=== PATIENT | female | born 1985 | race Caucasian/White ===

== ENCOUNTER 2016-12-08 13:28 | Emergency (ER) | payer OTHER ==
[~2016-12-08] VITALS: Ht 157.5 cm; Wt 58.0 kg
[~2016-12-08 13:28] MED LIST: CEPH500C2 PO; PRENTAB26 PO
[2016-12-08 13:36] VITALS: TEMP 36.9; Ht 157.5 cm; Wt 58.0 kg
--- NOTE | 2016-12-08 14:44 | EMERGENCY ROOM VISIT NOTE ---
History First contact with patient: 14:01 Chief Complaint: LEG PAIN,LEG INJURY Stated Complaint: POSSIBLE ABSESS ON L CALF History of Present Illness The patient is a 31 year old female who presents to the Emergency Room via private vehicle accompanied by male with complaints of "possible abscess left calf". The patient states that 2-3 days ago she noticed a swelling of the right posterior calf. She states that she does have a history of recent abscesses, of which the most recent is on the right antecubital region. She states the right AC region was drained on Thursday by Dr. Paris. She was placed on clindamycin and had the packing removed yesterday. It is currently covered but now she points to the right calf as a location of a new abscess. She states she's been taking the clindamycin, and has a days left. She denies any nausea, vomiting, fevers, chills. Review of Systems A complete 10-point Review of Systems was discussed with the patient, with pertinent positives and negatives listed in the History of Present Illness. All remaining Review of Systems questions can be considered negative unless otherwise specified. Past Medical/Surgical History Medical Problems: (1) ruptured membranes 31 weeks 1day Surgical Problems: (1) H/O hernia repair (2) H/O: section Family History No significant family history Social History Smoking Status: Current Every Day Smoker Alcohol Use: occasionally Drug Use: none Marital Status: single Housing Status: lives alone Occupation Status: employed Current/Historical Medications Scheduled Buprenorphine Hcl-Naloxone Hcl (Suboxone 8-2 Mg), 8 MG SL AMPM Clindamycin Hcl (Cleocin), 300 MG PO Q6H Allergies Coded Allergies: Morphine (Unverified Allergy, Severe, RASH, 05/14/16) Sulfamethoxazole w/Trimethoprim (Verified Allergy, Intermediate, HIVES, ) Codeine (Verified Allergy, Unknown, HIVES, 05/14/16) Levofloxacin (Verified Allergy, Unknown, HIVES, 05/30/16) Nitrofurantoin (Verified Allergy, Unknown, 05/14/16) Penicillins (Verified Allergy, Unknown, AMOXICILLIN, 05/14/16) Quinolones (Verified Adverse Reaction, Intermediate, NEURO SIDE EFFECTS, ) Physical Exam Vital Signs Date Time Temp Pulse Resp B/P Pulse Ox O2 Delivery O2 Flow Rate FiO2 12/08/16 19:30 82 18 116/80 96 Room Air 12/08/16 17:57 79 16 113/75 95 12/08/16 15:41 86 16 109/63 98 Room Air 12/08/16 13:36 36.9 95 18 117/72 98 Room Air Physical Exam VITAL SIGNS - Vital signs and nursing notes were reviewed. Patient is afebrile , normotensive, non-tachycardic and is saturating well on room air 98% GENERAL -31-year-old female appearing her stated age who is in no acute distress. Communicates well with provider and answers questions appropriately. SKIN - there is an erythematous 5 x 5.5 cm raised fluctuant region of the right posterior mid calf. There is also a 4 x 4 centimeter erythematous slightly raised and excised/open and draining wound on the AC. HEAD - NC/AT. EYES - PERRL with EOMI bilaterally. Sclera anicteric. Palpebral conjunctiva pink and moist with no injection noted. EARS - No deformities of external structures noted on gross examination bilaterally. No pain elicited with palpation of the tragus bilaterally. External auditory canals without discharge or otorrhea. Tympanic membranes pearly justice without retraction or bulging. No fluid or purulent material visualized behind the TM. Handle of malleus, umbo, cone of light, pars tensa/ flaccid all easily visualized. NOSE - Midline and without cyanosis. No epistaxis or purulent drainage noted. Septum midline without deviation or septal hematoma noted. MOUTH/OROPHARYNX - Without perioral cyanosis. Buccal mucosa pink and moist and without leukoplakia. Tongue midline with equal elevation of palate bilaterally. No tonsillar hypertrophy, erythema, or exudates noted. [] dentition noted. NECK - Neck with FROM. Supple to palpation. [] lymphadenopathy noted. No nuchal rigidity. LUNGS - Chest wall symmetric without accessory muscle use, intercostals retractions, or central cyanosis. Normal vesicular breath sounds CTA B/L. No wheezes, rales, or rhonchi appreciated. CARDIAC - RRR with S1/S2. No murmur, rubs, or gallops appreciated. ABDOMEN - Abdominal contour [] without pulsations or visible masses. BS normoactive all four quadrants. No tenderness, palpable masses, hepatosplenomegaly, or ascites noted. EXTREMITIES - No clubbing or peripheral cyanosis. No pretibial edema present. +3 /5 radial, posterior tibial, and dorsalis pedis pulses palpated throughout. +5/ 5 strength noted in UE/LE bilaterally. NEUROLOGIC - Cranial nerves II through XII grossly intact. Sensory intact to light touch throughout. Patellar reflexes +2/4. PSYCH - A&Ox3 and cooperates fully with examiner. Pt is very pleasant and interacts well with examiner. Medical Decision & Procedures ER Provider Diagnostic Interpretation: Venous Doppler right leg RIGHT VENOUS DOPP LOWER EXT UNILAT CLINICAL HISTORY: Abscess of RLE, rule out additional DVT Right pain. Edema. TECHNIQUE: Ultrasound COMPARISON STUDY: None FINDINGS: Normal venous Doppler right leg IMPRESSION: Normal venous Doppler right leg Electronically signed by: David Jacobs M.D. 12/08/2016 5:52 PM Dictated Date/Time: 12/08/2016 5:51 PM Medications Administered Medications (Trade) Dose Ordered Sig/Kleber Route Start Time Stop Time Status Last Admin Dose Admin Lorazepam (Ativan Tab) 0.5 mg NOW STAT SL 12/08/16 18:14 12/08/16 18:16 DC 12/08/16 18:28 0.5 MG Medical Decision Patient was seen and evaluated as above. She presents with a clear abscess on the right lower extremity. She also has evidence of a healing, incision and drainage of the right antecubital fossa. I did offer drainage of the right leg but the patient declined, stating that she had atraumatic experience on Thursday with the drainage of the right arm. She was placed upon clindamycin at that time and has been taking it as prescribed. She has many antibiotic allergies. Thorough discussion was had with the patient and she continued to decline drainage. I stated that this is concerning, and he can become septic. She did agree to have a Doppler of the right lower extremity but obtained to rule out DVT as an additional ailment. This was negative. I informed the patient upon these findings and explained to her how I would drain the wound and extend her the importance of drainage and then she agreed to have the procedure. Although the patient is on our no narcotic list for prior behavior, I do believe it is appropriate in this setting to provide her with 0.5 mg of sublingual Ativan to help relax her for this procedure. I feel that if she does not have this performed at this time she will likely return anymore infectious state with potential sepsis. Thorough benefit versus risk was discussed with the patient regarding the procedure. The region was cleansed with Betadine and anesthetized with 2 mL's of 1% buffered lidocaine. Patient started to swell. It was draped in sterile fashion. An 11 blade scalpel was utilized to create a subcentimeter incision into the wound pocket. This expressed a dark bloody purulent material. Culture was sent to lab. The region was then thoroughly expressed digitally, and then irrigated with normal saline under pressure followed by sterile packing. She is to return in 48 hours for recheck and removal of the packing. She is to return sooner for worsening of her symptoms. An ultrasound was performed bedside of the right arm to rule out localized collection. Cobblestoning was noted without evidence of drainable pocket this time. This was also cleansed and dressed. The leg was also dressed with an abdominal pad. Patient was educated upon today's findings as well as to follow- up here in 48 hours or with her family doctor. She is to continue clindamycin which she is indicated she has. She was educated upon worrisome symptoms in which to return. She had questions prior to discharge and was discharged home in good condition. In evaluation treatment this patient the following differential diagnoses were entertained: DVT, cellulitis, abscess, sepsis, sirs, among others. Impression Primary Impression: Abscess of right leg Additional Impression: Abscess of right arm Departure Information Dispostion Home / Self-Care Condition GOOD Referrals Mario Hercules III, M.D. (PCP) David Salinas M.D. Patient Instructions My [facility] Additional Instructions You were seen in the emergency Department for an abscess of the right lower extremity and right arm. Please continue the Clindamycin. You may try calling the surgeon, Dr. Salinas with number listed above to discuss potential excision. Please return with fevers, chills, worsening redness or swelling or any new/ concerning symptoms. Please return to the emergency department with any new/concerning symptoms. Problem Qualifiers
--- NOTE | 2016-12-08 17:53 | DIAGNOSTIC IMAGING REPORT ---
Venous Doppler right leg RIGHT VENOUS DOPP LOWER EXT UNILAT CLINICAL HISTORY: Abscess of RLE, rule out additional DVT Right pain. Edema. TECHNIQUE: Ultrasound COMPARISON STUDY: None FINDINGS: Normal venous Doppler right leg IMPRESSION: Normal venous Doppler right leg Electronically signed by: David Jacobs M.D. 12/08/2016 5:52 PM Dictated Date/Time: 12/08/2016 5:51 PM
[2016-12-08] MEDS ORDERED: LORAZEPAM 0.5 MG TAB SL STA (18:14)
[2016-12-08] MEDS ORDERED: XYLOCAINE 1%/SOD BICARB 20 ML VIAL INFIL STA (18:14)
--- NOTE | 2016-12-08 19:14 | EMERGENCY ROOM VISIT NOTE ---
ED Visit Note First contact with patient: 14:01 Staff note: I have reviewed the Patients chart and have discussed this case with my PA. I generally agree with the ED note and findings.
[2016-12-08 19:30] VITALS: BP 116/80; PULSE 82; O2SAT 96
[2016-12-10] MEDS ORDERED: CLIN300C2 PO (13:46)
--- NOTE | 2016-12-10 13:53 | Pharmacy Progress Note ---
ED Pharmacist Culture FollowUp Date of Service: Dec 10, 2016. Patient was receiving clindamycin prior to arrival, which should cover the Staph aureus (MSSA) growing from the patient's wound culture.
== END 2016-12-08 19:30 | disposition home or self-care (01) ==
LOC: C.EDB 13:29 → C.EDD 19:30
DX: L02.415 Cutaneous abscess of right lower limb (principal); L02.413 Cutaneous abscess of right upper limb; F17.210 Nicotine dependence, cigarettes, uncomplicated; Z79.2 Long term (current) use of antibiotics; Z79.899 Other long term (current) drug therapy

== ENCOUNTER 2016-12-10 14:59 | Emergency (ER) | payer OTHER ==
[~2016-12-10] VITALS: Ht 157.5 cm; Wt 56.5 kg
[~2016-12-10 14:59] MED LIST changes: -CEPH500C2 PO; +CLIN300C2 PO; -PRENTAB26 PO
[2016-12-10 15:03] VITALS: TEMP 36.5; Ht 157.5 cm; Wt 56.5 kg
[2016-12-10] MEDS ORDERED: SERT50TA PO (15:35)
[2016-12-10] MEDS ORDERED: ACET-1256 PO (15:35)
[2016-12-10] MEDS ORDERED: CLON1TAB3 PO (15:35)
[2016-12-10] MEDS ORDERED: IBUP-103 PO (15:35)
--- NOTE | 2016-12-10 15:59 | EMERGENCY ROOM VISIT NOTE ---
History First contact with patient: 15:17 Chief Complaint: OTHER COMPLAINT Stated Complaint: RETURN FOLLOW UP History of Present Illness The patient is a 31 year old female who presents to the Emergency Room via private vehicle with complaints of "return follow-up". She was seen here 2 days ago for I&D of her right leg and management of her right arm abscess. The patient states that she believes the wounds are healing well, and has been taking the clindamycin. She denies any fevers, chills, nausea, vomiting, chest pain or shortness of breath. She denies any red streaking. Review of Systems A complete 6-point Review of Systems was discussed with the patient, with pertinent positives and negatives listed in the History of Present Illness. All remaining Review of Systems questions can be considered negative unless otherwise specified. Past Medical/Surgical History Medical Problems: (1) ruptured membranes 31 weeks 1day Surgical Problems: (1) H/O hernia repair (2) H/O: section Family History No significant family history Social History Smoking Status: Current Every Day Smoker Alcohol Use: occasionally Drug Use: none Marital Status: single Housing Status: lives alone Occupation Status: employed Current/Historical Medications Scheduled Buprenorphine Hcl-Naloxone Hcl (Suboxone 8-2 Mg), 8 MG SL AMPM Clindamycin Hcl (Cleocin), 300 MG PO Q6H Sertraline (Zoloft), 50 MG PO DAILY Scheduled PRN Acetaminophen (Tylenol), 1,000 MG PO Q6H PRN for Pain Clonazepam (Klonopin), 1 MG PO DAILY PRN for Anxiety Ibuprofen Tab (Advil), 400 MG PO Q6H PRN for Pain Allergies Coded Allergies: Morphine (Unverified Allergy, Severe, RASH, 05/14/16) Sulfamethoxazole w/Trimethoprim (Verified Allergy, Intermediate, HIVES, ) Codeine (Verified Allergy, Unknown, HIVES, 05/14/16) Levofloxacin (Verified Allergy, Unknown, HIVES, 05/30/16) Nitrofurantoin (Verified Allergy, Unknown, 05/14/16) Penicillins (Verified Allergy, Unknown, AMOXICILLIN, 05/14/16) Quinolones (Verified Adverse Reaction, Intermediate, NEURO SIDE EFFECTS, ) Physical Exam Vital Signs Date Time Temp Pulse Resp B/P Pulse Ox O2 Delivery O2 Flow Rate FiO2 12/10/16 16:21 89 16 135/93 96 12/10/16 15:03 36.5 91 16 108/78 96 Room Air Physical Exam VITAL SIGNS - Vital signs and nursing notes were reviewed. Patient is afebrile , normotensive, non-tachycardic and saturating well on room air at 96%. GENERAL -31 -year-old female appearing her stated age who is in no acute distress. Communicates well with provider and answers questions appropriately. SKIN - Without rashes. There is slight erythema extending beyond the circumferential marie created by the marking pen. There is evidence of less edema, and overall the erythema is improving. No evidence of worsening. Minimal drainage. This is for both of the sites. Medical Decision & Procedures Medical Decision The patient was seen and evaluated as above. I was personally involved in her case on her previous visit. I recommended she return for 48 hour recheck, which she is here for today. The right antecubital area incision and drainage which was performed by family doctor showing signs of healing with minimal drainage. There is a thin layer of biofilm overlying beefy red granulation tissue on the right AC. This was cleansed with normal saline and dressed with bacitracin, Telfa and Coban. For the right calf, I did elect to remove the packing, thoroughly irrigated with saline and then dressed this with Telfa and paper tape. Patient tolerated this well. Overall improvement. She brought her clindamycin tablets with her and still has 30 tablets. She is to take this 1 tablet every 6 hours for the next 7 days. She seems to have good clinical improvement. She is to follow-up in 48 hours with her family doctor or return here for persistent or worsening symptoms. She was educated upon worrisome symptoms which returned, and was discharged home in good condition. In the evaluation treatment this patient the following differential diagnoses were entertained: Healing cellulitis, sepsis, SIRS, among others. Impression Primary Impression: Encounter for wound re-check Additional Impression: healing abscess and cellulitis Departure Information Dispostion Home / Self-Care Condition GOOD Referrals No Doctor, Assigned (PCP) Patient Instructions My [facility] Additional Instructions You were seen in the emergency Department for a wound recheck of your right arm and right leg. These appear to be improving. Please continue the dressings as we discussed. Please only use the bacitracin/antibiotic ointment for the next 2-3 days. Please and keep a dry dressing on the wound until healed. Please do not allow the area be too moist. It is recommended that you either return here or follow-up with her family doctor for an additional recheck in 48 hours. As we discussed if you has worsening or persistent symptoms please return. If you develop any increased redness, swelling, drainage, chills, fever, nausea, vomiting or any new/ concerning symptoms please return immediately. Please return to emergency department with any new/concerning symptoms. Problem Qualifiers
[2016-12-10 16:21] VITALS: BP 135/93; PULSE 89; O2SAT 96
[2016-12-10] MEDS ORDERED: BUPR8MIS SL (21:17)
== END 2016-12-10 16:21 | disposition home or self-care (01) ==
LOC: C.EDB 15:00 → C.EDD 16:21
DX: Z09 Encounter for follow-up examination after completed treatment for conditions other than malignant neoplasm (principal); L02.413 Cutaneous abscess of right upper limb; L02.415 Cutaneous abscess of right lower limb; F17.210 Nicotine dependence, cigarettes, uncomplicated; Z79.899 Other long term (current) drug therapy

== ENCOUNTER 2016-12-15 15:15 | Emergency (ER) | payer OTHER ==
[~2016-12-15] VITALS: Ht 157.5 cm; Wt 59.4 kg
[~2016-12-15 15:15] MED LIST changes: +ACET-1256 PO; +BUPR8MIS SL; +CLON1TAB3 PO; +IBUP-103 PO; +SERT50TA PO
[2016-12-15 15:31] VITALS: TEMP 36.7; Ht 157.5 cm; Wt 59.4 kg
--- NOTE | 2016-12-15 16:20 | DIAGNOSTIC IMAGING REPORT ---
LEFT SHOULDER MIN 2 VIEWS ROUTINE CLINICAL HISTORY: Left shoulder pain COMPARISON: None. DISCUSSION: No fractures or dislocations are visualized. There are no visible periarticular calcifications. IMPRESSION: No fractures dislocations or destructive lesions are visualized Electronically signed by: Manny Abbasi M.D. 12/15/2016 4:19 PM Dictated Date/Time: 12/15/2016 4:18 PM
[2016-12-15] MEDS ORDERED: SERT50TA PO (16:31)
[2016-12-15] MEDS ORDERED: CYCL10TA6 PO (17:01)
[2016-12-15 17:20] VITALS: BP 102/68; PULSE 98; O2SAT 98
--- NOTE | 2016-12-16 17:04 | EMERGENCY ROOM VISIT NOTE ---
ED Visit Note First contact with patient: 15:54 Chief Complaint: Left shoulder pain. History of Present Illness: Ms. Hammer is a 31-year-old female who ambulates into the ED accompanied by a male friend complaining of left shoulder pain. Historically patient denies any significant injuries or surgeries to the left shoulder. Patient reports yesterday morning she woke from sleep with left shoulder pain. She reports any pain before going to sleep and denies any significant direct or repetitive trauma over the last few days. Since waking yesterday she reports she's been having increasing pain. Currently she describes her pain as a sharp and throbbing sensation. She places the majority of her discomfort in the midportion of the trapezius between the shoulder blades but there is also pain located in the lateral portion of the trapezius. She rates her discomfort 6/10. Her pain is nonradiating. Her pain worsens with palpation throughout the trapezius muscle also movements of her shoulder above her head. She has not identified any alleviating factors related to the pain. She has not taken any medications for pain prior to arrival at the hospital. She denies any associated symptoms including fevers, chills, sweats, skin eruptions, skin color changes, headaches , neck pain/stiffness, upper respiratory tract symptoms, upper extremity weakness/numbness/tingling. Review of Systems: As noted above in history of present illness. 8 body systems were reviewed and found to be negative as noted above. Past Medical History: Bronchitis, pneumonia, unspecified urinary problems, status post section and unspecified hernia repair. Current Medications: Suboxone, Cleocin, Tylenol, ibuprofen, Klonopin, Zoloft. Allergies to Medications: Codeine, morphine, Bactrim, Levaquin, penicillin, quinolones, nitrofurantoin. Social History: Patient is currently employed; she feels safe in her home environment; she admits to tobacco and alcohol use. Physical Examination: Vital Signs: Date Time Temp Pulse Resp B/P Pulse Ox O2 Delivery O2 Flow Rate FiO2 12/15/16 17:20 98 16 102/68 98 Room Air 12/15/16 15:31 36.7 110 17 108/84 97 Room Air GENERAL: 31-year-old female in mild to moderate distress due to pain, nontoxic- appearing, afebrile and hemodynamically stable. NEUROLOGICAL: Awake, alert and oriented to person, place and time. Answering questions appropriately and following commands. Normal gait. Good hand eye coordination. No focal motor sensory deficits. SKIN: Warm, dry and pink. No soft tissue eruptions or trauma noted. HEENT: Atraumatic and normocephalic. BACK: No tenderness over the bony cervical and thoracic spine. Patient does have moderate tenderness through the left trapezius muscle between the scapula and over the midportion above the clavicle. There is spasm predominantly in the area between a scapula. There is no local step-offs, swelling, ecchymosis or erythema. No CVA tenderness. THORAX: Lungs sounds are clear to auscultation and equal bilaterally with symmetrical chest wall. No wheezing, rales or rhonchi. LEFT UPPER EXTREMITY: No bony tenderness over the clavicle, acromioclavicular joint, humeral head, scapula or proximal humerus. Full range of motion in all movements of the shoulder against resistance. 2+ tricipital, bicipital and brachial radialis deep tendon reflexes intact and equal bilaterally. 4/5 muscle strength in all movements of the shoulder. Distal pulses and sensations are intact. ED Course: Patient is assessed as noted above. Left Shoulder X-Rays: Were read by myself and the radiologist showing no acute fractures or dislocations. No signs of degenerative changes. Patient shoulder was placed in a sling. Patient was educated about tonight's findings and instructed on her treatment plan; she verbalizes understanding and agreement with this plan. Clinical Impression: Trapezius muscle spasm. Disposition: Patient discharged home in stable condition accompanied by male friend; prior to departure she was reassessed and subjectively reported she was feeling worse and rated her discomfort 6/10. Plan: Comfort measures including alternating ibuprofen and acetaminophen, ice and sling use were discussed with the patient. Patient was placed on a Flexeril 10 mg every 8 hours for muscle spasm. Patient was encouraged to exit the sling every couple hours while awake in the day and do simple range of motion exercises. Patient was encouraged to follow-up with her primary care physician for recheck in 3-4 days and possible referral to orthopedics. Patient was encouraged return the ED for worsening/uncontrolled pain, extremity weakness/numbness/tingling or any new/concerning symptoms.
== END 2016-12-15 17:20 | disposition home or self-care (01) ==
LOC: C.EDB 15:16 → C.EDD 17:20
DX: M62.838 Other muscle spasm (principal)

== ENCOUNTER 2017-03-11 16:18 | Emergency (ER) | payer OTHER ==
[~2017-03-11] VITALS: Ht 157.5 cm; Wt 54.9 kg
[2017-03-11 16:24] VITALS: TEMP 36.7; Ht 157.5 cm; Wt 54.9 kg
[2017-03-11] MEDS ORDERED: SERT-234 PO (17:30)
--- NOTE | 2017-03-11 17:59 | DIAGNOSTIC IMAGING REPORT ---
CERVICAL SPINE 5 VIEWS HISTORY: neck/upper back pain/spasms COMPARISON: None. FINDINGS: The cervical spine is visualized from C1 through the superior endplate of T1. There is no fracture. No subluxation. Mild reversal of the normal lordotic curvature. Mild anterior disc space narrowing at C5-C6. Remaining disc spaces are preserved. Bilateral neural foraminal pain. Prevertebral soft tissues and the atlantodens interval are intact. IMPRESSION: No fracture or subluxation within the cervical spine. Reversal of the normal curvature with mild anterior disc space narrowing at C5-C6. Electronically signed by: Sander Guerrero M.D. 03/11/2017 5:57 PM Dictated Date/Time: 03/11/2017 5:56 PM
--- NOTE | 2017-03-11 17:59 | DIAGNOSTIC IMAGING REPORT ---
THORACIC SPINE 3 VIEWS HISTORY: neck/upper back pain/spasms COMPARISON: None. FINDINGS: There is no fracture. No subluxation. Disc spaces are preserved. IMPRESSION: No fracture or subluxation within the thoracic spine. Electronically signed by: Sander Guerrero M.D. 03/11/2017 5:58 PM Dictated Date/Time: 03/11/2017 5:57 PM
[2017-03-11] MEDS ORDERED: KETOROLAC TROMETHAMINE 60 MG/2 ML VIAL IM STA (18:46)
[2017-03-11] MEDS ORDERED: NAPR-1169 PO (18:49)
--- NOTE | 2017-03-11 18:50 | EMERGENCY ROOM VISIT NOTE ---
History First contact with patient: 16:47 Chief Complaint: SHOULDER PAIN Stated Complaint: LEFT SHOULDER INJURY History of Present Illness The patient is a 31 year old female who presents to the Emergency Room with complaints of left shoulder pain. The patient states she has a history of chronic left shoulder pain. She has dislocated her shoulder in the past and states that she had a flareup of her pain several years ago. She reports that she perform physical therapy in the past which helped. She has had an MRI which showed an issue with the cartilage. She states that she woke up with pain a few days ago. The pain radiates from her left neck/upper back into the shoulder. It does not radiate down the arm. She denies any numbness or weakness. She rates the discomfort an 8/10. She takes muscle relaxers at home for the pain. Review of Systems A complete 10 point review of systems was reviewed with the patient with pertinent positives and negatives as per history of present illness. All else were negative. Past Medical/Surgical History Medical Problems: (1) ruptured membranes 31 weeks 1day Surgical Problems: (1) H/O hernia repair (2) H/O: section Family History No significant family history Social History Smoking Status: Current Every Day Smoker Alcohol Use: occasionally Drug Use: none Marital Status: single Housing Status: lives alone Occupation Status: employed Current/Historical Medications Scheduled Buprenorphine Hcl-Naloxone Hcl (Suboxone 8-2 Mg), 8 MG SL AMPM Naproxen (Naprosyn), 500 MG PO DAILY Sertraline (Zoloft), 100 MG PO QPM Tizanidine (Zanaflex), 4 MG PO BID Scheduled PRN Acetaminophen (Tylenol), 1,000 MG PO Q6H PRN for Pain Clonazepam (Klonopin), 1 MG PO DAILY PRN for Anxiety Ibuprofen Tab (Advil), 400 MG PO Q6H PRN for Pain Allergies Coded Allergies: Morphine (Unverified Allergy, Severe, RASH, 03/11/17) Sulfamethoxazole w/Trimethoprim (Verified Allergy, Intermediate, HIVES, ) Codeine (Verified Allergy, Unknown, HIVES, 03/11/17) Levofloxacin (Verified Allergy, Unknown, HIVES, 03/11/17) Nitrofurantoin (Verified Allergy, Unknown, 03/11/17) Penicillins (Verified Allergy, Unknown, AMOXICILLIN, 03/11/17) Quinolones (Verified Adverse Reaction, Intermediate, NEURO SIDE EFFECTS, ) Physical Exam Vital Signs Date Time Temp Pulse Resp B/P (MAP) Pulse Ox O2 Delivery O2 Flow Rate FiO2 03/11/17 19:28 93 18 99/65 97 Room Air 03/11/17 16:24 36.7 107 16 102/65 95 Room Air Physical Exam VITALS: Vitals are noted on the nurse's note and reviewed by myself. Vital signs stable. GENERAL: This is a 31-year-old female, in no acute distress, nondiaphoretic, well-developed well-nourished. HEART: Regular rate and rhythm without murmurs gallops or rubs. LUNGS: Clear to auscultation bilaterally without wheezes, rales or rhonchi. MUSCULOSKELETAL: There is diffuse tenderness over the left trapezius muscle and left cervical and upper thoracic paraspinous muscles. Full range of motion of the shoulder. Strength 5/5 in bilateral upper extremities. NEURO: Patient was alert and oriented to person place and time. Normal sensation to light and sharp touch. Medical Decision & Procedures ER Provider Diagnostic Interpretation: CERVICAL SPINE 5 VIEWS FINDINGS: The cervical spine is visualized from C1 through the superior endplate of T1. There is no fracture. No subluxation. Mild reversal of the normal lordotic curvature. Mild anterior disc space narrowing at C5-C6. Remaining disc spaces are preserved. Bilateral neural foraminal pain. Prevertebral soft tissues and the atlantodens interval are intact. IMPRESSION: No fracture or subluxation within the cervical spine. Reversal of the normal curvature with mild anterior disc space narrowing at C5-C6. THORACIC SPINE 3 VIEWS FINDINGS: There is no fracture. No subluxation. Disc spaces are preserved. IMPRESSION: No fracture or subluxation within the thoracic spine. Medications Administered Medications (Trade) Dose Ordered Sig/Kleber Route Start Time Stop Time Status Last Admin Dose Admin Ketorolac Tromethamine (Toradol Inj) 60 mg NOW STAT IM 03/11/17 18:46 03/11/17 18:48 DC 03/11/17 18:30 60 MG ED Course The patient was evaluated as above. X-rays of the cervical and thoracic spine were performed and read by radiology as above. Patient was reevaluated and findings were discussed. She will be given an injection of Toradol. Discharge instructions were reviewed with the patient. The patient verbalized understanding of my assessment and treatment plan and was discharged home in good condition. Medical Decision Differential diagnosis includes cervical radiculopathy, muscle spasm, rotator cuff injury, among others. The patient was evaluated as above. She has tenderness primarily in the left trapezius muscle. C-spine x-ray did show some reversal of the normal curvature. The patient likely has pain secondary to muscle spasm. She is already taking muscle relaxers at home. She was prescribed naproxen and conservative measures were discussed. The patient will follow-up with orthopedics. She verbalized understanding of my assessment and treatment plan and was discharged home in good condition. Medication reconciliation: I attest that I have personally reviewed the patient 's current medication list. Blood pressure screening: Patient was found to have normal blood pressure on screening and does not require follow-up. Impression Primary Impression: Cervical paraspinal muscle spasm Departure Information Dispostion Home / Self-Care Condition GOOD Prescriptions Naproxen (Naprosyn) 500 Mg Tab 500 MG PO DAILY for 7 Days, #7 TAB Prov: Sheila Reynoso ., VENKATA 03/11/17 Referrals Mario Hercules III, M.D. (PCP) Patient Instructions My [facility] Additional Instructions Naprosyn as prescribed. Continue the muscle relaxers at home. Rest the shoulder as much as possible. Some gentle stretching may help. Follow up with orthopedics as scheduled. Return to the emergency department with any new/concerning symptoms.
[2017-03-11] MEDS ORDERED: TIZA4CAP PO (19:04)
[2017-03-11 19:28] VITALS: BP 99/65; PULSE 93; O2SAT 97
== END 2017-03-11 19:30 | disposition home or self-care (01) ==
LOC: C.EDB 16:19 → C.EDD 19:30
DX: M62.838 Other muscle spasm (principal); F17.200 Nicotine dependence, unspecified, uncomplicated; Z79.899 Other long term (current) drug therapy; Z88.0 Allergy status to penicillin; Z88.2 Allergy status to sulfonamides; Z88.5 Allergy status to narcotic agent; Z88.8 Allergy status to other drugs, medicaments and biological substances

== ENCOUNTER 2017-04-04 13:42 | Emergency (ER) | payer OTHER ==
[~2017-04-04] VITALS: Ht 157.5 cm; Wt 58.3 kg
[~2017-04-04 13:42] MED LIST changes: -CLIN300C2 PO; +SERT-234 PO; -SERT50TA PO; +TIZA4CAP PO
[2017-04-04 13:48] VITALS: TEMP 37.2; Ht 157.5 cm; Wt 58.3 kg
[2017-04-04] MEDS ORDERED: XYLOCAINE 1%/SOD BICARB 20 ML VIAL INFIL ONE (14:15)
[2017-04-04] MEDS ORDERED: CLINDAMYCIN IV 900 MG in DEXTROSE 5% 100ML 100 ML IV ONE (15:00)
[2017-04-04 15:55] LABS: BASO % 0.2 %; BASO ABS # 0.02 K/uL (0-0.2); COMPLETE YES; EOS % 2.4 %; HEMATOCRIT 29.5 % (37-47); IG% 0.2 %; LYMPH % 28.5 %; LYMPH ABS # 2.34 K/uL (1.2-3.4); MEAN CORPUSCULAR HEMOGLOBIN 27.9 pg (25-34); MEAN CORPUSCULAR HGB CONC 33.2 g/dl (32-36); NEUT % 63.7 %; PLATELET COUNT 236 K/uL (130-400); RED BLOOD COUNT 3.51 M/uL (4.2-5.4); WHITE BLOOD COUNT 8.21 K/uL (4.8-10.8)
[2017-04-04 16:13] LABS: CALCIUM 8.4 mg/dl (8.5-10.1); CREATININE 0.54 mg/dl (0.60-1.20); POTASSIUM 3.7 mmol/L (3.5-5.1)
[2017-04-04 17:26] LABS: URINE APPEARANCE CLEAR (CLEAR); URINE BILIRUBIN NEG (NEG); URINE COLOR YELLOW; URINE EPITHELIAL CELL AUTO >30 /lpf (0-5); URINE NITRITE POS (NEG); URINE SPECIFIC GRAVITY 1.013 (1.000-1.030); UROBILINOGEN NEG (NEG)
[2017-04-04 17:28] LABS: MANUAL MICROSCOPIC REQUIRED? NO; REVIEW REQ? NO
[2017-04-04 17:32] VITALS: BP 111/77; PULSE 112; O2SAT 98
[2017-04-04] MEDS ORDERED: CLC/300 PO (17:42)
--- NOTE | 2017-04-04 22:49 | EMERGENCY ROOM VISIT NOTE ---
ED Visit Note First contact with patient: 13:53 CHIEF COMPLAINT: Painful mass on the right lateral lower leg and right bicep HISTORY OF PRESENT ILLNESS: This 32-year-old white female patient noticed a hard tender area on her right calf and her right bicep 2 days ago. They are slowly getting larger, more painful and tender. She states she had a fever last night of 103, but is currently afebrile. No nausea, vomiting, or loss of appetite. There has been no drainage from the areas. There was no injury to the areas preceding the infection. No treatment yet. Pain is 9/10. Positive prior history of similar episode. She is well-known to the ED. She previously had an abscess on this right leg in December. She underwent successful I&D here. She has a history of IV drug abuse but denies any recent use. She is also concerned about a possible UTI. She has had some urgency and dysuria. She has a history of UTIs. No hematuria. Her and child accompany her today. REVIEW OF SYSTEMS: REVIEW OF SYSTEM: HEENT: No dizziness, visual problems, hearing loss, or tinnitus. There is no difficulty swallowing and no oral lesions are present. LYMPH: No adenopathy. PULMONARY: No cough, shortness of breath, sputum production or hemoptysis. CARDIOVASCULAR: No chest pain, palpitations, shortness of breath or peripheral edema. GASTROINTESTINAL: No diarrhea, constipation, nausea, vomiting, or abdominal pain. GENITOURINARY: No dysuria, frequency, urgency or nocturia. NEUROLOGIC: No weakness, muscle tenderness, epilepsy or history of neurological problems. No history of chronic headaches. MUSCULOSKELETAL: No history of joint tenderness/swelling. No history of arthritis or arthralgias. SKIN: No rashes. PSYCHIATRIC: No history of depression or mental illness. ENDOCRINE: No history of diabetes, thyroid disorders, or abnormal hair growth. PMH: Supplemental sheet was reviewed and signed. Previous surgeries: Medical History: Significant for history of IV drug abuse. Current medications: Reviewed and filed in patient's chart Allergies: Codeine, Levaquin, morphine, Macrobid, penicillin, quinolones, Bactrim Family history: Noncontributory. Last tetanus: Unknown SOCIAL HISTORY: . Positive tobacco use. Unemployed. PHYSICAL EXAM: Vital Signs: Temperature 37.2. Normal BP. Reviewed and filed in patient's chart. General: Well-developed, well-nourished, young white female , who looks older than her stated age. Laying on a bed. Alert and oriented. She is anxious and tearful. Skin: There is an indurated area on the lateral right calf which measures about 6cm in diameter. It is firm. There is a red zone of inflammation around it that measures around 11 cm in diameter but no lymphangitis. It is warm to touch. There is a large pustule in the center. Active drainage. Area is very tender to touch. She has a second area of induration on her anterior right bicep. It is approximately 3 cm in diameter. There is also a zone of inflammation around it measuring around 5 cm in diameter. It is also warm to touch and very tender. No pustules present. Multiple other scars are present on her arms and legs from previous abscesses. She also has numerous scars on her arms that are consistent with previous IV drug use. MUSCULOSKELETAL: Patient has intact motor function to the ankle, knee, and elbow on the right side. Normal strength. Neurologic: Gross sensation is intact across the upper and lower extremities by soft touch. Data: UA obtained today is questionable for UTI. Cultures were sent. CBC and PRP were obtained. They are unremarkable. No elevation in white count. EMERGENCY DEPARTMENT COURSE: Informed oral consent was obtained for incision and drainage. Right calf and right bicep were prepped with Betadine and draped with a sterile towel. Wounds were anesthetized using 3ml 1% plain lidocaine in a direct infiltration for each. #11 blade was used to sharply incised the abscesses. Copious purulent material was expressed from the wounds. Both abscesses was probed using needle drivers to break up interior loculations. Wound was irrigated copiously using Betadine diluted with normal sterile saline under jet spray lavage. They were then packed using sterile ribbon gauze. Outer dressing was placed. IV was established with significant difficulty. Upper extremity veins were unsuccessful and access was obtained through her dorsal foot. Labs were obtained. She was given clindamycin 900 mg IV in the ED. DIAGNOSIS: Skin Abscess of the right lower leg and right bicep DISCHARGE INSTRUCTIONS & TREATMENT: Patient was educated regarding today's findings. Conservative care measures were discussed. Change the dressings if it becomes soiled or blood-stained and return to the ED in 48 hours to remove the noemi. Prescription was given for clindamycin 300 mg 3 times a day for 7 days. Return if any problems such as fever or increasing pain develop. See a general surgeon if an abscess re-occurs in the same area in the future for consideration of excision. Skin abscess handout was provided. Warm moist compresses to the area several times a day to promote drainage. Possibility of early UTI was discussed. This should be covered using her clindamycin 7 days. She may obtain final cultures when she returns for her packing removal. Possibility of MRSA colonization was discussed given her frequency of abscesses. She was tested in 2007 and was negative. Conservative she speak with her PCP about additional testing. Possibility of abscesses resulting from subcutaneous illegal drug injection was also discussed. She continues to deny IV drug use at this time. Problem List Surgical Problems: (1) H/O hernia repair Status: Resolved (2) H/O: section Status: Resolved Current/Historical Medications Scheduled Buprenorphine Hcl-Naloxone Hcl (Suboxone 8-2 Mg), 8 MG SL AMPM Clindamycin HCl (Clindamycin HCl), 1 CAP PO TID Sertraline (Zoloft), 100 MG PO QPM Tizanidine (Zanaflex), 4 MG PO BID Scheduled PRN Acetaminophen (Tylenol), 1,000 MG PO Q6H PRN for Pain Clonazepam (Klonopin), 1 MG PO DAILY PRN for Anxiety Ibuprofen Tab (Advil), 400 MG PO Q6H PRN for Pain Allergies Coded Allergies: Morphine (Unverified Allergy, Severe, RASH, 04/04/17) Sulfamethoxazole w/Trimethoprim (Verified Allergy, Intermediate, HIVES, ) Codeine (Verified Allergy, Unknown, HIVES, 04/04/17) Levofloxacin (Verified Allergy, Unknown, HIVES, 04/04/17) Nitrofurantoin (Verified Allergy, Unknown, 04/04/17) Penicillins (Verified Allergy, Unknown, AMOXICILLIN, 04/04/17) Quinolones (Verified Adverse Reaction, Intermediate, NEURO SIDE EFFECTS, ) Vital Signs Date Time Temp Pulse Resp B/P (MAP) Pulse Ox O2 Delivery O2 Flow Rate FiO2 04/04/17 17:32 112 18 111/77 98 Room Air 04/04/17 13:48 37.2 125 20 118/73 100 Room Air Laboratory Results 04/04/17 15:46 Red Blood Count 3.51, Mean Corpuscular Volume 84.0, Mean Corpuscular Hemoglobin 27.9, Mean Corpuscular Hemoglobin Concent 33.2, Mean Platelet Volume 10.0, Neutrophils (%) (Auto) 63.7, Lymphocytes (%) (Auto) 28.5, Monocytes (%) (Auto) 5.0, Eosinophils (%) (Auto) 2.4, Basophils (%) (Auto) 0.2, Neutrophils # (Auto) 5.22, Lymphocytes # (Auto) 2.34, Monocytes # (Auto) 0.41, Eosinophils # (Auto) 0.20, Basophils # (Auto) 0.02 04/04/17 15:46 Test 04/04/17 15:46 04/04/17 17:10 White Blood Count 8.21 K/uL (4.8-10.8) Red Blood Count 3.51 M/uL (4.2-5.4) Hemoglobin 9.8 g/dL (12.0-16.0) Hematocrit 29.5 % (37-47) Mean Corpuscular Volume 84.0 fL (80-100) Mean Corpuscular Hemoglobin 27.9 pg (25-34) Mean Corpuscular Hemoglobin Concent 33.2 g/dl (32-36) Platelet Count 236 K/uL (130-400) Mean Platelet Volume 10.0 fL (7.4-10.4) Neutrophils (%) (Auto) 63.7 % Lymphocytes (%) (Auto) 28.5 % Monocytes (%) (Auto) 5.0 % Eosinophils (%) (Auto) 2.4 % Basophils (%) (Auto) 0.2 % Neutrophils # (Auto) 5.22 K/uL (1.4-6.5) Lymphocytes # (Auto) 2.34 K/uL (1.2-3.4) Monocytes # (Auto) 0.41 K/uL (0.11-0.59) Eosinophils # (Auto) 0.20 K/uL (0-0.5) Basophils # (Auto) 0.02 K/uL (0-0.2) RDW Standard Deviation 44.9 fL (36.4-46.3) RDW Coefficient of Variation 14.4 % (11.5-14.5) Immature Granulocyte % (Auto) 0.2 % Immature Granulocyte # (Auto) 0.02 K/uL (0.00-0.02) Anion Gap 4.0 mmol/L (3-11) Est Creatinine Clear Calc Drug Dose 117.2 ml/min Estimated GFR () 143.7 Estimated GFR (Non- 124.0 BUN/Creatinine Ratio 10.0 (10-20) Calcium Level 8.4 mg/dl (8.5-10.1) Urine Color YELLOW Urine Appearance CLEAR (CLEAR) Urine pH 7.0 (4.5-7.5) Urine Specific [place] 1.013 (1.000-1.030) Urine Protein NEG (NEG) Urine Glucose (UA) NEG (NEG) Urine Ketones NEG (NEG) Urine Occult Blood NEG (NEG) Urine Nitrite POS (NEG) Urine Bilirubin NEG (NEG) Urine Urobilinogen NEG (NEG) Urine Leukocyte Esterase TRACE (NEG) Urine WBC (Auto) 5-10 /hpf (0-5) Urine RBC (Auto) 0-4 /hpf (0-4) Urine Hyaline Casts (Auto) 0 /lpf (0-5) Urine Epithelial Cells (Auto) >30 /lpf (0-5) Urine Bacteria (Auto) 2+ (NEG) Medications Administered Medications (Trade) Dose Ordered Sig/Kleber Route Start Time Stop Time Status Last Admin Dose Admin Clindamycin Phosphate 900 mg/ Dextrose 106 ml @ 100 mls/hr ONE ONCE IV 04/04/17 15:00 04/04/17 16:03 DC 04/04/17 16:41 100 MLS/HR Departure Information Prescriptions Clindamycin HCl (Clindamycin HCl) 300 Mg Cap 1 CAP PO TID for 7 Days, #21 CAP Prov: Alex Cottrell,P.A. 04/04/17 Referrals Mario Hercules III, M.D. (PCP) Patient Instructions My [facility]
== END 2017-04-04 17:59 | disposition home or self-care (01) ==
LOC: C.EDB 13:44
DX: L02.415 Cutaneous abscess of right lower limb (principal); L02.413 Cutaneous abscess of right upper limb

== ENCOUNTER 2017-04-06 18:14 | Emergency (ER) | payer OTHER ==
[~2017-04-06] VITALS: Ht 157.5 cm; Wt 58.3 kg
[~2017-04-06 18:14] MED LIST changes: +CLC/300 PO
[2017-04-06 18:35] VITALS: Ht 157.5 cm; Wt 58.3 kg
[2017-04-06 19:13] VITALS: BP 106/72; PULSE 58; TEMP 36.8; O2SAT 100
--- NOTE | 2017-04-07 15:06 | EMERGENCY ROOM VISIT NOTE ---
ED Visit Note First contact with patient: 18:57 CHIEF COMPLAINT: Abscess recheck and packing removal. HISTORY OF PRESENT ILLNESS: Ms. Hammer is a 32-year-old female who ambulates into the ED accompanied by male friend in a child requesting recheck of 2 abscess that she had an I&D performed on 2 days ago and packing removal. She reports she still has mild pain and swelling in the area of her abscesses. There is been some mild drainage but she has noted markedly decrease in redness and swelling. There has been no pain, swelling, redness, or drainage from the wound and he feels like the laceration is healing well. She denies fevers, chills, sweats, other skin eruptions, other skin color changes, chest pain, shortness of breath, abdominal pain, decreased appetite, nausea, vomiting, extremity weakness/numbness/tingling. PHYSICAL EXAM: Vital Signs: Date Time Temp Pulse Resp B/P (MAP) Pulse Ox O2 Delivery O2 Flow Rate FiO2 04/06/17 19:13 36.8 58 20 106/72 100 04/06/17 18:35 36.8 58 20 106/72 100 Room Air .Skin: Warm, dry and pink. Abscess on right upper arm appears to be healing well. There is minimal erythema around the incision site. After the packing was removed a small amount of purulent drainage was easily drained but no additional pus was expressed. This area continues to be mildly tender and slightly elevated off the skin. There is no lymphangitis. Abscess on her right lower leg appears to be well hearing. Once again there is minimal erythema around incision site. After the packing was removed a small amount of purulent drainage was easily drained but no additional pus was expressed. There is still mild elevation of the skin that is indurated but there is no fluctuance. No lymphangitis. ED COURSE: Patient is assessed as noted above. Packing was removed from both abscesses. Small bandage was placed over each wound to collect any additional drainage. Patient was educated about today's findings and instructed on her treatment plan ; she verbalizes understanding and agreement with this plan. DISPOSITION: Patient discharged home in stable condition accompanied by male friend; prior to departure she was reassessed and subjectively reported she was feeling better and was pain-free.. CLINICAL IMPRESSION: Abscess recheck. Packing removal. Well healing abscess. PLAN: Patient was encouraged to continue her clindamycin as prescribed until complete. Patient was encouraged to continue her other medications as prescribed. Patient was encouraged to continue to watch her areas for worsening infection. Patient is encouraged to follow-up with PCP at the end of the her antibiotics for recheck. Patient was encouraged return ED for worsening signs of infection, uncontrolled pain or any new/concerning symptoms.
== END 2017-04-06 19:15 | disposition home or self-care (01) ==
LOC: C.EDB 18:15 → C.EDD 19:15
DX: Z09 Encounter for follow-up examination after completed treatment for conditions other than malignant neoplasm (principal); L02.415 Cutaneous abscess of right lower limb; L02.413 Cutaneous abscess of right upper limb

== ENCOUNTER 2017-06-29 18:52 | Emergency (ER) | payer OTHER ==
[~2017-06-29] VITALS: Ht 157.5 cm; Wt 54.6 kg
[~2017-06-29 18:52] MED LIST changes: -CLC/300 PO
[2017-06-29 18:59] VITALS: TEMP 37.2; Ht 157.5 cm; Wt 54.6 kg
[2017-06-29] MEDS ORDERED: SERT50TA PO (20:08)
[2017-06-29] MEDS ORDERED: GABA-112 PO (20:09)
[2017-06-29] MEDS ORDERED: MULT-506 PO (20:10)
[2017-06-29] MEDS ORDERED: SODIUM CHLORIDE 0.9% 1000ML 1,000 ML IV STA (20:15)
[2017-06-29 21:04] LABS: URINE APPEARANCE TURBID (CLEAR); URINE BILIRUBIN NEG (NEG); URINE COLOR DK YELLOW; URINE EPITHELIAL CELL AUTO >30 /lpf (0-5); URINE NITRITE POS (NEG); URINE SPECIFIC GRAVITY 1.023 (1.000-1.030); UROBILINOGEN NEG (NEG); ZZUR CULT IF INDIC CLEAN CATCH YES
[2017-06-29 21:07] LABS: MANUAL MICROSCOPIC REQUIRED? NO; REVIEW REQ? YES
--- NOTE | 2017-06-29 21:44 | DIAGNOSTIC IMAGING REPORT ---
CHEST ONE VIEW PORTABLE HISTORY: 32 years-old Female fever acute fever with syncope COMPARISON: Chest radiograph 04/27/2015 TECHNIQUE: Portable upright AP view of the chest FINDINGS: Cardiomediastinal and hilar silhouettes are within normal limits. No pneumothorax, pleural effusion, focal airspace consolidation or overt pulmonary edema. Bones are grossly intact. Upper abdominal structures are unremarkable. IMPRESSION: No acute cardiopulmonary process. The above report was generated using voice recognition software. It may contain grammatical, syntax or spelling errors. Electronically signed by: Lux Carmona M.D. 06/29/2017 9:42 PM Dictated Date/Time: 06/29/2017 9:41 PM
[2017-06-29 21:49] LABS: PREG INTERNAL NEGATIVE QC NEG CLEAR BACKGROUND; PREG INTERNAL POSITIVE QC POS CONTROL LINE
[2017-06-29] MEDS ORDERED: CEPHALEXIN MONOHYDRATE 250 MG CAP PO ONE (22:00)
--- NOTE | 2017-06-29 22:09 | DIAGNOSTIC IMAGING REPORT ---
HEAD WITHOUT CONTRAST (CT) CLINICAL HISTORY: 32 years-old Female with head injury, headache. Acute headache. Initial exam. TECHNIQUE: Multiple axial CT images of the head were obtained without contrast. A dose lowering technique was utilized adhering to the principles of ALARA. CT DOSE: 537.48 mGy.cm COMPARISON: CT head 10/08/2008. FINDINGS: No acute intracranial hemorrhage, midline shift, mass, large territorial ischemia or abnormal extra-axial collection. The calvarium is intact. The paranasal sinuses, mastoid air cells, and middle ear cavities are clear. IMPRESSION: No acute intracranial abnormality. The above report was generated using voice recognition software. It may contain grammatical, syntax or spelling errors. Electronically signed by: Lux Carmona M.D. 06/29/2017 10:08 PM Dictated Date/Time: 06/29/2017 10:06 PM
[2017-06-29] MEDS ORDERED: IBUPROFEN 800 MG TAB PO STA (22:11)
[2017-06-29] MEDS ORDERED: ONDANSETRON 4MG OD TAB PO ONE (22:15)
--- NOTE | 2017-06-29 22:34 | EMERGENCY ROOM VISIT NOTE ---
History Report prepared by Tawanda: Niya Sanford Under the Supervision of: Dr. Marti Shoemaker D.O. First contact with patient: 19:34 Chief Complaint: FEVER Stated Complaint: FEVER, HEADACHES, PASSED OUT AND HIT HEAD History of Present Illness The patient is a 32 year old female who presents to the Emergency Room with complaints of a persistent fever that started 3 days ago. The patient rates her discomfort a 3/10 in severity. The patient notes that her fever has persistently been around 103. She states that she has been taking ibuprofen but that has only reduced her fever to 99. The patient states that she has also been experiencing severe headaches that came with her fever. She notes that she has a history of headaches but the symptoms she is experiencing now are worse than her previous headaches. The patient states that she has also been experiencing vertigo for the last couple of weeks. She describes the vertigo as "head spinning" but she denies having any vision changes. She has noticed that her balance has been off since the vertigo symptoms started. She notes that the vertigo started before the onset of her fever. The patient notes that she has also been experiencing a sore throat and body aches. The patient states that while eating dinner last night, she passed out, fell off her chair, and hit her head on the ground. She notes that everything went black prior to the episode and she does not recall the episode happening. The patient's father states that prior to the episode she looked "very tired and out of it". She also reports that she previously had a staph infection in her lungs. She notes that her primary doctor recently increased her Suboxone prescription dosage this morning. The patient states that while she was in care home, her hearing was "muffled". She contacted the medical unit there and they suspected she had an ear infection. She notes that she has been maintaining a healthy diet but she feels like she is always hungry and is unable to gain weight. The patient denies having any urine changes. The patient has a history of low blood pressure. Source of History: patient Onset: 3 days ago Position: other (global) Symptom Intensity: 11/21 Timing: other (persistent) Associated Symptoms: + LOC, + fevers, + headache, + sorethroat, No urinary symptoms Note: The patient is also experiencing body aches. Review of Systems See HPI for pertinent positives & negatives. A total of 10 systems reviewed and were otherwise negative. Past Medical & Surgical Medical Problems: (1) ruptured membranes 31 weeks 1day Surgical Problems: (1) H/O hernia repair (2) H/O: section Family History No significant family history Social History Smoking Status: Current Some Day Smoker Alcohol Use: occasionally Drug Use: none Marital Status: single Housing Status: lives alone Occupation Status: employed Current/Historical Medications Scheduled Buprenorphine Hcl-Naloxone Hcl (Suboxone 8-2 Mg), 8 MG SL TID Cephalexin (Keflex), 1 CAP PO BID Gabapentin (Neurontin), 100 MG PO TID Multivitamin (Multivitamin), 1 TAB PO DAILY Sertraline (Zoloft), 50 MG PO DAILY Scheduled PRN Acetaminophen (Tylenol), 1,000 MG PO Q6H PRN for Pain Clonazepam (Klonopin), 1 MG PO BID PRN for Anxiety Allergies Coded Allergies: Morphine (Unverified Allergy, Severe, RASH, 04/04/17) Sulfamethoxazole w/Trimethoprim (Verified Allergy, Intermediate, HIVES, ) Codeine (Verified Allergy, Unknown, HIVES, 04/04/17) Levofloxacin (Verified Allergy, Unknown, HIVES, 04/04/17) Nitrofurantoin (Verified Allergy, Unknown, 04/04/17) Penicillins (Verified Allergy, Unknown, AMOXICILLIN, 04/04/17) Quinolones (Verified Adverse Reaction, Intermediate, NEURO SIDE EFFECTS, ) Physical Exam Vital Signs Date Time Temp Pulse Resp B/P (MAP) Pulse Ox O2 Delivery O2 Flow Rate FiO2 06/29/17 23:26 100 20 102/58 97 06/29/17 22:01 91 20 100/63 96 Room Air 06/29/17 20:48 108 18 98/63 97 Room Air 06/29/17 18:59 37.2 128 20 108/72 95 Room Air Physical Exam GENERAL: alert, well appearing, well nourished, no distress, non-toxic EYE EXAM: normal conjunctiva, PERRL and EOM's grossly intact OROPHARYNX: no exudate, no erythema, lips, buccal mucosa, and tongue normal and mucous membranes are moist NECK: supple, no nuchal rigidity, no adenopathy, non-tender LUNGS: Clear to auscultation. Normal chest wall mechanics, no w/r/r HEART: no murmurs, S1 normal and S2 normal ABDOMEN: abdomen soft, non-tender, normo-active bowel sounds, no masses, no rebound or guarding. BACK: Back is symmetrical on inspection and there is no deformity, no midline tenderness, no CVA tenderness. SKIN: no rashes and no bruising UPPER EXTREMITIES: upper extremities are grossly normal, Nml ROM, nml pulses. LOWER EXTREMITIES: No pitting edema. Nml ROM, nml pulses. NEURO EXAM: Normal sensorium, cranial nerves II-XII [grossly] intact, normal speech, no [gross] weakness of arms, no [gross] weakness of legs. Gross sensation intact.] Medical Decision & Procedures ER Provider Diagnostic Interpretation: Radiology results have been interpreted by the radiologist and reviewed by me. HEAD WITHOUT CONTRAST (CT) CLINICAL HISTORY: 32 years-old Female with head injury, headache. Acute headache. Initial exam. TECHNIQUE: Multiple axial CT images of the head were obtained without contrast. A dose lowering technique was utilized adhering to the principles of ALARA. CT DOSE: 537.48 mGy.cm COMPARISON: CT head 10/08/2008. FINDINGS: No acute intracranial hemorrhage, midline shift, mass, large territorial ischemia or abnormal extra-axial collection. The calvarium is intact. The paranasal sinuses, mastoid air cells, and middle ear cavities are clear. IMPRESSION: No acute intracranial abnormality. The above report was generated using voice recognition software. It may contain grammatical, syntax or spelling errors. Electronically signed by: Lux Carmona M.D. 06/29/2017 10:08 PM Dictated Date/Time: 06/29/2017 10:06 PM CHEST ONE VIEW PORTABLE HISTORY: 32 years-old Female fever acute fever with syncope COMPARISON: Chest radiograph 04/27/2015 TECHNIQUE: Portable upright AP view of the chest FINDINGS: Cardiomediastinal and hilar silhouettes are within normal limits. No pneumothorax, pleural effusion, focal airspace consolidation or overt pulmonary edema. Bones are grossly intact. Upper abdominal structures are unremarkable. IMPRESSION: No acute cardiopulmonary process. The above report was generated using voice recognition software. It may contain grammatical, syntax or spelling errors. Electronically signed by: Lux Carmona M.D. 06/29/2017 9:42 PM Dictated Date/Time: 06/29/2017 9:41 PM Laboratory Results Test 06/29/17 20:29 06/29/17 20:40 Influenza Type A Antigen Neg for Influ A (NEG) Influenza Type B Antigen Neg for Influ B (NEG) Urine Color DK YELLOW Urine Appearance TURBID (CLEAR) Urine pH 5.0 (4.5-7.5) Urine Specific [place] 1.023 (1.000-1.030) Urine Protein 1+ (NEG) Urine Glucose (UA) NEG (NEG) Urine Ketones TRACE (NEG) Urine Occult Blood TRACE (NEG) Urine Nitrite POS (NEG) Urine Bilirubin NEG (NEG) Urine Urobilinogen NEG (NEG) Urine Leukocyte Esterase MODERATE (NEG) Urine WBC (Auto) >30 /hpf (0-5) Urine RBC (Auto) 0-4 /hpf (0-4) Urine Hyaline Casts (Auto) 0 /lpf (0-5) Urine Epithelial Cells (Auto) >30 /lpf (0-5) Urine Bacteria (Auto) 4+ (NEG) Urine Pathogenic Casts /lpf (0) Urine Yeast (Auto) (NONE PRSENT) Urine Test NEG (NEG) Medications Administered Medications (Trade) Dose Ordered Sig/Kleber Route Start Time Stop Time Status Last Admin Dose Admin Cephalexin Monohydrate (Keflex Cap) 500 mg NOW ONCE PO 06/29/17 22:00 06/29/17 22:01 DC 06/29/17 22:29 500 MG Ondansetron HCl (Zofran Odt) 4 mg ONE ONCE PO 06/29/17 22:15 06/29/17 22:16 DC 06/29/17 22:29 4 MG Ibuprofen (Motrin Tab) 800 mg NOW STAT PO 06/29/17 22:11 06/29/17 22:13 DC 06/29/17 22:29 800 MG ECG Indication: weakness Rate (beats per minute): 102 Rhythm: sinus tachycardia Findings: no acute ischemic change, other (normal axis, normal intervals, isolated inverted T wave in lead V3) ED Course 1933: The patient was evaluated in room C6. A complete history and physical exam was performed. 2015: Sodium Chloride 1000 ml @ 999 mls/hr IV. 0: Keflex Cap 500 mg PO. 2210: Motrin Tab 800 mg PO. 2214: Zofran Odt 4 mg PO. 2206: Upon reevaluation, the patient is feeling better. I discussed the findings and the treatment plan with the patient. She verbalizes agreement and understanding. She was discharged home. Medical Decision DDx: med reaction, med noncompliance, cva/ICH, infection, electrolyte abnormality, dysrhythmia, dehydration Due to patient's prior history of IV drug abuse, difficulty obtaining labs. Patient family refused any more attempts at blood draws. Discussed with patient her results from the additional testing. Patient started on antibiotics for likely urinary tract infection. Prior cultures reviewed and typically patient grows out Escherichia coli that is pansensitive with few exceptions. I do not suspect pyelonephritis clinically. Discussed with patient limitations given lack of additional lab values. Discussed need for close follow-up, discussed symptoms to watch and return for, she verbalized understanding was agreeable with plan. Patient's vital signs stable throughout , doubt bacteremia/sepsis. Patient states blood pressure typically runs low and several values reversing here are normal for her. Patient was tolerating by mouth at bedside, encouraged patient to maintain adequate hydration. Patient had no vomiting no other GI symptoms. Discussed with patient concern for increased fatigue and syncopal event versus falling asleep likely due to change in her medications. Advised discussion with her family doctor to potentially decrease the dose. I do not suspect ACS, dysrhythmia, PE, CVA, dissection, occult GI bleed, perforation as contributing events. I do not suspect any additional occult traumatic injury. Head Trauma GCS Score: 15 Medication Reconcilliation Current Medication List: was personally reviewed by me Blood Pressure Screening Patient's blood pressure: Normal blood pressure Impression Primary Impression: Fever Additional Impressions: UTI (urinary tract infection) Syncope Scribe Attestation The scribe's documentation has been prepared under my direction and personally reviewed by me in its entirety. I confirm that the note above accurately reflects all work, treatment, procedures, and medical decision making performed by me. Departure Information Dispostion Home / Self-Care Prescriptions Cephalexin (KEFLEX) 500 Mg Cap 1 CAP PO BID for 7 Days, #14 CAP Prov: Marti Shoemaker DO 06/29/17 Referrals Mario Hercules III, M.D. (PCP) Patient Instructions My [facility] Additional Instructions Please continue drinking plenty of fluids. Please take the antibiotic as prescribed. If you have any worsening symptoms or new concerns, please return the emergency room. Because we were unable to complete lab testing today, your evaluation is incomplete as we do not know other functions. Given your history of urinary tract infections and kidney infections, you're at higher risk. Please take your medications only as prescribed and discussed with your doctor your buprenorphine perhaps decreasing back to your prior dose. You are welcome to return to the ER at any time. Problem Qualifiers Primary Impression: Fever Fever type: unspecified Qualified Codes: R50.9 - Fever, unspecified Additional Impressions: UTI (urinary tract infection) Urinary tract infection type: acute cystitis Hematuria presence: with hematuria Qualified Codes: N30.01 - Acute cystitis with hematuria Syncope Syncope type: unspecified Qualified Codes: R55 - Syncope and collapse
[2017-06-29] MEDS ORDERED: CEPH-571 PO (22:55)
[2017-06-29 23:26] VITALS: BP 102/58; PULSE 100; O2SAT 97
--- NOTE | 2017-07-01 13:53 | Pharmacy Progress Note ---
ED Pharmacist Culture FollowUp Date of Service: Jul 01, 2017. Patient was sent home with a prescription for cephalexin, which should cover the E. coli growing from the patient's urine culture, based on reported sensitivity to cefazolin.
== END 2017-06-29 23:30 | disposition home or self-care (01) ==
LOC: C.EDB 18:53 → C.EDC 23:30
DX: R50.9 Fever, unspecified (principal); N30.01 Acute cystitis with hematuria; R55 Syncope and collapse; R51 Headache; J02.9 Acute pharyngitis, unspecified; F17.200 Nicotine dependence, unspecified, uncomplicated

== ENCOUNTER 2017-09-10 07:02 | Emergency (ER) | payer OTHER ==
[~2017-09-10] VITALS: Ht 157.5 cm; Wt 62.0 kg
[~2017-09-10 07:02] MED LIST changes: -CLON1TAB3 PO; +GABA-112 PO; -IBUP-103 PO; +MULT-506 PO; -SERT-234 PO; +SERT50TA PO; -TIZA4CAP PO
[2017-09-10 07:05] VITALS: TEMP 36.4; Ht 157.5 cm; Wt 62.0 kg
--- NOTE | 2017-09-10 07:40 | EMERGENCY ROOM VISIT NOTE ---
History First contact with patient: 07:07 Chief Complaint: OTHER COMPLAINT Stated Complaint: FACIAL INJURY History of Present Illness The patient is a 32 year old female who presents to the Emergency Room who presents to the emergency department via EMS. The patient was found walking around [employer] in the cold, knocking on doors. The patient had stated she was looking for her friend, who allegedly lives in [place]. The patient did have an abrasion on her chin. On initial evaluation, the patient was was responsive, however did have a significantly altered mental status. She was answering questions inappropriately, and denied any complaints. The patient initially states she was helping her boyfriend moved to a new apartment , then took a break, and a jairon asked if she wanted help. The patient states she then fell in the snow, and cutting her face. After awakening, the patient is less altered, and is making much more sense. She is more oriented, however states she does not recall the episode which brought her to the emergency department. She was unaware of how she got here. The patient denies any drug or alcohol use. She states she did have an appointment yesterday regarding her Suboxone. She states at that time, she asked her provider if she could continue taking Klonopin, and while he did not recommend it, he stated it would be acceptable to finish the prescription she has. She states that she did take a Klonopin last night, which was different than her normal medications. On initial assessment, the patient states it is possible she may be . She provided multiple different doses when asked about her last menstrual period. Throughout the patient's stay, I did speak with her father. The patient's father states that the patient told him someone gave her a Xanax which was not her prescription. He states that up until yesterday, the patient's behavior has been good, and only recently seem to change last evening. The patient denies any headache, dizziness, nausea, vomiting, abdominal pain, diarrhea, paresthesias, confusion, altered level of consciousness, or other associated symptoms. She states she does have a psychiatric history, and due to past traumatic events, often has difficulty processing events. She states it is normal for her to go somewhere and be unaware of it. She states it is normal for her to be unaware of her surroundings and things that happened to her. She states it takes a while for her body to process these events. Review of Systems A complete 10 point review of systems was reviewed with the patient with pertinent positives and negatives as per history of present illness. All else were negative. Past Medical/Surgical History Medical Problems: (1) ruptured membranes 31 weeks 1day Surgical Problems: (1) H/O hernia repair (2) H/O: section Family History No significant family history Social History Smoking Status: Current Every Day Smoker Alcohol Use: occasionally Drug Use: none Marital Status: single Housing Status: lives alone Occupation Status: employed Current/Historical Medications Scheduled Alprazolam (Xanax), Unknown Dose PO DAILY Buprenorphine Hcl-Naloxone Hcl (Suboxone 8-2 Mg), 8 MG SL TID Bupropion (Wellbutrin Sr), 150 MG PO QAM Haloperidol (Haldol), 5 MG PO QAM Haloperidol (Haldol), 10 MG PO HS Scheduled PRN Benztropine Mesylate (Cogentin), 1 MG PO BID PRN for UNDECIDED Clonazepam (Klonopin), 1 MG PO BID PRN for Anxiety Physical Exam Vital Signs Date Time Temp Pulse Resp B/P (MAP) Pulse Ox O2 Delivery O2 Flow Rate FiO2 09/10/17 14:55 125 20 104/71 98 Room Air 09/10/17 14:02 100 18 99/68 100 Room Air 09/10/17 12:08 98 18 95/73 100 Room Air 09/10/17 10:13 86 18 119/80 98 Room Air 09/10/17 08:47 90 16 129/91 98 Room Air 09/10/17 07:05 36.4 99 16 106/88 98 Room Air Physical Exam VITALS: Vitals are noted on the nurse's note and reviewed by myself. Vital signs stable. GENERAL: This is a 32-year-old white female, in no acute distress, nondiaphoretic, well-developed well-nourished. SKIN: There is a superficial abrasion on the chin. This is losing, however not bloody. The skin was without rashes, erythema, edema, or bruising. There is no tenting of the skin. Capillary reflex less than 2 seconds. HEAD: Normocephalic atraumatic. EARS: External auditory canals clear, tympanic membranes pearly justice without erythema or effusion bilaterally. EYES: Pupils equal round and reactive to light and accommodation. Conjunctivae without injection, sclerae without icterus. Extraocular movements intact. NOSE: Patent, turbinates without inflammation or discharge. No sinus tenderness. MOUTH: Mucous membranes moist. Tonsils are not enlarged. Pharynx without erythema or exudate. Uvula midline. Airway patent. Tongue does not deviate. NECK: Supple without nuchal rigidity. No lymphadenopathy. No thyromegaly. Cervical spine is nontender. No JVD. HEART: Regular rate and rhythm without murmurs gallops or rubs. LUNGS: Clear to auscultation bilaterally without wheezes, rales or rhonchi. No dullness to percussion. No retractions or accessory muscle use. ABDOMEN: Positive bowel sounds x 4. Normal tympanic percussion. Firm, nontender, without masses or organomegaly. Arriaga sign negative. No guarding or rebound tenderness. MUSCULOSKELETAL: No muscle atrophy, erythema, or edema noted. Full range of motion without joint tenderness in all extremities. No tenderness to palpation. Normal gait. Strength 5/5 throughout. NEURO: Patient was alert and oriented to person place and time. Normal sensation to light and sharp touch. Deep tendon reflexes 2+ throughout. No focal neurological deficits. Medical Decision & Procedures ER Provider Diagnostic Interpretation: CBC is without leukocytosis, thrombocytopenia. The patient was mildly anemic. CMP was without significant abnormalities. No significant electrolyte, renal, or hepatic abnormalities. LFTs normal. Lipase normal. Urinalysis did not reveal signs of infection. The patient's urine drug screen was positive for benzodiazepines and MDMA. The patient does admit to taking clonazepam last night. She states she did not use any illicit drugs. The library circulation clerk did report that it is possible for patient on Suboxone to test positive for MDMA. CHEST ONE VIEW PORTABLE CLINICAL HISTORY: Altered mental status. COMPARISON STUDY: Chest radiograph June 29, 2017. FINDINGS: Lung volumes are normal. No pneumothorax or pleural effusion is noted. There is no consolidation to suggest pneumonia. Pulmonary vascularity is normal. Cardiomediastinal silhouette is normal. The appearance of the chest is unchanged. IMPRESSION: No acute cardiopulmonary findings. Electronically signed by: Ronen Arias M.D. 09/10/2017 7:52 AM Dictated Date/Time: 09/10/2017 7:52 AM Laboratory Results 09/10/17 08:30 Red Blood Count 4.10, Mean Corpuscular Volume 80.7, Mean Corpuscular Hemoglobin 27.1, Mean Corpuscular Hemoglobin Concent 33.5, Mean Platelet Volume 10.6, Neutrophils (%) (Auto) 76.4, Lymphocytes (%) (Auto) 19.7, Monocytes (%) (Auto) 3.5, Eosinophils (%) (Auto) 0.2, Basophils (%) (Auto) 0.1, Neutrophils # (Auto) 6.19, Lymphocytes # (Auto) 1.60, Monocytes # (Auto) 0.28, Eosinophils # (Auto) 0.02, Basophils # (Auto) 0.01 09/10/17 08:30 Test 09/10/17 07:37 09/10/17 08:30 Urine Color YELLOW Urine Appearance CLEAR (CLEAR) Urine pH 6.0 (4.5-7.5) Urine Specific [place] 1.022 (1.000-1.030) Urine Protein NEG (NEG) Urine Glucose (UA) NEG (NEG) Urine Ketones NEG (NEG) Urine Occult Blood NEG (NEG) Urine Nitrite NEG (NEG) Urine Bilirubin NEG (NEG) Urine Urobilinogen NEG (NEG) Urine Leukocyte Esterase NEG (NEG) Urine WBC (Auto) 1-5 /hpf (0-5) Urine RBC (Auto) 0-4 /hpf (0-4) Urine Hyaline Casts (Auto) 0 /lpf (0-5) Urine Epithelial Cells (Auto) 5-10 /lpf (0-5) Urine Bacteria (Auto) NEG (NEG) Urine Opiates Screen NEG (NEG) Urine Methadone, Qualitative NEG (NEG) Urine Barbiturates NEG (NEG) Urine Phencyclidine (PCP) Level NEG (NEG) Ur Amphetamine/Methamphetamine NEG (NEG) MDMA (Ecstasy) Screen POS (NEG) Urine Benzodiazepines Screen POS (NEG) Urine Cocaine Metabolite NEG (NEG) Urine Marijuana (THC) NEG (NEG) White Blood Count 8.11 K/uL (4.8-10.8) Red Blood Count 4.10 M/uL (4.2-5.4) Hemoglobin 11.1 g/dL (12.0-16.0) Hematocrit 33.1 % (37-47) Mean Corpuscular Volume 80.7 fL (80-100) Mean Corpuscular Hemoglobin 27.1 pg (25-34) Mean Corpuscular Hemoglobin Concent 33.5 g/dl (32-36) Platelet Count 197 K/uL (130-400) Mean Platelet Volume 10.6 fL (7.4-10.4) Neutrophils (%) (Auto) 76.4 % Lymphocytes (%) (Auto) 19.7 % Monocytes (%) (Auto) 3.5 % Eosinophils (%) (Auto) 0.2 % Basophils (%) (Auto) 0.1 % Neutrophils # (Auto) 6.19 K/uL (1.4-6.5) Lymphocytes # (Auto) 1.60 K/uL (1.2-3.4) Monocytes # (Auto) 0.28 K/uL (0.11-0.59) Eosinophils # (Auto) 0.02 K/uL (0-0.5) Basophils # (Auto) 0.01 K/uL (0-0.2) RDW Standard Deviation 42.8 fL (36.4-46.3) RDW Coefficient of Variation 14.5 % (11.5-14.5) Immature Granulocyte % (Auto) 0.1 % Immature Granulocyte # (Auto) 0.01 K/uL (0.00-0.02) Anion Gap 8.0 mmol/L (3-11) Est Creatinine Clear Calc Drug Dose 110.0 ml/min Estimated GFR () 136.6 Estimated GFR (Non- 117.9 BUN/Creatinine Ratio 32.5 (10-20) Calcium Level 8.6 mg/dl (8.5-10.1) Total Bilirubin 0.2 mg/dl (0.2-1) Aspartate Amino Transf (AST/SGOT) 18 U/L (15-37) Alanine Aminotransferase (ALT/SGPT) 16 U/L (12-78) Alkaline Phosphatase 106 U/L (45-117) Troponin I < 0.015 ng/ml (0-0.045) Total Protein 8.1 gm/dl (6.4-8.2) Albumin 3.8 gm/dl (3.4-5.0) Globulin 4.3 gm/dl (2.5-4.0) Albumin/Globulin Ratio 0.9 (0.9-2) Lipase 87 U/L (73-393) Salicylates Level 2.6 mg/dl (2.8-20) Acetaminophen Level < 2 ug/ml (10-30) Ethyl Alcohol mg/dL < 3.0 mg/dl (0-3) ECG Indication: altered mental status Rate (beats per minute): 87 Rhythm: normal sinus Findings: no acute ischemic change, no ectopy Comparison ECG Date: 06/29/17 Change: no significant change ED Course The patient was seen and as above. Initial assessment performed. The patient was very uncooperative, and was not answering questions appropriately. She does not appear to have any tenderness or discomfort on examination. Nursing staff did have difficulty obtaining an IV. They were unsuccessful. They were able to draw labs. I did discuss the case with Dr. Saha. The patient was straight cathed to obtain a urine, as she was uncooperative and unwilling to provide a clean catch urine sample for us. At this time, the patient states she would like to leave and continues to walk into the hallway. Her father is here, and states that he is willing to take her home. The patient did fall asleep. I spoke with the patient's father, and he states that the patient has been fine up until last night. He is uncertain exactly what happened. He states he didn't know anything was going on until the police knocked on his store this morning. He denies to me that I expect to allow the patient to sleep until she awakens, and I can obtain a reliable history. The patient's father is in agreement. He did ask if he needed to stay. I advised him that he could leave and I would call him when the patient is awake. The patient did awaken. Her history was slightly improved, however she states she is uncertain what happened last night. She states she told her father she would be leaving for a little while to visit friends. She states she is uncertain how she obtained the abrasion on her face, but believes she fell in the snow. She denies any drug use. The patient is more oriented at this time, however is still slow to respond. I contacted the patient's father, eKith, by phone ([phone]). He states he was cleaning out the patient's bedroom, and noticed what appears to be a suicide note left on the desk. He states he has never seen it before. The patient's father is in route to the hospital with the note. He states he did not find any illicit drugs or other substances. At this point, I did discuss the case again with Dr. Saha. He recommended psychiatric case management involvement. I did discuss the case with the psychiatric registered nurse hh case manager. Keith arrived to the emergency department, and she was invited to speak with myself and the registered nurse hh case manager as well. The registered nurse hh case manager did assess the patient, and did not feel that the patient is suicidal or homicidal. The patient told her that the note was not hers, and that it was given to her by a friend at the [facility]. The patient does regularly see her psychiatrist, and attends group meetings. She did miss a meeting today because she was here in the emergency department. The patient's father plans on becoming more involved especially with the patient's prescriptions. He will attend the patient's Psychiatry meeting. I have reassessed the patient. She is upright, getting dressed, and states she is feeling better. She is answering questions more appropriately at this time. She does ask for her medications including Suboxone, and I advised her that we were working on discharging her and she could take her medications at home. I did advise against taking clonazepam, as I suspect could be contributing to her symptoms and erratic behavior earlier. The patient is in agreement. She will follow-up with her psychiatrist regarding ongoing medications. Discharge instructions were reviewed. The patient was discharged home in good condition. Medical Decision Etiologies such as mood disorder, toxicologic, infection, hypoglycemia, electrolyte abnormalities, cardiac sources, intracerebral event, neurologic, as well as others were entertained. The patient presented here today with very erratic behavior. Though she was outside in the 4 degree weather, she was not hypothermic. She was answering questions inappropriately on initial examination, advising me that it was the year 2016, Kendall Hsieh was president, it was 7:30 in the evening, and that we just celebrated . The patient was having difficulty focusing and was not answering most questions consistently or appropriately. I was concerned for drug overdose, due to the patient's symptoms and history. Her urine tox screen was positive for MDMA as well as Benzodiazepines. The patient does have a prescription for Clonazepam, however, she had not been taking it consistently. She spoke with her PCP, Dr. Anderson in [place] yesterday at her appointment regarding Suboxone, regarding anxiety medication, and he advised her that she could take her Clonazepam prescription until she is able to follow-up with her psychiatrist for a better prescription. She did take this medication last night. I suspect this could be contributing to her symptoms, as after she was able to sleep, her symptoms improved and she began acting appropriately. The patient was screened by psych due to the note which was found in her bedroom. This was not hers, but was from a friend. Psychiatric case management was not concerned for SI/HI. The patient's father feels comfortable observing the patient at home until she can see her psychiatrist. I do feel that this is reasonable, and they were encouraged to return to the ED for any concerning signs/symptoms. The patient was tachycardic prior to discharge, but had been stable throughout her stay. I suspect the tachycardia is related to some slight withdrawal from the patient's symptoms. Medication Reconcilliation Current Medication List: was personally reviewed by me Blood Pressure Screening Patient's blood pressure: Normal blood pressure Impression Primary Impression: Psychiatric problem Additional Impression: Altered mental status Departure Information Dispostion Home / Self-Care Condition GOOD Referrals Mario Hercules III, M.D. (PCP) NIA ANDERSON Michael M.D. Patient Instructions ED Psychosis, My [facility] Additional Instructions You were seen in the Emergency Department for an altered mental status with possible psychosis. Evaluation in the ED did not reveal any obvious findings or causes of your symptoms. I suspect your symptoms could be related to Clonazepam usage, as that has been the only real recent medication change. Please do not take this medication unless recommended by your psychiatrist. You are being discharged under the care of your father, Keith. Please follow his guidance regarding your medications and activity for safety. I do recommend that he accompanies you to your psychiatry appointments, as he is currently managing your medications. Do not take any medications which are not prescribed to you. You should not be using alcohol while on psychiatric medications. Please always keep all follow-ups regarding your psychiatric care. There is an open wound on your chin. Keep the wound clean with soap and water, but do not scrub over it. Follow-up with your PCP in 2-3 days for re-check, as you were outside in the cold for an extensive period of time. Work Instructions Return To Work: 1 day Problem Qualifiers Additional Impression: Altered mental status Altered mental status type: disorientation Qualified Codes: R41.0 - Disorientation, unspecified
--- NOTE | 2017-09-10 07:54 | DIAGNOSTIC IMAGING REPORT ---
CHEST ONE VIEW PORTABLE CLINICAL HISTORY: Altered mental status. COMPARISON STUDY: Chest radiograph June 29, 2017. FINDINGS: Lung volumes are normal. No pneumothorax or pleural effusion is noted. There is no consolidation to suggest pneumonia. Pulmonary vascularity is normal. Cardiomediastinal silhouette is normal. The appearance of the chest is unchanged. IMPRESSION: No acute cardiopulmonary findings. Electronically signed by: Ronen Arias M.D. 09/10/2017 7:52 AM Dictated Date/Time: 09/10/2017 7:52 AM
[2017-09-10] MEDS ORDERED: HALO10TA17 PO (08:35)
[2017-09-10] MEDS ORDERED: BUPR-79 PO (08:35)
[2017-09-10] MEDS ORDERED: BENZ-89 PO (08:35)
[2017-09-10] MEDS ORDERED: HALO5TAB PO (08:35)
[2017-09-10 08:49] LABS: BASO % 0.1 %; BASO ABS # 0.01 K/uL (0-0.2); EOS % 0.2 %; EOS ABS # 0.02 K/uL (0-0.5); HEMATOCRIT 33.1 % (37-47); HEMOGLOBIN 11.1 g/dL (12.0-16.0); IG# 0.01 K/uL (0.00-0.02); LYMPH % 19.7 %; MEAN CELL VOLUME 80.7 fL (80-100); MEAN CORPUSCULAR HEMOGLOBIN 27.1 pg (25-34); MEAN CORPUSCULAR HGB CONC 33.5 g/dl (32-36); MEAN PLATELET VOLUME 10.6 fL (7.4-10.4); MONO % 3.5 %; MONO ABS # 0.28 K/uL (0.11-0.59); NEUT % 76.4 %; NEUT ABS # 6.19 K/uL (1.4-6.5); PLATELET COUNT 197 K/uL (130-400); RED CELL DISTRIBUTION WIDTH CV 14.5 % (11.5-14.5); RED CELL DISTRIBUTION WIDTH SD 42.8 fL (36.4-46.3); WHITE BLOOD COUNT 8.11 K/uL (4.8-10.8)
[2017-09-10 09:08] LABS: ALBUMIN 3.8 gm/dl (3.4-5.0); ALT/SGPT 16 U/L (12-78); AST/SGOT 18 U/L (15-37); BLOOD UREA NITROGEN 21 mg/dl (7-18); CALCIUM 8.6 mg/dl (8.5-10.1); CARBON DIOXIDE 23 mmol/L (21-32); CREATININE 0.63 mg/dl (0.60-1.20); GLUCOSE 98 mg/dl (70-99); LIPASE 87 U/L (73-393); POTASSIUM 3.9 mmol/L (3.5-5.1); SODIUM 137 mmol/L (136-145)
[2017-09-10 09:13] LABS: ALKALINE PHOSPHATASE 106 U/L (45-117); TOTAL PROTEIN 8.1 gm/dl (6.4-8.2)
[2017-09-10] MEDS ORDERED: ALPR-411 PO (09:19)
[2017-09-10 14:55] VITALS: BP 104/71; PULSE 125; O2SAT 98
[2018-04-05] MEDS ORDERED: BUPR8SUB19 SL (15:07)
[2018-04-05] MEDS ORDERED: CLON1TAB10 PO (15:35)
[2018-04-05] MEDS ORDERED: METR-163 PO (22:12)
[2018-04-05] MEDS ORDERED: HYDR2.5C37 TOP (22:12)
[2018-04-05] MEDS ORDERED: ONDA4TAB10 SL (22:12)
[2018-04-05] MEDS ORDERED: DOXY100C PO (22:12)
== END 2017-09-10 14:57 | disposition home or self-care (01) ==
LOC: EDBD 07:02 → C.EDA 07:03
DX: R41.82 Altered mental status, unspecified (principal); F17.200 Nicotine dependence, unspecified, uncomplicated; Z79.899 Other long term (current) drug therapy

== ENCOUNTER 2018-01-24 22:42 | Emergency (ER) | payer OTHER ==
[~2018-01-24] VITALS: Ht 157.5 cm; Wt 71.0 kg
[~2018-01-24 22:42] MED LIST changes: -ACET-1256 PO; +ALPR-411 PO; +BENZ-89 PO; +BUPR-79 PO; +CLON1TAB3 PO; -GABA-112 PO; +HALO10TA17 PO; +HALO5TAB PO; -MULT-506 PO; -SERT50TA PO
[2018-01-24 22:56] VITALS: TEMP 36.7; Ht 157.5 cm; Wt 71.0 kg
--- NOTE | 2018-01-24 23:44 | EMERGENCY ROOM VISIT NOTE ---
History Report prepared by Tawanda: [place] Under the Supervision of: Dr. Mecca Finley D.O. First contact with patient: 22:59 Chief Complaint: FOOT PAIN Stated Complaint: ABSESS/BOIL ON LEFT SIDE OF FOOT History of Present Illness The patient is a 32 year old female who presents to the Emergency Room with complaints of worsening left foot pain beginning 4 days ago. She rates the pain at a 5/10. The patient reports that she has an abscess on the side of her left foot that she noticed 3-4 days ago. The patient reports having a fever for the last 3 days, but states that she did not have one today as she took Clindamycin. The patient states that she already had the Clindamycin and that she took one dosage yesterday. Per friend, the patient had been walking through the [place] barefoot within the last week. The patient states that she does not like to wear shoes. The patient also states that she picks her skin as a nervous habit, but that she has not been picking at her abscess. The patient denies having infections on the left foot before. She reports a history of schizophrenia, but denies a history of diabetes. The patient denies recent alcohol use. She states that her last menstrual cycle finished last week. Source of History: patient, friend Onset: 4 days ago Position: foot (left) Symptom Intensity: rated at a 5/10 Quality: other (pain) Timing: worsening Associated Symptoms: + fevers Review of Systems See HPI for pertinent positives & negatives. A total of 10 systems reviewed and were otherwise negative. Past Medical & Surgical Medical Problems: (1) ruptured membranes 31 weeks 1day (2) Schizophrenia Surgical Problems: (1) H/O hernia repair (2) H/O: section Family History No significant family history Social History Smoking Status: Never Smoker Alcohol Use: occasionally Drug Use: none Marital Status: single Housing Status: lives alone Occupation Status: employed Current/Historical Medications Scheduled Alprazolam (Xanax), Unknown Dose PO DAILY Buprenorphine Hcl-Naloxone Hcl (Suboxone 8-2 Mg), 8 MG SL TID Bupropion (Wellbutrin Sr), 150 MG PO QAM Clindamycin Hcl (Cleocin), 150 MG PO TID Clindamycin Hcl (Cleocin), 300 MG PO TID Haloperidol (Haldol), 5 MG PO QAM Haloperidol (Haldol), 10 MG PO HS Scheduled PRN Benztropine Mesylate (Cogentin), 1 MG PO BID PRN for UNDECIDED Clonazepam (Klonopin), 1 MG PO BID PRN for Anxiety Allergies Coded Allergies: Morphine (Unverified Allergy, Severe, RASH, 01/24/18) Sulfamethoxazole w/Trimethoprim (Verified Allergy, Intermediate, HIVES, ) Codeine (Verified Allergy, Unknown, HIVES, 01/24/18) Levofloxacin (Verified Allergy, Unknown, HIVES, 01/24/18) Nitrofurantoin (Verified Allergy, Unknown, 01/24/18) Penicillins (Verified Allergy, Unknown, AMOXICILLIN, 01/24/18) Quinolones (Verified Adverse Reaction, Intermediate, NEURO SIDE EFFECTS, ) Physical Exam Vital Signs Date Time Temp Pulse Resp B/P (MAP) Pulse Ox O2 Delivery O2 Flow Rate FiO2 01/25/18 02:57 84 21 123/90 100 01/25/18 01:43 81 19 96 01/25/18 01:38 112/80 01/25/18 01:17 90 96 01/25/18 00:47 82 18 95 01/25/18 00:42 78 18 95 Room Air 01/25/18 00:30 107/71 01/25/18 00:28 80 01/25/18 00:21 108/73 01/24/18 22:56 36.7 88 16 89/62 97 Room Air Physical Exam General: Lethargic HEENT: Head - normocephalic and atraumatic Pupils are equal , round, and reactive to light. Extraocular eye muscles are intact, and sclera are anicteric. Nose - moist nasal mucosa without discharge. Mouth - moist buccal mucosa. Oropharynx is nonerythematous and there is no tonsillar exudate or edema noted. Neck: Supple; no JVD, nuchal rigidity, cervical lymphadenopathy. Heart: Regular rate and rhythm. There is a normal S1 and S2 with no murmurs, clicks, or gallops appreciated. Lungs: Clear to auscultation bilaterally with no wheezes, rales, or rhonchi. Abdomen: Soft. Some diffuse right-sided abdominal pain to palpation. nondistended, with good bowel sounds. There are no palpable pulsatile masses or hepatosplenomegaly. There is no guarding, rigidity, or rebound noted. Extremities: No evidence of cyanosis, clubbing, or edema. There are easily palpable peripheral pulses. Area of abscess with fluctuance and surrounding erythema of the medial aspect of the left great toe. Skin: warm and dry with good turgor and no rashes. Medical Decision & Procedures ER Provider Diagnostic Interpretation: Radiology results as stated below per my review. Chest X-Ray: Unremarkable. No pulmonary infiltrates. No evidence of consolidation. Foot X-Ray: No obvious osteomyelitis. No foreign body identified. Laboratory Results 01/25/18 00:53 Red Blood Count 3.85, Mean Corpuscular Volume 84.2, Mean Corpuscular Hemoglobin 27.5, Mean Corpuscular Hemoglobin Concent 32.7, Mean Platelet Volume 9.3, Neutrophils (%) (Auto) 63.9, Lymphocytes (%) (Auto) 27.9, Monocytes (%) (Auto) 4.8, Eosinophils (%) (Auto) 3.1, Basophils (%) (Auto) 0.1, Neutrophils # (Auto) 5.86, Lymphocytes # (Auto) 2.56, Monocytes # (Auto) 0.44, Eosinophils # (Auto) 0.28, Basophils # (Auto) 0.01 01/25/18 00:53 Test 01/25/18 00:53 01/25/18 01:01 01/25/18 01:30 White Blood Count 9.17 K/uL (4.8-10.8) Red Blood Count 3.85 M/uL (4.2-5.4) Hemoglobin 10.6 g/dL (12.0-16.0) Hematocrit 32.4 % (37-47) Mean Corpuscular Volume 84.2 fL (80-100) Mean Corpuscular Hemoglobin 27.5 pg (25-34) Mean Corpuscular Hemoglobin Concent 32.7 g/dl (32-36) Platelet Count 245 K/uL (130-400) Mean Platelet Volume 9.3 fL (7.4-10.4) Neutrophils (%) (Auto) 63.9 % Lymphocytes (%) (Auto) 27.9 % Monocytes (%) (Auto) 4.8 % Eosinophils (%) (Auto) 3.1 % Basophils (%) (Auto) 0.1 % Neutrophils # (Auto) 5.86 K/uL (1.4-6.5) Lymphocytes # (Auto) 2.56 K/uL (1.2-3.4) Monocytes # (Auto) 0.44 K/uL (0.11-0.59) Eosinophils # (Auto) 0.28 K/uL (0-0.5) Basophils # (Auto) 0.01 K/uL (0-0.2) RDW Standard Deviation 44.3 fL (36.4-46.3) RDW Coefficient of Variation 14.4 % (11.5-14.5) Immature Granulocyte % (Auto) 0.2 % Immature Granulocyte # (Auto) 0.02 K/uL (0.00-0.02) Prothrombin Time 11.2 SECONDS (9.0-12.0) Prothromb Time International Ratio 1.1 (0.9-1.1) Activated Partial Thromboplast Time 28.3 SECONDS (21.0-31.0) Partial Thromboplastin Ratio 1.1 Anion Gap 10.0 mmol/L (3-11) Est Creatinine Clear Calc Drug Dose 98.5 ml/min Estimated GFR () 121.4 Estimated GFR (Non- 104.7 BUN/Creatinine Ratio 6.4 (10-20) Calcium Level 8.2 mg/dl (8.5-10.1) Total Bilirubin 0.3 mg/dl (0.2-1) Aspartate Amino Transf (AST/SGOT) 16 U/L (15-37) Alanine Aminotransferase (ALT/SGPT) 13 U/L (12-78) Alkaline Phosphatase 140 U/L (45-117) Total Protein 7.6 gm/dl (6.4-8.2) Albumin 3.1 gm/dl (3.4-5.0) Globulin 4.5 gm/dl (2.5-4.0) Albumin/Globulin Ratio 0.7 (0.9-2) Bedside Lactic Acid Venous 1.79 mmol/L (0.90-1.70) Urine Color DK YELLOW Urine Appearance ERROR (CLEAR) Urine pH 6.0 (4.5-7.5) Urine Specific [place] 1.017 (1.000-1.030) Urine Protein NEG (NEG) Urine Glucose (UA) NEG (NEG) Urine Ketones NEG (NEG) Urine Occult Blood NEG (NEG) Urine Nitrite NEG (NEG) Urine Bilirubin NEG (NEG) Urine Urobilinogen POS (NEG) Urine Leukocyte Esterase NEG (NEG) Urine WBC (Auto) 5-10 /hpf (0-5) Urine RBC (Auto) 5-10 /hpf (0-4) Urine Hyaline Casts (Auto) 5-10 /lpf (0-5) Urine Epithelial Cells (Auto) >30 /lpf (0-5) Urine Bacteria (Auto) 2+ (NEG) Urine Opiates Screen POS (NEG) Urine Methadone, Qualitative NEG (NEG) Urine Barbiturates NEG (NEG) Urine Phencyclidine (PCP) Level NEG (NEG) Ur Amphetamine/Methamphetamine POS (NEG) MDMA (Ecstasy) Screen POS (NEG) Urine Benzodiazepines Screen POS (NEG) Urine Cocaine Metabolite POS (NEG) Urine Marijuana (THC) POS (NEG) Laboratory results per my review. Medications Administered Medications (Trade) Dose Ordered Sig/Kleber Route Start Time Stop Time Status Last Admin Dose Admin Lorazepam (Ativan Inj) 0.25 mg NOW STAT IV 01/25/18 00:05 01/25/18 00:07 DC 01/25/18 01:32 0.25 MG Clindamycin Phosphate 900 mg/ Dextrose 106 ml @ 100 mls/hr ONE ONCE IV 01/25/18 01:45 01/25/18 02:48 DC 01/25/18 01:54 100 MLS/HR Ketorolac Tromethamine (Toradol Inj) 30 mg NOW STAT IV 01/25/18 02:16 01/25/18 02:17 DC 01/25/18 02:25 30 MG Procedure Medications Administered Ativan Inj IV Clindamycin Phosphate 900 mg/Dextrose IV Toradol Inj IV Incision & Drainage Indication: Abscess. Location: Left foot Verbal consent was obtained after the risks and benefits were explained. A time out was taken and the correct patient and site identified. The skin was prepped with betadine and a sterile field set. The wound was anesthetized with 4ml of 1% lidocaine without epinephrine. The abscess cavity was entered with a number 11 blade and pus was expressed. Copious irrigation was performed using sterile water. The wound was explored for foreign bodies and none found. Debridement was not performed. A culture was taken. Detailed wound care instructions and signs and symptoms of worsening infection reviewed with the patient. No complications and the patient tolerated the procedure well. ED Course 2326: Past medical records reviewed. The patient was evaluated in room C7. A complete history and physical exam was performed. They had significant difficulty obtaining IV access or laboratory studies 0005: Ordered Ativan Inj 0.25 mg IV was ordered 0050: I checked on the patient. They are still unable to get blood work or an IV in. 0137: I checked on the patient. She is willing to go through with the incision and drainage and IV antibiotics. 0145: Ordered Clindamycin Phosphate 900 mg/Dextrose 106 ml @ 100 mls/hr IV. 0216: Ordered Toradol Inj 30 mg IV. 0230: Upon reevaluation, the patient is doing well. I discussed findings and results with her. She verbalized agreement of the treatment plan. She was discharged home. Medical Decision The patient is a 32 year old female who presents to the ED with left foot pain. Differential diagnosis includes foreign body of foot, skin abscess, cellulitis, osteomyelitis, sepsis, and UTI. Lab Results Show: No leukocytosis Hemoglobin 10.6 Lactic acid 1.7 Glucose 146 Normal renal function Urine tox: positive for cocaine, marijuana, opiates, benzos, amphetamine, and MDMA Urine: 2+ bacteria, 5-10 red blood cells and 5-10 white blood cells This is a 32-year-old female patient presents to the emergency department with an obvious abscess over the medial aspect of the left foot. X-ray revealed no evidence of acute osteomyelitis. The patient was afebrile and had no significant leukocytosis and blood work. The patient was leery of having the abscess drained and/or receiving IV antibiotics are being admitted into the hospital. She was finally willing to have me anesthetize and drain this abscess. This was performed and a culture was taken. Patient did receive a small dose of Ativan to help her relax and she was given Toradol for her pain. I have encouraged the patient to keep the foot elevated and to watch the wound and surrounding erythema. If symptoms are worsening, she is directed to return here to the emergency department immediately. She will take clindamycin 3 times a day over the next 10 days. I have asked her to follow-up with her PCP tomorrow for recheck and referral to orthopedics. Medication Reconcilliation Current Medication List: was personally reviewed by me Blood Pressure Screening Patient's blood pressure: Normal blood pressure Impression Primary Impression: Abscess of left foot Scribe Attestation The scribe's documentation has been prepared under my direction and personally reviewed by me in its entirety. I confirm that the note above accurately reflects all work, treatment, procedures, and medical decision making performed by me. Departure Information Dispostion Home / Self-Care Prescriptions Clindamycin Hcl (CLEOCIN) 300 Mg Cap 300 MG PO TID for 10 Days, #30 CAP Prov: Mecca Finley D.O. 01/25/18 Clindamycin Hcl (CLEOCIN) 150 Mg Cap 150 MG PO TID, #30 CAP Prov: Mecca Finley D.O. 01/25/18 Referrals Mario Hercules III, M.D. (PCP) Forms HOME CARE DOCUMENTATION FORM, IMPORTANT VISIT INFORMATION Patient Instructions My [facility], Wound Care Additional Instructions Rest with your left foot elevated. Remove dressing once a day and wash with soap and water. Redress with antibiotic ointment and a sterile dressing Have the abscess rechecked in 2 days and then referred to ortho Return to the ER immediaely if the redness spreads up your leg or you devlop a fever, vomiting , or increased pain clindamycin at home as directed. 450mg every 8 hours for 10 days
[2018-01-25] MEDS ORDERED: LORAZEPAM 2 MG/ML 1 ML VIAL IV STA (00:05)
[2018-01-25 01:07] LABS: BASO % 0.1 %; BASO ABS # 0.01 K/uL (0-0.2); EOS % 3.1 %; EOS ABS # 0.28 K/uL (0-0.5); HEMATOCRIT 32.4 % (37-47); HEMOGLOBIN 10.6 g/dL (12.0-16.0); IG# 0.02 K/uL (0.00-0.02); LYMPH % 27.9 %; LYMPH ABS # 2.56 K/uL (1.2-3.4); MEAN CELL VOLUME 84.2 fL (80-100); MEAN CORPUSCULAR HEMOGLOBIN 27.5 pg (25-34); MEAN CORPUSCULAR HGB CONC 32.7 g/dl (32-36); MEAN PLATELET VOLUME 9.3 fL (7.4-10.4); MONO % 4.8 %; MONO ABS # 0.44 K/uL (0.11-0.59); NEUT % 63.9 %; NEUT ABS # 5.86 K/uL (1.4-6.5); PLATELET COUNT 245 K/uL (130-400); RED CELL DISTRIBUTION WIDTH CV 14.4 % (11.5-14.5); RED CELL DISTRIBUTION WIDTH SD 44.3 fL (36.4-46.3); WHITE BLOOD COUNT 9.17 K/uL (4.8-10.8)
[2018-01-25 01:18] LABS: INR 1.1 (0.9-1.1); PTT PATIENT 28.3 SECONDS (21.0-31.0)
[2018-01-25 01:28] LABS: ALBUMIN 3.1 gm/dl (3.4-5.0); CALCIUM 8.2 mg/dl (8.5-10.1); CREATININE 0.75 mg/dl (0.60-1.20); POTASSIUM 3.3 mmol/L (3.5-5.1)
[2018-01-25 01:30] LABS: TOTAL PROTEIN 7.6 gm/dl (6.4-8.2)
[2018-01-25] MEDS ORDERED: LIDOCAINE 1% BUFFERED INJ 5 ML VIAL INFIL ONE (01:45)
[2018-01-25] MEDS ORDERED: CLINDAMYCIN IV 900 MG in DEXTROSE 5% 100ML 100 ML IV ONE (01:45)
[2018-01-25] MEDS ORDERED: KETOROLAC TROMETHAMINE 30 MG/ML VIAL IV STA (02:16)
[2018-01-25] MEDS ORDERED: CLIN150C PO (02:33)
[2018-01-25] MEDS ORDERED: CLIN300C2 PO (02:33)
[2018-01-25 02:57] VITALS: BP 123/90; PULSE 84; O2SAT 100
--- NOTE | 2018-01-25 06:41 | DIAGNOSTIC IMAGING REPORT ---
CHEST ONE VIEW PORTABLE CLINICAL HISTORY: Sepsis COMPARISON STUDY: 09/10/2017 FINDINGS: The cardiac and mediastinal contours are normal. There is no evidence of focal pulmonary consolidation. There is no evidence of failure. No pleural effusions are visualized.[ IMPRESSION: No active disease in the chest. Electronically signed by: Manny Abbasi M.D. 01/25/2018 6:39 AM Dictated Date/Time: 01/25/2018 6:39 AM
--- NOTE | 2018-01-25 06:43 | DIAGNOSTIC IMAGING REPORT ---
L FOOT MIN 3 VIEWS ROUTINE CLINICAL HISTORY: Left foot pain. Sepsis. Evaluate for osteomyelitis or foreign body. COMPARISON: None. DISCUSSION: No fractures or dislocations are visualized. There are no erosive or destructive changes. There is mild dorsal soft tissue swelling. No radiopaque foreign bodies are visualized. There is a corticated ossicle adjacent the ulnar styloid. This is felt to be old. IMPRESSION: Mild soft tissue swelling. No evidence of fracture. No radiopaque foreign bodies are visualized. No conventional radiographic evidence of osteomyelitis Electronically signed by: Manny Abbasi M.D. 01/25/2018 6:42 AM Dictated Date/Time: 01/25/2018 6:41 AM
== END 2018-01-25 02:59 | disposition home or self-care (01) ==
LOC: C.EDB 22:42 → C.EDC 01-25 02:59
DX: L02.612 Cutaneous abscess of left foot (principal); F20.9 Schizophrenia, unspecified; F14.90 Cocaine use, unspecified, uncomplicated; F12.90 Cannabis use, unspecified, uncomplicated; F11.90 Opioid use, unspecified, uncomplicated; F13.20 Sedative, hypnotic or anxiolytic dependence, uncomplicated; F16.10 Hallucinogen abuse, uncomplicated; Z79.899 Other long term (current) drug therapy; Z88.5 Allergy status to narcotic agent; Z88.2 Allergy status to sulfonamides; Z88.0 Allergy status to penicillin; Z88.1 Allergy status to other antibiotic agents; Z88.8 Allergy status to other drugs, medicaments and biological substances

== ENCOUNTER 2018-03-06 14:44 | Emergency (ER) | payer OTHER ==
[~2018-03-06] VITALS: Ht 157.5 cm; Wt 64.0 kg
[~2018-03-06 14:44] MED LIST changes: -CLON1TAB3 PO
[2018-03-06 14:48] VITALS: TEMP 36.7; Ht 157.5 cm; Wt 64.0 kg
[2018-03-06] MEDS ORDERED: ALPR-385 PO (15:07)
[2018-03-06] MEDS ORDERED: SERT-234 PO (15:07)
[2018-03-06] MEDS ORDERED: CHLO100T8 PO ×2 (15:07)
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
[2018-03-06] MEDS ORDERED: OPTIRAY 320 IV PRN (15:30)
[2018-03-06] MEDS ORDERED: SODIUM CHLORIDE 0.9% 1000ML 1,000 ML IV STA (16:42)
[2018-03-06 17:02] LABS: BASO % 0.2 %; BASO ABS # 0.01 K/uL (0-0.2); EOS % 5.1 %; EOS ABS # 0.33 K/uL (0-0.5); HEMATOCRIT 32.5 % (37-47); HEMOGLOBIN 10.6 g/dL (12.0-16.0); IG# 0.02 K/uL (0.00-0.02); LYMPH % 46.4 %; LYMPH ABS # 2.99 K/uL (1.2-3.4); MEAN CORPUSCULAR HEMOGLOBIN 27.4 pg (25-34); MEAN CORPUSCULAR HGB CONC 32.6 g/dl (32-36); MEAN PLATELET VOLUME 10.4 fL (7.4-10.4); MONO % 5.3 %; MONO ABS # 0.34 K/uL (0.11-0.59); NEUT % 42.7 %; NEUT ABS # 2.76 K/uL (1.4-6.5); PLATELET COUNT 248 K/uL (130-400); RED CELL DISTRIBUTION WIDTH CV 14.3 % (11.5-14.5); RED CELL DISTRIBUTION WIDTH SD 43.7 fL (36.4-46.3); WHITE BLOOD COUNT 6.45 K/uL (4.8-10.8)
[2018-03-06 17:34] LABS: ALKALINE PHOSPHATASE 118 U/L (45-117); ALT/SGPT 15 U/L (12-78); BLOOD UREA NITROGEN 9 mg/dl (7-18); CALCIUM 8.1 mg/dl (8.5-10.1); CARBON DIOXIDE 21 mmol/L (21-32); CREATININE 0.63 mg/dl (0.60-1.20); GLUCOSE 104 mg/dl (70-99); SODIUM 140 mmol/L (136-145); TOTAL PROTEIN 6.7 gm/dl (6.4-8.2)
[2018-03-06] MEDS ORDERED: DOXYCYCLINE HYCLATE 100 MG CAP PO ONE (18:15)
--- NOTE | 2018-03-06 18:30 | DIAGNOSTIC IMAGING REPORT ---
R UPPER EXTREMITY WITH, L UPPER EXTREMITY WITH HISTORY: 32 years-old Female abscess acute swelling of the bilateral upper extremities with concern for abscess. COMPARISON: None available TECHNIQUE: Multiple axial CT images of the bilateral upper extremities were obtained following the intravenous administration of 114 mL Optiray 320 IV contrast. Coronal and sagittal reformatted images were obtained from the axial data set and were submitted for review. A dose lowering technique was used consistent with the principals of ALARA. FINDINGS: Study is limited secondary to positioning of the bilateral upper extremities with the forearms folded across the patient's chest. Mild residual thymic tissue of the anterior mediastinum. Heart is normal in size without pericardial effusion. Thoracic aorta is normal in both course and caliber without aneurysm or dissection. The opacified pulmonary arterial tree appears unremarkable. No pathologic adenopathy of the chest. Spleen is mildly enlarged. 4 mm solid nodule of the right upper lobe, image 22 series 2. No pneumothorax, pleural effusion or focal airspace consolidation. Minimal dependent subsegmental bibasilar atelectasis. Imaged upper abdominal structures demonstrate no acute abnormality. Bilateral breast parenchyma appears unremarkable. Bones of the chest appear intact. RIGHT UPPER EXTREMITY: There is mild skin thickening with subcutaneous edema about the upper arm, notably along the medial margin deep to the skin marker. No foreign body or drainable fluid collection. The bones of the right upper extremity appear intact without fracture, dislocation or erosive changes. LEFT UPPER EXTREMITY: There is mild to moderate subcutaneous edema and skin thickening about the lateral aspect of the proximal forearm with a few foci of subcutaneous emphysema noted, image 115 series 10 for example. No drainable fluid collections or opaque foreign body identified. Mild subcutaneous edema and skin thickening is also noted about the dorsal aspect of the proximal and mid forearm. The upper arm appears unremarkable. The bones of the left upper extremity appear intact without acute fracture, dislocation or erosive changes. Bone island of the distal humerus noted. IMPRESSION: 1. No abscess or drainable fluid collection identified within the left or right upper extremity. 2. Mild subcutaneous edema and skin thickening about the medial right upper arm suggests cellulitis. 3. Mild to moderate subcutaneous edema and skin thickening about the proximal and mid left forearm with scattered foci of subcutaneous edema about the lateral proximal forearm suggests cellulitis with possible intervention/penetrating trauma or gas forming organism. No drainable fluid collection or radiopaque foreign body. 4. No acute fracture or bony erosive changes. The above report was generated using voice recognition software. It may contain grammatical, syntax or spelling errors. Electronically signed by: Lux Carmona M.D. 03/06/2018 6:29 PM Dictated Date/Time: 03/06/2018 6:18 PM
[2018-03-06 18:40] VITALS: BP 135/86; PULSE 70; O2SAT 100
[2018-03-06] MEDS ORDERED: DOXY-369 PO (18:53)
--- NOTE | 2018-03-12 08:11 | EDITING REQUIRED CODING QUERY ---
CODING QUERY To promote full compliance with coding requirements relating to patient care, provider participation is requested in all cases of central station operator uncertainty. Please assist us with the question(s) below: Coding Question(s): IV drug abuse is documented in the Medical Decision and Impression section but under Social History, drug use is documented as none. Please clarify documentation. Physician's Response(s): Meaning patient initially denied at bedside, then later admitted and review or the EMR showed hx of IVDA. Thank you Josie Arriaga Principal Diagnosis: "_that condition established after study, to be chiefly responsible for occasioning the admission of the patient to the hospital for care." Co-Existing Principal Diagnosis: "_when two or more diagnoses equally meet the criteria for principal diagnosis as determined by the circumstances of admission, diagnostic work up, and/or therapy provided, and the Alphabetic Index, Tabular List, or another coding guideline does not provide sequencing direction, any one of the diagnoses may be sequenced first." "When the physician has documented what appears to be a current diagnosis in the body of the record, but has not included the diagnosis in the final diagnostic statement, the physician should be asked whether the diagnosis should be added." (Source Coding [facility] 2 QTR90. p3-4)
[2018-04-05] MEDS ORDERED: BUPR8SUB19 SL (15:07)
[2018-04-05] MEDS ORDERED: CLON1TAB5 PO (15:35)
[2018-04-05] MEDS ORDERED: HYDR2.5C37 TOP (22:12)
[2018-04-05] MEDS ORDERED: METR-163 PO (22:12)
[2018-04-05] MEDS ORDERED: DOXY100C PO (22:12)
[2018-04-05] MEDS ORDERED: ONDA4TAB10 SL (22:12)
== END 2018-03-06 19:09 | disposition home or self-care (01) ==
LOC: C.EDB 14:46 → C.EDC 19:09
DX: L03.114 Cellulitis of left upper limb (principal); W50.4XXA Accidental scratch by another person, initial encounter; F20.0 Paranoid schizophrenia; F19.10 Other psychoactive substance abuse, uncomplicated; F17.200 Nicotine dependence, unspecified, uncomplicated; Z79.899 Other long term (current) drug therapy; Z88.6 Allergy status to analgesic agent; Z88.2 Allergy status to sulfonamides; Z88.1 Allergy status to other antibiotic agents; Z88.0 Allergy status to penicillin; Z88.8 Allergy status to other drugs, medicaments and biological substances

== ENCOUNTER 2018-04-14 18:43 | Emergency (ER) | payer OTHER ==
[~2018-04-14 18:43] MED LIST changes: -ALPR-411 PO; -BENZ-89 PO; -BUPR-79 PO; -BUPR8MIS SL; +BUPR8SUB19 SL; +CLON1TAB5 PO; +DOXY100C PO; -HALO10TA17 PO; -HALO5TAB PO; +METR-163 PO; +ONDA4TAB10 SL
[2018-04-14 18:45] VITALS: TEMP 36.7; Ht 157.5 cm
[2018-04-14] MEDS ORDERED: CLONAZEPAM 0.5 MG TAB PO STA (19:03)
--- NOTE | 2018-04-14 19:05 | EMERGENCY ROOM VISIT NOTE ---
History Report prepared by Tawanda: Jen Jackman Under the Supervision of: Dr. Lauro Joseph M.D. First contact with patient: 18:53 Chief Complaint: ANXIETY Stated Complaint: PANIC ATTACK History of Present Illness The patient is a 33 year old female who presents to the Emergency Room with complaints of multiple episodes of panic attacks beginning today. She notes she had 4 or 5 severe panic attacks today. The patient reports a history of panic attacks, but notes they are usually less intense than the ones she experienced today. She notes she is experiencing a headache and chest pain, which she attributes to hyperventilating. The patient states she is having a hard time keeping her balance and felt as though she was tripping while walking earlier. She notes a recent diagnosis of paranoid schizophrenia. The patient reports her psychiatrist recently increased her Zoloft dose from 150 mg to 200 mg and her Klonopin dose from 2 mg to 3 mg. She reports she also takes Subutex daily. Source of History: patient Onset: today Position: head Symptom Intensity: severe Quality: other (panic attacks) Timing: other (multiple episodes) Associated Symptoms: + headache, + chest pain Note: Associated symptom: difficulty keeping balance. Review of Systems See HPI for pertinent positives and negatives. A total of ten systems were reviewed and were otherwise negative. Past Medical & Surgical Medical Problems: (1) ruptured membranes 31 weeks 1day (2) Schizophrenia Surgical Problems: (1) H/O hernia repair (2) H/O: section Family History No significant family history Social History Smoking Status: Current Every Day Smoker Alcohol Use: occasionally Drug Use: none Marital Status: single Housing Status: lives alone Occupation Status: employed Current/Historical Medications Scheduled Buprenorphine Hcl (Subutex), 8 MG SL TID Sertraline (Zoloft), 200 MG PO DAILY Scheduled PRN Clonazepam (Klonopin), 1 MG PO TID PRN for Anxiety Allergies Coded Allergies: Morphine (Verified Allergy, Severe, RASH, 04/14/18) Sulfamethoxazole w/Trimethoprim (Verified Allergy, Intermediate, HIVES, 04/14/18) Codeine (Verified Allergy, Unknown, HIVES, 04/14/18) Levofloxacin (Verified Allergy, Unknown, HIVES, 04/14/18) Nitrofurantoin (Verified Allergy, Unknown, 04/14/18) Penicillins (Verified Allergy, Unknown, AMOXICILLIN, 04/14/18) Quinolones (Verified Adverse Reaction, Intermediate, NEURO SIDE EFFECTS, ) Physical Exam Vital Signs Date Time Temp Pulse Resp B/P (MAP) Pulse Ox O2 Delivery O2 Flow Rate FiO2 04/14/18 20:16 89 20 100/60 100 04/14/18 18:45 36.7 109 22 139/92 98 Room Air Physical Exam GENERAL: Awake, alert, anxious-appearing HENT: Normocephalic, atraumatic. Oropharynx unremarkable. EYES: Normal conjunctiva. Sclera non-icteric. NECK: Supple. No nuchal rigidity. RESPIRATORY: Clear to auscultation. No wheezes. Normal respiratory effort but slight tachypnea. CARDIAC: Normal rate. Normal rhythm. Extremities warm and well perfused. GI: Soft, non-distended. No tenderness to palpation. No rebound or guarding RECTAL: Deferred. MUSCULOSKELETAL: Atraumatic. Chest examination reveals no tenderness. LOWER EXTREMITIES: Calves are equal size bilaterally and non-tender. No edema NEURO: Normal sensorium. No sensory or motor deficits noted. No facial droop. SKIN: Warm and dry. No rash or jaundice noted. Psych: NO SI or HI. No response to external stimuli. Patient moderately anxious. Intact fund of knowledge. Medical Decision & Procedures Laboratory Results Test 04/14/18 19:15 Bedside Glucose 107 mg/dl (70-90) Laboratory results reviewed by me Medications Administered Medications (Trade) Dose Ordered Sig/Kleber Route Start Time Stop Time Status Last Admin Dose Admin Clonazepam (Klonopin Tab) 2 mg NOW STAT PO 04/14/18 19:03 04/14/18 19:04 DC 04/14/18 19:13 2 MG ECG Per My Interpretation Indication: tachycardia Rate (beats per minute): 96 Rhythm: normal sinus Findings: other (normal intervals. normal axis. nonspecific V3 T-wave change) Comparison ECG Date: 08/21/17 Change: no significant change ED Course 1852: The patient was evaluated in room A6. A complete history and physical exam was performed. 1902: Ordered Clonazepam 2 mg PO. 1999: I reevaluated the patient. Discussed results and discharge instructions: she verbalized understanding and agreement. The patient is ready for discharge. Medical Decision Etiologies such as mood disorder, infection, hypoglycemia, electrolyte abnormalities, cardiac sources, intracerebral event, toxicologic, neurologic, as well as others were entertained. Patient is complaining of acute anxiety. States history of anxiety and schizophrenia. States that she ran out of her Klonopin today. Her doctor's office referred her here tonight. Has a prescription for Klonopin tomorrow. Endorses some numbness of the head and pain in the denies significant trauma. Otherwise well-appearing but anxious. Some Benadryl helped minimally earlier. Given a dose of Klonopin. EKG and glucose obtained. Unremarkable. No SI or HI. Under prior evaluation and will defer additional blood work at this time. She does not want inpatient psychiatric help. Psychiatric patient case manager discussed with her as well. Chest tightness resolved and headache is minimal after receiving medication. Do not believe is intracranial hemorrhage or mass; defer CT. This is likely result of her anxiety state all day. Feel the patient is stable for discharge she is in agreement with this plan. No additional prescribe medication. Recommend close follow-up with primary care provider tomorrow. Medication Reconcilliation Current Medication List: was personally reviewed by me Blood Pressure Screening Patient's blood pressure: Elevated blood pressure Blood pressure disposition: Elevated BP felt to be situational Impression Primary Impression: Acute anxiety Scribe Attestation The scribe's documentation has been prepared under my direction and personally reviewed by me in its entirety. I confirm that the note above accurately reflects all work, treatment, procedures, and medical decision making performed by me. Departure Information Dispostion Home / Self-Care Referrals Mario Hercules III, M.D. (PCP) Forms HOME CARE DOCUMENTATION FORM, IMPORTANT VISIT INFORMATION Patient Instructions My [facility] Additional Instructions Continue to follow-up with your regular doctor and discuss your long-term anxiety medication regimen. If at any point you feel unsafe, capacitated by her anxiety, with thoughts of hurting herself or anybody else please return here for reevaluation. Please do not operate heavy machinery or utilize drugs or alcohol tonkarina given you received the Klonopin here.
[2018-04-14] MEDS ORDERED: SERT-234 PO (20:14)
[2018-04-14 20:16] VITALS: BP 100/60; PULSE 89; O2SAT 100
== END 2018-04-14 20:18 | disposition home or self-care (01) ==
LOC: EDBD 18:43 → C.EDA 18:44
DX: F41.0 Panic disorder [episodic paroxysmal anxiety] (principal); F20.0 Paranoid schizophrenia; Z79.899 Other long term (current) drug therapy; F17.200 Nicotine dependence, unspecified, uncomplicated; Z88.6 Allergy status to analgesic agent; Z88.2 Allergy status to sulfonamides; Z88.1 Allergy status to other antibiotic agents; Z88.0 Allergy status to penicillin

== ENCOUNTER 2018-04-18 17:16 | Emergency (ER) | payer OTHER ==
[~2018-04-18] VITALS: Ht 152.4 cm; Wt 70.6 kg
[~2018-04-18 17:16] MED LIST changes: -DOXY100C PO; -METR-163 PO; -ONDA4TAB10 SL; +SERT-234 PO
[2018-04-18 17:23] VITALS: TEMP 36.6; Ht 152.4 cm; Wt 70.6 kg
[2018-04-18] MEDS ORDERED: SODIUM CHLORIDE 0.9% 1000ML 1,000 ML IV STA ×2 (17:47)
[2018-04-18] MEDS ORDERED: KETOROLAC TROMETHAMINE 30 MG/ML VIAL IV STA (17:47)
--- NOTE | 2018-04-18 18:08 | DIAGNOSTIC IMAGING REPORT ---
CHEST ONE VIEW PORTABLE CLINICAL HISTORY: fever cough COMPARISON STUDY: 01/24/2018 FINDINGS: The bones soft tissues and hemidiaphragms are normal. The cardiomediastinal silhouette is normal. The lungs are clear. The pulmonary vasculature is normal. IMPRESSION: Negative chest. The above report was generated using voice recognition software. It may contain grammatical, syntax or spelling errors. Electronically signed by: David Jacobs M.D. 04/18/2018 6:07 PM Dictated Date/Time: 04/18/2018 6:07 PM
[2018-04-18 18:50] LABS: BASO % 0.2 %; BASO ABS # 0.01 K/uL (0-0.2); EOS % 3.1 %; EOS ABS # 0.13 K/uL (0-0.5); HEMATOCRIT 32.8 % (37-47); HEMOGLOBIN 10.8 g/dL (12.0-16.0); IG# 0.01 K/uL (0.00-0.02); LYMPH % 38.5 %; LYMPH ABS # 1.64 K/uL (1.2-3.4); MEAN CELL VOLUME 84.3 fL (80-100); MEAN CORPUSCULAR HEMOGLOBIN 27.8 pg (25-34); MEAN CORPUSCULAR HGB CONC 32.9 g/dl (32-36); MEAN PLATELET VOLUME 10.2 fL (7.4-10.4); MONO % 7.7 %; MONO ABS # 0.33 K/uL (0.11-0.59); NEUT % 50.3 %; NEUT ABS # 2.14 K/uL (1.4-6.5); PLATELET COUNT 164 K/uL (130-400); RED CELL DISTRIBUTION WIDTH SD 49.2 fL (36.4-46.3); WHITE BLOOD COUNT 4.26 K/uL (4.8-10.8)
[2018-04-18 19:10] LABS: ALKALINE PHOSPHATASE 193 U/L (45-117); ALT/SGPT 38 U/L (12-78); AST/SGOT 110 U/L (15-37); BLOOD UREA NITROGEN 10 mg/dl (7-18); CALCIUM 7.6 mg/dl (8.5-10.1); CARBON DIOXIDE 21 mmol/L (21-32); CREATININE 0.76 mg/dl (0.60-1.20); GLUCOSE 118 mg/dl (70-99); POTASSIUM 3.2 mmol/L (3.5-5.1); SODIUM 137 mmol/L (136-145); TOTAL PROTEIN 7.1 gm/dl (6.4-8.2)
[2018-04-18 20:20] VITALS: BP 112/70; PULSE 113; O2SAT 96
--- NOTE | 2018-04-18 23:33 | EMERGENCY ROOM VISIT NOTE ---
History First contact with patient: 17:37 Chief Complaint: FEVER Stated Complaint: FEVER, HEADACHE History of Present Illness The patient is a 33 year old female who presents to the Emergency Room with complaints of headache, neck pain. Patient states she had a fever the other night that was assessed by her friend at a constitution party. Patient stated she was feeling warm and the friend put his hand on her forehead and "estimated 104." Patient states she has been fatigued and sleeping nonstop for the last several days. Patient has a history of substance abuse, but states she has "been clean " with the exception of her Suboxone and Klonopin as prescribed. Patient states she is nauseated but has had no vomiting. She has had some diarrhea. Review of Systems See HPI for pertinent positives & negatives. A total of 10 systems reviewed and were otherwise negative. Past Medical/Surgical History Medical Problems: (1) ruptured membranes 31 weeks 1day (2) Schizophrenia Surgical Problems: (1) H/O hernia repair (2) H/O: section Family History No significant family history Social History Smoking Status: Former Smoker Alcohol Use: occasionally Drug Use: none Marital Status: single Housing Status: lives alone Occupation Status: employed Current/Historical Medications Scheduled Buprenorphine Hcl (Subutex), 8 MG SL TID Sertraline (Zoloft), 200 MG PO DAILY Scheduled PRN Clonazepam (Klonopin), 1 MG PO TID PRN for Anxiety Physical Exam Vital Signs Date Time Temp Pulse Resp B/P (MAP) Pulse Ox O2 Delivery O2 Flow Rate FiO2 04/18/18 20:20 113 20 112/70 96 Room Air 04/18/18 18:25 115 20 105/68 97 Room Air 04/18/18 18:10 104 04/18/18 17:23 36.6 112 20 101/61 97 Room Air 3.0 Physical Exam Vital signs reviewed. General: Disheveled, smells of alcohol 33-year-old female, in no significant distress. HEENT: No scleral icterus, PERRLA, neck supple. Atraumatic. No meningeal signs. Cardiovascular: Regular rate and rhythm, no extra sounds. Pulmonary: Clear to auscultation bilaterally, normal work of breathing. Abdomen: Soft, nontender, nondistended, positive bowel sounds. Musculoskeletal: Atraumatic, no peripheral edema. Neurologic: Patient awake alert and oriented x 3, speech is slurred, full strength in all 4 extremities. Cranial nerves 2 through 12 grossly intact. Skin: Warm, dry, no rash Medical Decision & Procedures Laboratory Results 04/18/18 18:28 Red Blood Count 3.89, Mean Corpuscular Volume 84.3, Mean Corpuscular Hemoglobin 27.8, Mean Corpuscular Hemoglobin Concent 32.9, Mean Platelet Volume 10.2, Neutrophils (%) (Auto) 50.3, Lymphocytes (%) (Auto) 38.5, Monocytes (%) (Auto) 7.7, Eosinophils (%) (Auto) 3.1, Basophils (%) (Auto) 0.2, Neutrophils # (Auto) 2.14, Lymphocytes # (Auto) 1.64, Monocytes # (Auto) 0.33, Eosinophils # (Auto) 0.13, Basophils # (Auto) 0.01 04/18/18 18:28 Test 04/18/18 18:28 04/18/18 18:41 04/18/18 18:52 White Blood Count 4.26 K/uL (4.8-10.8) Red Blood Count 3.89 M/uL (4.2-5.4) Hemoglobin 10.8 g/dL (12.0-16.0) Hematocrit 32.8 % (37-47) Mean Corpuscular Volume 84.3 fL (80-100) Mean Corpuscular Hemoglobin 27.8 pg (25-34) Mean Corpuscular Hemoglobin Concent 32.9 g/dl (32-36) Platelet Count 164 K/uL (130-400) Mean Platelet Volume 10.2 fL (7.4-10.4) Neutrophils (%) (Auto) 50.3 % Lymphocytes (%) (Auto) 38.5 % Monocytes (%) (Auto) 7.7 % Eosinophils (%) (Auto) 3.1 % Basophils (%) (Auto) 0.2 % Neutrophils # (Auto) 2.14 K/uL (1.4-6.5) Lymphocytes # (Auto) 1.64 K/uL (1.2-3.4) Monocytes # (Auto) 0.33 K/uL (0.11-0.59) Eosinophils # (Auto) 0.13 K/uL (0-0.5) Basophils # (Auto) 0.01 K/uL (0-0.2) RDW Standard Deviation 49.2 fL (36.4-46.3) RDW Coefficient of Variation 16.0 % (11.5-14.5) Immature Granulocyte % (Auto) 0.2 % Immature Granulocyte # (Auto) 0.01 K/uL (0.00-0.02) Anion Gap 10.0 mmol/L (3-11) Estimated GFR () 118.6 Estimated GFR (Non- 102.3 BUN/Creatinine Ratio 13.6 (10-20) Calcium Level 7.6 mg/dl (8.5-10.1) Total Bilirubin 0.4 mg/dl (0.2-1) Direct Bilirubin 0.2 mg/dl (0-0.2) Aspartate Amino Transf (AST/SGOT) 110 U/L (15-37) Alanine Aminotransferase (ALT/SGPT) 38 U/L (12-78) Alkaline Phosphatase 193 U/L (45-117) Total Protein 7.1 gm/dl (6.4-8.2) Albumin 3.0 gm/dl (3.4-5.0) Human Chorionic Gonadotropin, Qual NEG (NEG) Ethyl Alcohol mg/dL 146.0 mg/dl (0-3) Bedside Lactic Acid Venous 3.35 mmol/L (0.90-1.70) Urine Color YELLOW Urine Appearance CLEAR (CLEAR) Urine pH 6.0 (4.5-7.5) Urine Specific [place] 1.011 (1.000-1.030) Urine Protein TRACE (NEG) Urine Glucose (UA) NEG (NEG) Urine Ketones NEG (NEG) Urine Occult Blood NEG (NEG) Urine Nitrite NEG (NEG) Urine Bilirubin NEG (NEG) Urine Urobilinogen POS (NEG) Urine Leukocyte Esterase NEG (NEG) Urine WBC (Auto) 1-5 /hpf (0-5) Urine RBC (Auto) 0-4 /hpf (0-4) Urine Hyaline Casts (Auto) 0 /lpf (0-5) Urine Epithelial Cells (Auto) >30 /lpf (0-5) Urine Bacteria (Auto) NEG (NEG) Urine Opiates Screen NEG (NEG) Urine Methadone, Qualitative NEG (NEG) Urine Barbiturates NEG (NEG) Urine Phencyclidine (PCP) Level NEG (NEG) Ur Amphetamine/Methamphetamine POS (NEG) MDMA (Ecstasy) Screen NEG (NEG) Urine Benzodiazepines Screen POS (NEG) Urine Cocaine Metabolite NEG (NEG) Urine Marijuana (THC) NEG (NEG) Medications Administered Medications (Trade) Dose Ordered Sig/Kleber Route Start Time Stop Time Status Last Admin Dose Admin Sodium Chloride 1,000 ml @ 999 mls/hr Q1H1M STAT IV 04/18/18 17:47 04/18/18 18:47 DC 04/18/18 17:47 999 MLS/HR Ketorolac Tromethamine (Toradol Inj) 30 mg NOW STAT IV 04/18/18 17:47 04/18/18 17:50 DC 04/18/18 19:09 30 MG Medical Decision Differential diagnosis of this patient's presentation includes viral illness, meningitis, pneumonia, substance abuse, withdrawal, dehydration, electrolyte abnormality, closed head injury. Patient was evaluated and appeared to be in no significant distress. IV access was obtained and laboratory work was drawn. Patient is noted to be tachycardic. She does smell of alcohol. Patient was hydrated with normal saline solution. She was given 30 mg of Toradol IV. Patient was able to urinate and is found to be positive for benzodiazepines, amphetamines, and has an alcohol level of 148. Patient is opiate negative. She is on Suboxone which likely would not be detected on the drug screen. The patient's lactic acid is elevated, I suspect this is secondary to the alcohol in her system. I had a long conversation with the patient that she is intoxicated. She seems to be more clinically intoxicated than her alcohol level would support. I suspect this is related to polysubstance situation. The patient requested to sign out AMA however I did not feel that she is stable to make this decision. We have discussed repeat lactic acid and the possibility of lumbar puncture. The patient was found down the jeff by the nursing station, pulled out her own saline lock and was bleeding on the floor. She was agitated and confronting the nursing staff. Patient was talked down, she requested to sign out AGAINST MEDICAL ADVICE again. She asked if her father arrived in the ER if she could leave. Approximately 30 minutes later, her father did arrive. I had a conversation with him and he stated she has been "gone for 4 days." He did not know where she was or what she was doing. I suspect the patient was on a binge of substance use. I did explain that it is impossible to determine whether or not the patient has an infectious etiology without repeat laboratory work. There is no way to determine for sure if she has meningitis without a lumbar puncture. The patient is ambulatory, ate a hamburger in the room and is afebrile in the department. He did express an understanding of the risks including deterioration, increased pain and . He signed the patient out AGAINST MEDICAL ADVICE and took her home to his house. Patient was advised to return to the emergency department at anytime for further care. Impression Primary Impression: Left against medical advice Additional Impressions: Alcohol intoxication Polysubstance dependence Headache Neck pain Departure Information Dispostion Against Medical Advice Condition GOOD Forms HOME CARE DOCUMENTATION FORM, IMPORTANT VISIT INFORMATION Patient Instructions My [facility] Additional Instructions Diagnosis: Polysubstance dependency, alcohol intoxication, headache, neck pain You have declined any further laboratory evaluation, including lumbar puncture, to rule out meningitis. Please drink plenty of clear fluids. Avoid alcohol, energy drinks, illicit substances. Tylenol 650 mg every 6 hours as needed for pain. Follow-up with your primary care physician within the next several days for reevaluation. Return to the emergency department for worsening of symptoms or any medical concerns. Problem Qualifiers
== END 2018-04-18 21:20 | disposition left against medical advice (07) ==
LOC: C.EDB 17:18
DX: F10.129 Alcohol abuse with intoxication, unspecified (principal); R51 Headache; M54.2 Cervicalgia; F20.9 Schizophrenia, unspecified; Z87.891 Personal history of nicotine dependence

== ENCOUNTER 2022-05-18 17:57 | Inpatient (IN) ==
[2022-05-18] MEDS ORDERED: SODIUM CHLORIDE 0.9% 1000ML 1,000 ML IV ONE (19:55)
--- NOTE | 2022-05-18 19:57 | Emergency Department Note ---
History of Present Illness General Chief complaint: Alcohol Withdrawal Stated complaint: ALCOHOL WITHDRAWAL, SHAKES, VOMITING, DIZZY Time Seen by Provider: 05/18/22 19:41 Source: patient History of Present Illness Provider complaint: Alcohol withdrawal Onset (ago): day(s) Location: head Pain Consistency: + constant Maximum Pain Intensity: 0 Quality: + other (Shakes) Relieved By: + other (Drinking alcohol) Associated symptoms: + nausea/vomiting; no chest pain, no cough, no fever/chills, no headaches, no seizure or no shortness of breath This is a 37-year-old female with a longstanding history of alcohol abuse since age 11 presenting with concern for alcohol withdrawal. She states that in the past she was able to drink large amounts of alcohol and quit without any significant effects. She has been drinking quite heavily over the past year and states that recently she tried to stop drinking about a week ago and she developed severe shakes, some tightness in her chest some shortness of breath, vomiting, stomach pain and anxiety. She was able to drink again and has been drinking every day for the past week. She has at least 8 tall boys of beer a day. She was concerned that if she tried to stop drinking again she would get very sick as she did about a week ago. She did not have any seizures. She did not hit her head. She states that she does not have any chest pain or shortness of breath anymore. She is just very anxious about trying to stop alcohol use. She states that she felt very warm and had chills when she was withdrawing but does not anymore. She denies any cough and states that she had COVID about 2 years ago. She is not currently having any abdominal pain or vomiting or diarrhea. She has no urinary symptoms. She states that she drank a large amount of beer just prior to coming here. Home Medications Medication Instructions Recorded Confirmed Type norethindrone acetate 1.5 See Rx Instructions .Route .COMPLEX 02/03/21 05/18/22 History mg-ethinyl estradiol 30 mcg tablet (Claudette) buprenorphine 8 mg-naloxone 2 mg 2 tab sublingual DAILY 05/18/22 05/18/22 History sublingual tablet Allergies Allergy/AdvReac Type Severity Reaction Status Date / Time morphine Allergy Severe RASH Verified 05/18/22 21:13 codeine Allergy Intermediate HIVES Verified 05/18/22 21:13 levofloxacin Allergy Intermediate HIVES Verified 05/18/22 21:13 sulfamethoxazole Allergy Intermediate HIVES Verified 05/18/22 21:13 trimethoprim Allergy Intermediate HIVES Verified 05/18/22 21:13 nitrofurantoin Allergy Unknown Unknown Verified 05/18/22 21:13 Penicillins Allergy Unknown AMOXICILLIN Verified 05/18/22 21:13 Quinolones AdvReac Intermediate NEURO SIDE Verified 05/18/22 21:13 EFFECTS Past Med/Surg History Medical History (Updated 05/19/22 @ 02:51 by Kash Ackerman MD) Anemia Anxiety Cellulitis Cervical paraspinal muscle spasm History of hepatitis C MDD (major depressive disorder) Panic attack Polysubstance abuse Polysubstance dependence Surgical History H/O hernia repair H/O: section History of section Family History Other Adopted No pertinent family history Social History Smoking Status: Current every day smoker Tobacco Type: E-cigarettes / Vaping Years Smoked: 22; Cigarettes Per Day: 1/2 ppd; Second Hand Exposure: No; Hx Alcohol Use: Yes Alcohol type: beer Hx Substance Use: Yes Prescribed Medications: Opiates and Sedatives Non- Prescribed Medications Comment: Fentanyl and Xanax abuse Last Used Substance: Unknown Substance Use Type Other:: Pt refuses to answer. 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 and A total of 10 systems reviewed and were otherwise negative Physical Exam Vital Signs Vital Signs - 24 hr 05/18/22 18:24 05/18/22 19:34 05/18/22 20:30 Temperature 36.8 C Temperature Source Temporal Artery Scan Pulse Rate 110 H 109 H 107 H Pulse Rate from SpO2 Sensor 107 H Respiratory Rate 18 22 20 Blood Pressure 155/83 H 117/89 Blood Pressure Mean 107 98 Pulse Oximetry 98 97 95 Oxygen Delivery Method Room Air Room Air Room Air Sepsis Recent Fever Within 48 Hours No Sepsis New/Unexplained Change in Mental Status No Sepsis Action Taken by Nursing No Action Required 05/18/22 21:30 05/18/22 21:48 05/18/22 22:30 Temperature Temperature Source Pulse Rate 118 H 101 H 105 H Pulse Rate from SpO2 Sensor Respiratory Rate 16 22 18 Blood Pressure 119/99 Blood Pressure Mean 105 Pulse Oximetry 95 95 96 Oxygen Delivery Method Room Air Room Air Room Air Sepsis Recent Fever Within 48 Hours Sepsis New/Unexplained Change in Mental Status Sepsis Action Taken by Nursing Constitutional: Vital signs reviewed. Eyes: Pupils are equal round reactive to light. Conjunctiva are noninjected. ENT: Pharynx is clear without erythema or exudate. Mucous membranes are dry. Neck supple without meningeal signs. Respiratory: Clear to auscultation bilaterally. Breath sounds are equal bilaterally. Cardiovascular: Tachycardic. Regular rhythm. Heart rate 111. GI: Soft, nondistended and nontender. Bowel sounds are present. Musculoskeletal: No peripheral edema. No lower extremity tenderness. Integumentary: No cyanosis. or jaundice. Neurological: The patient is awake and alert. No focal deficits. Psychiatric: Very anxious. Course Administered Medications Lactated Ringer's (Lr) 1,000 mls @ 80 mls/hr IV .[id number] HANNAH Stop: 05/19/22 11:29 Last Admin: 05/19/22 01:05 Dose: 80 mls/hr Documented By: Zolpidem Tartrate (Zolpidem Tartrate 5 Mg Tab) 5 mg PO HS PRN PRN Reason: Sleep Stop: 06/17/22 23:52 Last Admin: 05/19/22 01:27 Dose: 5 mg Documented By: Discontinued Medications Gabapentin (Gabapentin 600 Mg Tab) 1,200 mg PO NOW ONE Stop: 05/18/22 22:48 Last Admin: 05/18/22 23:58 Dose: 1,200 mg Documented By: LITA Sodium Chloride (Nss 1000ml) 1,000 mls @ 999 mls/hr IV .Q1H1M ONE Stop: 05/18/22 20:55 Last Infusion: 05/18/22 22:04 Dose: 0 mls/hr Documented By: Admin: 05/18/22 20:49 Dose: 999 mls/hr Documented By: LITA Multivitamins 10 ml/ Thiamine HCl 100 mg/ Folic Acid 1 mg/Sodium Chloride 1,011.2 mls @ 1,011.2 mls/hr IV .Q1H ONE Stop: 05/18/22 20:57 Last Infusion: 05/18/22 23:59 Dose: 0 mls/hr Documented By: Admin: 05/18/22 22:23 Dose: 1,011.2 mls/hr Documented By: LITA Lorazepam (Lorazepam 2 Mg/1 Ml Vial) 1 mg IV NOW STA; Protocol Stop: 05/18/22 21:55 Last Admin: 05/18/22 22:04 Dose: 1 mg Documented By: LITA Lorazepam (Lorazepam 1 Mg Tab) 1 mg PO ONE PRN; Protocol PRN Reason: EtoH Withdrawal AWSS 6,7,8,9,10 Last Admin: 05/19/22 01:05 Dose: 1 mg Documented By: Medical Decision Making Differential Diagnosis Alcohol dependence, alcohol intoxication, alcohol withdrawal, anxiety, metabolic derangement Medical Records Attestation: I reviewed the patient's medical records. I did perform a limited focused review of portions of the patient's old chart on the electronic medical record. The patient has had no recent pertinent visits to this hospital. Home Medications Current Medication List: was personally reviewed by me Laboratory Data Attestation: I reviewed the patient's lab results. Result diagrams: 05/18/22 20:33 05/18/22 20:33 Lab Results 05/18/22 05/18/22 05/18/22 Range/Units 19:40 19:40 20:33 WBC 4.83 (4.8-10.8) K/ul RBC 4.17 (3.93-5.22) M/uL Hgb 11.9 L (12.0-16.0) g/dl Hct 36.8 (34.1-44.9) % MCV 88.2 (80.0-100.0) fL MCH 28.5 (25.0-34.0) pg MCHC 32.3 (32.0-36.0) g/dL RDW Std Deviation 47.0 H (36.4-46.3) fL RDW Coeff of Mateo 14.5 (11.5-14.5) % Plt Count 262 (130-400) K/uL MPV 10.2 (9.4-12.3) fL Immature Gran % (Auto) 0.2 % Neut % (Auto) 33.5 % Lymph % (Auto) 52.2 % [place] % (Auto) 5.0 % Eos % (Auto) 8.5 % Baso % (Auto) 0.6 % Neut # (Auto) 1.62 (1.4-6.5) K/uL Lymph # (Auto) 2.52 (1.2-3.4) K/uL [place] # (Auto) 0.24 (0.24-0.82) K/uL Eos # (Auto) 0.41 (0-0.50) K/uL Baso # (Auto) 0.03 (0-0.2) K/uL Immature Gran # (Auto) 0.01 (0.00-0.02) K/uL RBC Morphology Unremarkable PT (9.0-12.0) Seconds INR (0.9-1.1) APTT (21.0-31.0) Seconds PTT Ratio Sodium (136-145) mmol/L Potassium (3.5-5.1) mmol/L Chloride (98-107) mmol/L Carbon Dioxide (21-32) mmol/L Anion Gap (3-11) BUN (6-23) mg/dl Creatinine (0.6-1.2) mg/dl Est Cr Clr Drug Dosing ml/min Est GFR ( Amer) ml/min Est GFR (Non-Af Amer) ml/min BUN/Creatinine Ratio (10-20) Glucose (70-99(Fasting)) mg/dl Calcium (8.5-10.1) mg/dl Magnesium (1.7-2.4) mg/dl Total Bilirubin (0.2-1.0) mg/dl AST (13-39) U/L ALT (7-52) U/L Alkaline Phosphatase (34-104) U/L Troponin I High Sens (0-14) pg/ml Total Protein (6.0-8.3) gm/dl Albumin (3.4-5.0) gm/dl Globulin (2.5-4.0) gm/dl Albumin/Globulin Ratio (0.9-2) Urine Test Negative (Negative) Urine Opiates Screen Neg (Neg) Ur Methadone, Qual Neg (Neg) Urine Barbiturates Neg (Neg) Ur Phencyclidine (PCP) Neg (Neg) U Amphetamin/Meth Scrn Neg (Neg) MDMA (Ecstasy) Screen Neg (Neg) U Benzodiazepines Scrn Neg (Neg) Ur Cocaine Metabolite Neg (Neg) U Marijuana (THC) Screen Neg (Neg) Ethyl Alcohol mg/dL (<10.0) mg/dl SARS-CoV-2, RNA, NAAT (NEGATIVE) 05/18/22 05/18/22 05/18/22 Range/Units 20:33 20:33 20:33 WBC (4.8-10.8) K/ul RBC (3.93-5.22) M/uL Hgb (12.0-16.0) g/dl Hct (34.1-44.9) % MCV (80.0-100.0) fL MCH (25.0-34.0) pg MCHC (32.0-36.0) g/dL RDW Std Deviation (36.4-46.3) fL RDW Coeff of Mateo (11.5-14.5) % Plt Count (130-400) K/uL MPV (9.4-12.3) fL Immature Gran % (Auto) % Neut % (Auto) % Lymph % (Auto) % [place] % (Auto) % Eos % (Auto) % Baso % (Auto) % Neut # (Auto) (1.4-6.5) K/uL Lymph # (Auto) (1.2-3.4) K/uL [place] # (Auto) (0.24-0.82) K/uL Eos # (Auto) (0-0.50) K/uL Baso # (Auto) (0-0.2) K/uL Immature Gran # (Auto) (0.00-0.02) K/uL RBC Morphology PT 10.9 (9.0-12.0) Seconds INR 1.0 (0.9-1.1) APTT 28.5 (21.0-31.0) Seconds PTT Ratio 1.0 Sodium 140 (136-145) mmol/L Potassium 4.0 (3.5-5.1) mmol/L Chloride 106 (98-107) mmol/L Carbon Dioxide 25 (21-32) mmol/L Anion Gap 9 (3-11) BUN 13 (6-23) mg/dl Creatinine 0.86 (0.6-1.2) mg/dl Est Cr Clr Drug Dosing 83.7 ml/min Est GFR ( Amer) 99.3 ml/min Est GFR (Non-Af Amer) 85.7 ml/min BUN/Creatinine Ratio 15.1 (10-20) Glucose 119 H (70-99(Fasting)) mg/dl Calcium 8.3 L (8.5-10.1) mg/dl Magnesium 1.8 (1.7-2.4) mg/dl Total Bilirubin 0.3 (0.2-1.0) mg/dl AST 25 (13-39) U/L ALT 14 (7-52) U/L Alkaline Phosphatase 86 (34-104) U/L Troponin I High Sens 5.5 (0-14) pg/ml Total Protein 7.0 (6.0-8.3) gm/dl Albumin 3.8 (3.4-5.0) gm/dl Globulin 3.2 (2.5-4.0) gm/dl Albumin/Globulin Ratio 1.2 (0.9-2) Urine Test (Negative) Urine Opiates Screen (Neg) Ur Methadone, Qual (Neg) Urine Barbiturates (Neg) Ur Phencyclidine (PCP) (Neg) U Amphetamin/Meth Scrn (Neg) MDMA (Ecstasy) Screen (Neg) U Benzodiazepines Scrn (Neg) Ur Cocaine Metabolite (Neg) U Marijuana (THC) Screen (Neg) Ethyl Alcohol mg/dL 302.8 H (<10.0) mg/dl SARS-CoV-2, RNA, NAAT (NEGATIVE) 05/18/22 Range/Units 22:08 WBC (4.8-10.8) K/ul RBC (3.93-5.22) M/uL Hgb (12.0-16.0) g/dl Hct (34.1-44.9) % MCV (80.0-100.0) fL MCH (25.0-34.0) pg MCHC (32.0-36.0) g/dL RDW Std Deviation (36.4-46.3) fL RDW Coeff of Mateo (11.5-14.5) % Plt Count (130-400) K/uL MPV (9.4-12.3) fL Immature Gran % (Auto) % Neut % (Auto) % Lymph % (Auto) % [place] % (Auto) % Eos % (Auto) % Baso % (Auto) % Neut # (Auto) (1.4-6.5) K/uL Lymph # (Auto) (1.2-3.4) K/uL [place] # (Auto) (0.24-0.82) K/uL Eos # (Auto) (0-0.50) K/uL Baso # (Auto) (0-0.2) K/uL Immature Gran # (Auto) (0.00-0.02) K/uL RBC Morphology PT (9.0-12.0) Seconds INR (0.9-1.1) APTT (21.0-31.0) Seconds PTT Ratio Sodium (136-145) mmol/L Potassium (3.5-5.1) mmol/L Chloride (98-107) mmol/L Carbon Dioxide (21-32) mmol/L Anion Gap (3-11) BUN (6-23) mg/dl Creatinine (0.6-1.2) mg/dl Est Cr Clr Drug Dosing ml/min Est GFR ( Amer) ml/min Est GFR (Non-Af Amer) ml/min BUN/Creatinine Ratio (10-20) Glucose (70-99(Fasting)) mg/dl Calcium (8.5-10.1) mg/dl Magnesium (1.7-2.4) mg/dl Total Bilirubin (0.2-1.0) mg/dl AST (13-39) U/L ALT (7-52) U/L Alkaline Phosphatase (34-104) U/L Troponin I High Sens (0-14) pg/ml Total Protein (6.0-8.3) gm/dl Albumin (3.4-5.0) gm/dl Globulin (2.5-4.0) gm/dl Albumin/Globulin Ratio (0.9-2) Urine Test (Negative) Urine Opiates Screen (Neg) Ur Methadone, Qual (Neg) Urine Barbiturates (Neg) Ur Phencyclidine (PCP) (Neg) U Amphetamin/Meth Scrn (Neg) MDMA (Ecstasy) Screen (Neg) U Benzodiazepines Scrn (Neg) Ur Cocaine Metabolite (Neg) U Marijuana (THC) Screen (Neg) Ethyl Alcohol mg/dL (<10.0) mg/dl SARS-CoV-2, RNA, NAAT NEGATIVE (NEGATIVE) ECG Data Attestation: I personally reviewed and interpreted this ECG as follows: Indication: + tachycardia Rate (beats per minute): 109 Rhythm: + sinus tachycardia ECG [place]: + Normal ECG ST segments: no ST elevation ECG Findings: no PVCs Comparison ECG Date: from (April 04, 2021) Change: no significant change MDM Narrative I did evaluate the patient as noted above. The patient is presenting for alcohol dependence as well as withdrawal symptoms. IV access was established. I did place an order for continuous cardiac monitoring. The monitor showed sinus tachycardia rate of 107 bpm I did order and personally review the patient's 12-lead EKG as described above. she is tachycardic without acute ischemia. I did order and personally reviewed the images of the patient's ches t x-ray as described above. I did order a urine analysis. I did review the patient's blood work as noted in the electronic medical record. CBC demonstrates a hemoglobin 11.9. White count is 4.8 and platelet count is 262. PT and PTT are within normal limits. INR is 1. CMP is unremarkable other than a calcium of 8.3. Troponin is negative. Ethyl alcohol level is 303. COVID testing is negative. Urine tox screen is negative. I did treat her with normal saline IV as well as a banana bag IV. She remained hypertensive and tachycardic here and showed signs of withdrawal and so was given Ativan 1 mg IV. She will be hospitalized for further care and evaluation. I did discuss case with the hospitalist and corrections caseworker. Impression & Plan Alcohol withdrawal syndrome, Alcohol dependence Discharge Plan Visit Data Chief Complaint: Alcohol Withdrawal Stated Complaint: ALCOHOL WITHDRAWAL, SHAKES, VOMITING, DIZZY ED Provider: Kash Ackerman Discharge Problem: Alcohol withdrawal syndrome, Alcohol dependence Patient Disposition: Admitted As Inpatient Discharge Instructions Interventions: ED Discharge Assessment Last Done: 05/19/22 00:23
[2022-05-18] MEDS ORDERED: MULTI-VITAMIN INFUSION 10 ML, THIAMINE HCL 100 MG, FOLIC ACID 1 MG in SODIUM CHLORIDE 0... IV ONE (19:58)
[2022-05-18 20:09] LABS: Pregnancy Test, Urine Negative (Negative)
[2022-05-18 20:49] LABS: Amphetamines+Metham, Urine Neg (Neg); Barbiturates, Urine Neg (Neg); Benzodiazepine, Urine Neg (Neg); Cocaine, Urine Neg (Neg); MDMA (Ecstacy), Urine Neg (Neg); Methadone, Urine Neg (Neg); Opiate, Urine Neg (Neg); Phencyclidine, Urine Neg (Neg)
[2022-05-18 21:06] LABS: Hematocrit (blood only) 36.8 % (34.1-44.9); Hemoglobin 11.9 g/dl (12.0-16.0); Mean Corpuscular Hemoglobin 28.5 pg (25.0-34.0); Mean Corpuscular Hgb Conc 32.3 g/dL (32.0-36.0); Mean Corpuscular Volume 88.2 fL (80.0-100.0); Mean Platelet Volume 10.2 fL (9.4-12.3); Partial Thromboplastin Time 28.5 Seconds (21.0-31.0); Platelet Count 262 K/uL (130-400); Prothrombin Time 10.9 Seconds (9.0-12.0); RDW Coefficient of Variation 14.5 % (11.5-14.5); Red Blood Count 4.17 M/uL (3.93-5.22); White Blood Count 4.83 K/ul (4.8-10.8)
[2022-05-18 21:18] LABS: Troponin I High Sensitivity 5.5 pg/ml (0-14)
[2022-05-18 21:21] LABS: Albumin Globulin Ratio 1.2 (0.9-2); Albumin Level 3.8 gm/dl (3.4-5.0); BUN Creatinine Ratio 15.1 (10-20); Bilirubin,Total 0.3 mg/dl (0.2-1.0); Calcium 8.3 mg/dl (8.5-10.1); Creatinine Clr Calc Pharmacy 83.7 ml/min; Est GFR (African American) 99.3 ml/min; Est GFR (Non-African American) 85.7 ml/min; Globulin 3.2 gm/dl (2.5-4.0); Magnesium 1.8 mg/dl (1.7-2.4)
[2022-05-18] MEDS ORDERED: LORazepam 2 MG/1 ML VIAL IV STA (21:54)
[2022-05-18] MEDS ORDERED: POLYETHYLENE (MIRALAX) 17 GM PACK PO PRN (22:44)
[2022-05-18] MEDS ORDERED: ACETAMINOPHEN 325 MG TAB PO PRN (22:44)
[2022-05-18] MEDS ORDERED: LORazepam 1 MG TAB PO PRN (22:47)
[2022-05-18] MEDS ORDERED: GABAPENTIN 1200MG ALCOHOL WITHDRAWAL LOAD PO STA (22:47)
[2022-05-18] MEDS ORDERED: GABAPENTIN 600 MG TAB PO ONE (22:47)
[2022-05-18] MEDS ORDERED: LACTATED RINGER'S 1,000 ML IV SCH (23:00)
[2022-05-18 23:08] LABS: Basophils # (auto) 0.03 K/uL (0-0.2); Basophils % (auto) 0.6 %; Eosinophils # (auto) 0.41 K/uL (0-0.50); Eosinophils % (auto) 8.5 %; Immature Granulocytes # (auto) 0.01 K/uL (0.00-0.02); Immature Granulocytes % (auto) 0.2 %; Lymphocytes # (auto) 2.52 K/uL (1.2-3.4); Lymphocytes % (auto) 52.2 %; Monocytes # (auto) 0.24 K/uL (0.24-0.82); Neutrophils # (auto) 1.62 K/uL (1.4-6.5); Neutrophils % (auto) 33.5 %; RBC Morphology Unremarkable
[2022-05-18] MEDS ORDERED: ZOLPIDEM TARTRATE 5 MG TAB PO PRN (23:53)
--- NOTE | 2022-05-19 00:14 | History & Physical Report ---
Date of Service May 19, 2022 Assessment & Plan (1) Alcohol use disorder: Plan: - drinks up to 8 tall beers daily for at least the past year - apparently is in outpatient rehab with [facility] - interested in further discussions about options for quilting - monitor for withdrawal - Gabapentin taper - ativan prn for persistent withdrawal symptoms - last drink day of presentation - folic acid and thiamine daily - telemetry monitoring (2) Alcohol intoxication: Plan: - currently intoxicated but improving - BAL on admission was 302 - IVF and banana bag (3) Anemia: Plan: - no signs of bleeding - stable - will monitor for now (4) Anxiety: Plan: - has history of such and depression - not on medication at this time - psych consulted for above and mood disorder Plan DVT ppx: lovenox Code Status: Full Code Dispo: telemetry Ariel Bear MD [facility] Medicine Admission and Anticipated Discharge Date Admission Date: 05/18/2022 History of Present Illness Chief Complaint: alcohol cessation Primary Care Provider: Mario Hercules MD The patient is a 37 year old woman with pmh alcohol use disorder, polysubstance use disorder, depression/anxiety, h/o hep C who presented with alcohol intoxication and would like help detoxing. She reports drinking heavily, up to 6-8 large beers per day for the past year at least. She says she last drank about 6 beers today prior to admission and maybe a liquor drink, last drink was a couple hours before presentation. She reports trying to stop drinking on her own but says that she gets shakes, nausea and vomiting and just feels generally terrible, so she starts drinking again. She says she does not think she has ever had a seizure from withdrawals before. She reports being in outpatient rehab at [facility] already and is interested in talking with someone about other options but is not sure about inpatient rehab because of work. She denies any other symptoms of fever or chills, chest pain, shortness of breath, diarrhea, dysuria. She reports some mild diffuse abdominal pain and nausea but no vomiting. In the ED, vitals were significant for HR 100-110s. Labs were significant for hgb 11.9 (was 11 01/2022), BAL 302. She was given a banana bag and Ativan and admitted to medicine. Allergies Allergy/AdvReac Type Severity Reaction Status Date / Time morphine Allergy Severe RASH Verified 05/18/22 21:13 codeine Allergy Intermediate HIVES Verified 05/18/22 21:13 levofloxacin Allergy Intermediate HIVES Verified 05/18/22 21:13 sulfamethoxazole Allergy Intermediate HIVES Verified 05/18/22 21:13 trimethoprim Allergy Intermediate HIVES Verified 05/18/22 21:13 nitrofurantoin Allergy Unknown Unknown Verified 05/18/22 21:13 Penicillins Allergy Unknown AMOXICILLIN Verified 05/18/22 21:13 Quinolones AdvReac Intermediate NEURO SIDE Verified 05/18/22 21:13 EFFECTS Home Medications Medication Instructions Recorded Confirmed Type norethindrone acetate 1.5 See Rx Instructions .Route .COMPLEX 02/03/21 05/18/22 History mg-ethinyl estradiol 30 mcg tablet (Claudette) buprenorphine 8 mg-naloxone 2 mg 2 tab sublingual DAILY 05/18/22 05/18/22 History sublingual tablet Past Med/Surg History Medical History (Updated 05/19/22 @ 00:24 by Ariel Bear MD) Anemia Anxiety Cellulitis Cervical paraspinal muscle spasm History of hepatitis C MDD (major depressive disorder) Panic attack Polysubstance abuse Polysubstance dependence Surgical History H/O hernia repair H/O: section History of section Family History Other Adopted No pertinent family history Social History Smoking Status: Current some day smoker Tobacco Type: E-cigarettes / Vaping Years Smoked: 22; Cigarettes Per Day: 1/2 ppd; Second Hand Exposure: No; Hx Alcohol Use: No Hx Substance Use: Yes Prescribed Medications: Opiates and Sedatives Non- Prescribed Medications Comment: Fentanyl and Xanax abuse Last Used Substance: Unknown Substance Use Type Other:: Pt refuses to answer. Preferred Language: Slovenian Communication Ability: Effective Visual Impairment: No Limitations Enrober Required: No Beliefs That Will Affect Care: None marital status: Single Current Living Situation: Family How many Children do You have: 1 Feels Safe at Home: Yes Assistive Devices: None Review of Systems Review of Systems: All systems reviewed & are unremarkable except as noted in Subjective Physical Exam Constitutional: WD/WN, vitals as above + intoxicated appearing, + obese and + disheveled Eyes: PERRL, conjunctivae normal, anicteric sclerae ENMT: Ears: no hearing impairment and no external ear abnormality Nose: no external nose abnormality Mouth: + dry oral mucous membranes Neck: trachea midline, no thyromegaly Respiratory: normal respiratory effort, lungs clear to auscultation Cardiovascular: Rate/Rhythm: regular rhythm and + tachycardic Heart Sounds: normal S1 and normal S2; no gallop, no murmur and no cardiac rub Gastrointestinal (Abdomen): normal bowel sounds, soft, nontender, no hepatosplenomegaly Musculoskeletal: no cyanosis or clubbing, extremities motor strength 5/5 Skin: no rashes, warm and dry Neurologic: patellar DTR's 2+ bilat, sensation intact and PERRL, EOMI, accommodation nl, no face palsy, no dysarthria Psychiatric: Orientation: alert and oriented x 3 Apperance: + disheveled Eye Contact: + fair eye contact Affect: + anxious affect Mood: + anxious mood Results & Data Results & Data ([facility]) Vital Signs (Past 12 Hours) Vital Signs Temp Pulse Pulse Resp BP BP Pulse Ox 05/19/22 00:04 36.8 C 102 H 19 130/102 H 97 05/18/22 22:30 105 H 18 96 05/18/22 21:48 101 H 22 119/99 95 05/18/22 21:30 118 H 16 95 05/18/22 20:30 107 H 20 95 05/18/22 19:34 109 H 22 117/89 97 05/18/22 18:24 36.8 C 110 H 18 155/83 H 98 O2 Del Method 05/19/22 00:04 Room Air 05/18/22 22:30 Room Air 05/18/22 21:48 Room Air 05/18/22 21:30 Room Air 05/18/22 20:30 Room Air 05/18/22 19:34 Room Air 05/18/22 18:24 Room Air Code Status & VTE Plan Code Status Full Code VTE Prophylaxis Plan VTE Prophylaxis will be ordered: Yes (1) Anemia Anemia type: unspecified type Qualified Code(s): D64.9 - Anemia, unspecified
[2022-05-19] MEDS: GABAPENTIN 600 MG TAB PO SCH ×3 (05:41→21:16)
[2022-05-19 06:56] LABS: Hematocrit (blood only) 34.7 % (34.1-44.9); Hemoglobin 11.7 g/dl (12.0-16.0); Mean Corpuscular Hgb Conc 33.7 g/dL (32.0-36.0); Mean Corpuscular Volume 86.1 fL (80.0-100.0); Mean Platelet Volume 10.1 fL (9.4-12.3); Platelet Count 205 K/uL (130-400); RDW Coefficient of Variation 14.5 % (11.5-14.5); RDW Standard Deviation 45.7 fL (36.4-46.3); Red Blood Count 4.03 M/uL (3.93-5.22)
[2022-05-19 07:14] LABS: Albumin Globulin Ratio 1.2 (0.9-2); Albumin Level 3.5 gm/dl (3.4-5.0); BUN Creatinine Ratio 14.1 (10-20); Bilirubin,Total 0.3 mg/dl (0.2-1.0); Calcium 7.7 mg/dl (8.5-10.1); Creatinine Clr Calc Pharmacy 93.1 ml/min; Est GFR (African American) 111.8 ml/min; Est GFR (Non-African American) 96.4 ml/min; Magnesium 1.8 mg/dl (1.7-2.4); Phosphorus 2.9 mg/dl (2.5-4.9); Potassium 4.3 mmol/L (3.5-5.1); Total Protein 6.5 gm/dl (6.0-8.3)
[2022-05-19 07:25] LABS: Basophils # (auto) 0.02 K/uL (0-0.2); Basophils % (auto) 0.4 %; Eosinophils # (auto) 0.33 K/uL (0-0.50); Eosinophils % (auto) 6.7 %; Immature Granulocytes # (auto) 0.02 K/uL (0.00-0.02); Immature Granulocytes % (auto) 0.4 %; Lymphocytes # (auto) 2.64 K/uL (1.2-3.4); Lymphocytes % (auto) 53.9 %; Monocytes # (auto) 0.29 K/uL (0.24-0.82); Monocytes % (auto) 5.9 %; Neutrophils % (auto) 32.7 %
--- NOTE | 2022-05-19 07:31 | Electrocardiogram Report ---
Test Reason : Blood Pressure : / mmHG Vent. Rate : 109 BPM Atrial Rate : 109 BPM P-R Int : 154 ms QRS Dur : 088 ms QT Int : 316 ms P-R-T Axes : 041 -08 033 degrees QTc Int : 425 ms Sinus tachycardia Poor R wave progression, consider anterior PR vs. lead placement vs. LVH Abnormal ECG Confirmed by Jan Pool ([id number]) on 05/19/2022 7:31:18 AM Referred By: REFERRED SELF Confirmed By:Bryan Pool
[2022-05-19] MEDS ORDERED: LORazepam 1 MG TAB PO PRN ×2 (07:37)
[2022-05-19] MEDS ORDERED: Ativan PO Alcohol Withdrawal--Active Protocol PO PRN (07:37)
[2022-05-19] MEDS: FOLIC ACID 1 MG TAB PO SCH (08:05)
[2022-05-19] MEDS: THIAMINE HCL 100 MG TAB PO SCH (08:05)
[2022-05-19] MEDS: ENOXAPARIN INJ 40 MG/0.4 ML SYR SQ SCH (08:06)
[2022-05-19] MEDS: ONDANSETRON INJ 2 MG/ML 2 ML VIAL IV PRN ×2 (08:09→21:16)
[2022-05-19] MEDS ORDERED: LORazepam 1 MG TAB PO STA (09:08)
[2022-05-19] MEDS: LORazepam 1 MG TAB PO PRN ×3 (09:40→22:25)
--- NOTE | 2022-05-19 11:46 | Hospitalist Progress Note ---
Date of Service May 19, 2022 Assessment & Plan (1) Alcohol use disorder: (2) Alcohol intoxication: Plan: Was intoxicated on presentation BAL on admission was 302 Drinks up to 8 tall beers daily for at least the past year Apparently is in outpatient rehab with [facility] Last drink was on 05/18/22 per patient Continue to monitor and manage withdrawal per protocol AWSS Gabapentin taper Ativan prn Folic acid and thiamine daily (3) Anemia: Plan: No signs of bleeding Stable (4) Anxiety: Plan: Has history of such and depression Not on medication at this time Follow up psych c/s Plan DVT ppx: lovenox Code Status: Full Code Dispo: telemetry Admission and Anticipated Discharge Date Admission Date: May 18, 2022 Subjective Patient seen and examined Reports anxiety, tremors, diaphoresis and nausea earlier which improved with ativan and zofran Reports headache Denies dizziness Denies cough, chest pain, SOB Denies abd pain, diarrhea or constipation. Denies dysuria, freq, urgency, hematuria Review of Systems Review of Systems: All systems reviewed & are unremarkable except as noted in Subjective Physical Exam Constitutional: + well hydrated; no acute distress Eyes: PERRL, conjunctivae normal, anicteric sclerae ENMT: external ear and nose normal, oropharynx normal Respiratory: normal respiratory effort, lungs clear to auscultation Cardiovascular: Rate/Rhythm: regular rhythm and + tachycardic S1 S2 Gastrointestinal (Abdomen): normal bowel sounds, soft, nontender, no hepatosplenomegaly Musculoskeletal: no cyanosis or clubbing, extremities motor strength 5/5 Neurologic: PERRL, EOMI, accommodation nl, no face palsy, no dysarthria +tremors on outstretched palms Psychiatric: A+Ox3, euthymic affect Results & Data Results & Data ([facility]) Vital Signs (Past 12 Hours) Vital Signs Temp Pulse Pulse Pulse Resp BP Pulse Ox 05/19/22 11:16 36.9 C 99 H 19 143/87 H 95 05/19/22 07:37 05/19/22 09:03 36.6 C 111 H 16 137/81 94 05/19/22 07:56 103 H 05/19/22 07:36 36.9 C 95 H 19 127/87 95 05/19/22 02:58 36.5 C 110 H 20 116/65 95 05/19/22 01:34 102 H 05/19/22 01:08 05/19/22 00:55 37.2 C 102 H 22 135/86 96 05/19/22 00:04 36.8 C 102 H 19 130/102 H 97 O2 Del Method 05/19/22 11:16 Room Air 05/19/22 07:37 Room Air 05/19/22 09:03 Room Air 05/19/22 07:56 05/19/22 07:36 Room Air 05/19/22 02:58 Room Air 05/19/22 01:34 05/19/22 01:08 Room Air 05/19/22 00:55 Room Air 05/19/22 00:04 Room Air Laboratory Results Abnormal lab results 05/18/22 05/18/22 05/18/22 Range/Units 20:33 20:33 20:33 Hgb 11.9 L (12.0-16.0) g/dl RDW Std Deviation 47.0 H (36.4-46.3) fL Chloride (98-107) mmol/L Glucose 119 H (70-99(Fasting)) mg/dl Calcium 8.3 L (8.5-10.1) mg/dl Ethyl Alcohol mg/dL 302.8 H (<10.0) mg/dl 05/19/22 05/19/22 Range/Units 06:22 06:22 Hgb 11.7 L (12.0-16.0) g/dl RDW Std Deviation (36.4-46.3) fL Chloride 109 H (98-107) mmol/L Glucose (70-99(Fasting)) mg/dl Calcium 7.7 L (8.5-10.1) mg/dl Ethyl Alcohol mg/dL (<10.0) mg/dl (1) Anemia Anemia type: unspecified type Qualified Code(s): D64.9 - Anemia, unspecified
--- NOTE | 2022-05-19 14:39 | Psychiatric Consultation ---
Date of Consultation May 19, 2022 Impression / Recommendations Impression This is a 37 yo with a history of alcohol use admitted medically. Diagnostically consistent with alcohol use disorder as well as unspecified depression likely a combination of substance-induced as well as MDD, moderate. At this point risk of harm to self and others are low given denial of SI and HI, no access to lethal means, future-oriented with good supports but slightly increased due to substance use with substance use treatment being the most significant modifiable risk factor to reduce acute and chronic risk. They are not interested in residential treatment at this time but are agreeable to continuing with current outpatient services to help with substance use and willing to consider medication assisted treatment. On suboxone currently so cannot take naltrexone. (1) Alcohol use disorder: (2) Depression, unspecified: (3) Insomnia: Plan -Psychiatric liason provided resources substance use services and she plans to continue with [facility] and understands option to discuss increased services with them, will consider AA -Patient is not an imminent danger to self or others and does not meet criteria for involuntary psychiatric commitment -Continue AWSS as well as thiamine and folic acid -Consider starting acamprosate 333mg TID if Cr/renal ok in outpatient setting, not available on hospital formulary -Would reduce trazodone to 300mg qhs given nightmares and goal of increasing sedation (more sedated at lower doses) -Option to try gabapentin 300mg qhs prn after discharge to help with insomnia which she feels is primary driving factor for alcohol use, reviewed risks of respiratory depression in combination with alcohol/suboxone -She has outpt psychiatric follow-up Risk Factors Assessment Male: No : No Do You Have Access To A Gun?: No Mental Health Diagnoses: Yes Substance Use Disorders: Yes Previous Attempt: Yes Hopelessness: No Protective Factors Assessment Employed: Yes Stable Relationships: Yes Good Rapport with Provider: Yes Psych History Identifying Data 37 yo woman with history of alcohol use disorder, opioid use disorder on maintenance suboxone, depression and anxiety admitted medically for supervised alcohol withdrawal. Psychiatry consulted for recommendations for alcohol use disorder. Chief Complaint "Do you think I'll be able to leave tomorrow?". History of Present Illness Ana was admitted for help with alcohol withdrawal given challenges managing the symptoms at home with efforts to cut back. She endorses recently drinking "8 tall boys per day" which she tends to drink for a week and then will pause for a few days then resumed drinking. She reports a history of multiple previous residential substance use admissions and currently engages with weekly outpatient therapy through [facility] and sees a psychiatric nurse practitioner through [facility]. She denies any significant depressive symptoms though on PHQ-9 and scored 10 most prominent symptoms of difficulty with sleep, low energy and feeling like she lets others down with a 0 for question 9. She adamantly denies suicidal ideation. She had 1 prior suicide attempt in her early 20s and was hospitalized at that time. She reports a history of 2 prior inpatient psychiatric admissions last 4 years ago at the [facility]. She is currently on Zoloft 150 mg/day was just started on Geodon 40 mg/day and her trazodone has been increased over time currently at 450 mg/day for insomnia. She cites her major issue as insomnia and feels that she drinks alcohol to cope with difficulty sleeping. He is not interested in residential treatment at this time given that she has tried it many times before and that she does not want to lose her job and this is coming up on her busiest season. She is willing to continue with [facility] and we discussed that they also have groups and more intensive outpatient programming that she could participate in if interested as well as options for AA. She is interested in potentially trying acamprosate as she has never been on this before, reviewed that this is not available on formulary in the hospital but so mething that she could discuss with her psychiatric nurse practitioner or with her primary care doctor. Reviewed that trazodone tends to become less sedating at higher doses and work more on the serotonergic system versus lower doses that tend to be more histaminergic in action and she agrees to decreasing trazodone dose. Discussed that gabapentin can also work well for sleep and she is getting that in the hospital currently and discussed option to receive this on discharge if she found it helpful. She does not want to switch her antipsychotic medication as she does not want to be on something like Seroquel or olanzapine which is more sedating as she knows that then there is a risk of weight gain and she is not interested in this. She has previously tried Abilify and risperidone and gained weight on both of these. She is joined bedside by her boyfriend who also participated in the discussion. Past Psychiatric History Previous Psych History: see HPI Do You Have Access To A Gun?: No Allergies Allergy/AdvReac Type Severity Reaction Status Date / Time morphine Allergy Severe RASH Verified 05/18/22 21:13 codeine Allergy Intermediate HIVES Verified 05/18/22 21:13 levofloxacin Allergy Intermediate HIVES Verified 05/18/22 21:13 sulfamethoxazole Allergy Intermediate HIVES Verified 05/18/22 21:13 trimethoprim Allergy Intermediate HIVES Verified 05/18/22 21:13 nitrofurantoin Allergy Unknown Unknown Verified 05/18/22 21:13 Penicillins Allergy Unknown AMOXICILLIN Verified 05/18/22 21:13 Quinolones AdvReac Intermediate NEURO SIDE Verified 05/18/22 21:13 EFFECTS Home Medications Medication Instructions Recorded Confirmed Type norethindrone acetate 1.5 See Rx Instructions .Route .COMPLEX 02/03/21 05/18/22 History mg-ethinyl estradiol 30 mcg tablet (Claudette) buprenorphine 8 mg-naloxone 2 mg 2 tab sublingual DAILY 05/18/22 05/18/22 History sublingual tablet sertraline 100 mg tablet 100 mg PO DAILY 05/19/22 05/19/22 History sertraline 50 mg tablet 50 mg PO DAILY 05/19/22 05/19/22 History trazodone 150 mg tablet 450 mg PO HS 05/19/22 05/19/22 History Family History adopted, unknown Substance Abuse History h/o IV drug use. see HPI. Currently on suboxone Personal History Born In: [place]. Adopted as an infant. Marital Status: Living w/ Signif. Other Beliefs That Will Affect Care: None History of Legal Problems: denies Psychological Trauma History Comment: hx abuse Patient History Medical History (Updated 05/19/22 @ 16:40 by Eloisa Pratt MD) Anemia Anxiety Cellulitis Cervical paraspinal muscle spasm History of hepatitis C MDD (major depressive disorder) Panic attack Polysubstance abuse Polysubstance dependence Surgical History H/O hernia repair H/O: section History of section Family History Other Adopted No pertinent family history Social History Smoking Status: Current every day smoker Tobacco Type: E-cigarettes / Vaping Years Smoked: 22; Cigarettes Per Day: 1/2 ppd; Second Hand Exposure: No; Hx Alcohol Use: Yes Alcohol type: beer Hx Substance Use: Yes Prescribed Medications: Opiates and Sedatives Non- Prescribed Medications Comment: Fentanyl and Xanax abuse Last Used Substance: Unknown Substance Use Type Other:: Pt refuses to answer. Preferred Language: Polish Communication Ability: Effective Visual Impairment: No Limitations Delivery Department Supervisor Required: No Beliefs That Will Affect Care: None marital status: Single Current Living Situation: Family How many Children do You have: 1 Feels Safe at Home: Yes Safety Concerns: Feels Safe At This Time Assistive Devices: None Physical Exam Psychiatric: Orientation: alert and oriented x 3 Apperance: appropriately dressed and appropriately groomed Eye Contact: good eye contact Motor Behavior: no abnormal motor movements Speech: normal rate/rhythm/volume of speech Affect: + constricted affect Mood: + depressed mood; no anxious mood Thought Process: linear/logical thought process Thought Content: reality based without delusions Suicidal Thoughts: denies suicidal thoughts Homicidal Thoughts: denies homicidal thoughts Hallucinations: no auditory hallucinations and no visual hallucinations Cognition: recent memory grossly intact, remote memory grossly intact, attention grossly intact and language grossly intact Estimated Intelligence: consistent with education level Insight: + fair insight Judgement: + fair judgement Vital Signs (Past 24 Hours): Last Vital Signs Temp 36.9 C 05/19/22 11:16 Pulse 99 H 05/19/22 11:16 Resp 19 05/19/22 11:16 BP 143/87 H 05/19/22 11:16 Pulse Ox 95 05/19/22 11:16 O2 Del Method 05/19/22 11:16 Review of Systems All systems reviewed & are unremarkable except as noted in HPI & below Results & Data ([facility]) Medications Administered Enoxaparin Sodium (Enoxaparin Inj 40 Mg/0.4 Ml Syr) 40 mg SQ Q24H HANNAH Stop: 06/18/22 08:59 Last Admin: 05/19/22 08:06 Dose: 40 mg Documented By: CROW Folic Acid (Folic Acid 1 Mg Tab) 1 mg PO QAM HANNAH Stop: 06/18/22 08:59 Last Admin: 05/19/22 08:05 Dose: 1 mg Documented By: CROW Lorazepam (Lorazepam 1 Mg Tab) 1 mg PO UD PRN; Protocol PRN Reason: EtOH Withdrawal AWSS Score 6,7 Stop: 06/18/22 07:36 Last Admin: 05/19/22 09:40 Dose: 1 mg Documented By: CROW Ondansetron HCl (Ondansetron Inj 2 Mg/Ml 2 Ml Vial) 4 mg IV Q6H PRN PRN Reason: Nausea And Vomiting Stop: 06/18/22 00:15 Last Admin: 05/19/22 08:09 Dose: 4 mg Documented By: CROW Thiamine HCl (Thiamine Hcl 100 Mg Tab) 100 mg PO QAM HANNAH Stop: 06/18/22 08:59 Last Admin: 05/19/22 08:05 Dose: 100 mg Documented By: CROW Zolpidem Tartrate (Zolpidem Tartrate 5 Mg Tab) 5 mg PO HS PRN PRN Reason: Sleep Stop: 06/17/22 23:52 Last Admin: 05/19/22 01:27 Dose: 5 mg Documented By: Coding Level of Care Code 99966 Inpt Consult Level 3 Diagnoses Alcohol use disorder Depression, unspecified F32.A Insomnia G47.00
[2022-05-19] MEDS: SERTRALINE HCL 50 MG TABLET PO SCH (15:46)
[2022-05-19] MEDS ORDERED: traZODone HCL 100 MG TAB PO SCH (21:00)
[2022-05-20] MEDS: GABAPENTIN 600 MG TAB PO SCH ×2 (05:44→14:19)
[2022-05-20 06:40] LABS: Hematocrit (blood only) 34.4 % (34.1-44.9); Hemoglobin 10.9 g/dl (12.0-16.0); Mean Corpuscular Hemoglobin 28.5 pg (25.0-34.0); Mean Corpuscular Hgb Conc 31.7 g/dL (32.0-36.0); Mean Corpuscular Volume 90.1 fL (80.0-100.0); Mean Platelet Volume 10.7 fL (9.4-12.3); Platelet Count 183 K/uL (130-400); RDW Coefficient of Variation 14.1 % (11.5-14.5); RDW Standard Deviation 46.1 fL (36.4-46.3); Red Blood Count 3.82 M/uL (3.93-5.22); White Blood Count 6.56 K/ul (4.8-10.8)
[2022-05-20 07:15] LABS: Calcium 8.2 mg/dl (8.5-10.1); Creatinine Clr Calc Pharmacy 90.3 ml/min; Est GFR (African American) 106.8 ml/min; Est GFR (Non-African American) 92.1 ml/min; Magnesium 1.5 mg/dl (1.7-2.4); Phosphorus 3.2 mg/dl (2.5-4.9); Potassium 3.5 mmol/L (3.5-5.1)
[2022-05-20] MEDS: FOLIC ACID 1 MG TAB PO SCH (10:01)
[2022-05-20] MEDS: ENOXAPARIN INJ 40 MG/0.4 ML SYR SQ SCH (10:01)
[2022-05-20] MEDS: THIAMINE HCL 100 MG TAB PO SCH (10:02)
[2022-05-20] MEDS: SERTRALINE HCL 50 MG TABLET PO SCH (11:00)
--- NOTE | 2022-05-20 11:09 | Hospitalist Progress Note ---
Date of Service May 20, 2022 Assessment & Plan (1) Alcohol use disorder: (2) Alcohol intoxication: Plan: Was intoxicated on presentation BAL on admission was 302 Drinks up to 8 tall beers daily for at least the past year Apparently is in outpatient rehab with [place] Last drink was on 05/18/22 per patient Continue to monitor and manage withdrawal per protocol AWSS Gabapentin taper Ativan prn Folic acid and thiamine daily Hypomagnesemia today. Replete and monitor (3) Anemia: Plan: No signs of bleeding Stable (4) Anxiety: Plan: Has history of such and depression Psych eval and recommendations noted Continue home sertraline 150mg per psych Reduce trazodone to 300mg HS Plan DVT ppx: lovenox Code Status: Full Code Possible dc in 1-2 days depending on clinical improvement Admission and Anticipated Discharge Date Admission Date: May 18, 2022 Subjective Patient seen and examined Reports tremors is significantly improved Reports headache is resolved Denies dizziness Denies cough, chest pain, SOB Denies nausea, abd pain, diarrhea or constipation. Denies dysuria, freq, urgency, hematuria Physical Exam Constitutional: + well hydrated; no acute distress Eyes: PERRL, conjunctivae normal, anicteric sclerae ENMT: external ear and nose normal, oropharynx normal Respiratory: normal respiratory effort, lungs clear to auscultation Cardiovascular: Rate/Rhythm: regular rate and regular rhythm S1 S2 Gastrointestinal (Abdomen): normal bowel sounds, soft, nontender, no hepatosplenomegaly Musculoskeletal: no cyanosis or clubbing, extremities motor strength 5/5 Neurologic: PERRL, EOMI, accommodation nl, no face palsy, no dysarthria No tremors Psychiatric: A+Ox3, euthymic affect Results & Data Results & Data ([facility]) Vital Signs (Past 12 Hours) Vital Signs Temp Pulse Pulse Resp BP Pulse Ox O2 Del Method 05/20/22 07:27 78 05/20/22 06:40 36.9 C 73 18 113/74 95 Room Air 05/20/22 04:18 36.7 C 77 18 126/81 94 Room Air 05/20/22 02:59 37.0 C 104 H 22 133/85 93 Room Air 05/20/22 01:55 36.3 C L 80 18 130/83 94 Room Air 05/20/22 00:08 37.0 C 102 H 20 134/91 96 Room Air 05/20/22 00:07 78 Laboratory Results Abnormal lab results 05/20/22 05/20/22 Range/Units 05:35 05:35 RBC 3.82 L (3.93-5.22) M/uL Hgb 10.9 L (12.0-16.0) g/dl MCHC 31.7 L (32.0-36.0) g/dL Glucose 122 H (70-99(Fasting)) mg/dl Calcium 8.2 L (8.5-10.1) mg/dl Magnesium 1.5 L (1.7-2.4) mg/dl (1) Anemia Anemia type: unspecified type Qualified Code(s): D64.9 - Anemia, unspecified
[2022-05-20] MEDS ORDERED: MAGNESIUM SULFATE / D5W 1 GM/100 ML BAG IV ONE (13:04)
--- NOTE | 2022-05-20 15:54 | Discharge Summary ---
Date of Service May 20, 2022 Admission HPI Per Admitting Provider The patient is a 37 year old woman with pmh alcohol use disorder, polysubstance use disorder, depression/anxiety, h/o hep C who presented with alcohol intoxication and would like help detoxing. She reports drinking heavily, up to 6-8 large beers per day for the past year at least. She says she last drank about 6 beers today prior to admission and maybe a liquor drink, last drink was a couple hours before presentation. She reports trying to stop drinking on her own but says that she gets shakes, nausea and vomiting and just feels generally terrible, so she starts drinking again. She says she does not think she has ever had a seizure from withdrawals before. She reports being in outpatient rehab at [facility] already and is interested in talking with someone about other options but is not sure about inpatient rehab because of work. She denies any other symptoms of fever or chills, chest pain, shortness of breath, diarrhea, dysuria. She reports some mild diffuse abdominal pain and nausea but no vomiting. In the ED, vitals were significant for HR 100-110s. Labs were significant for hgb 11.9 (was 11 01/2022), BAL 302. She was given a banana bag and Ativan and admitted to medicine. Admission Exam Per Admitting Provider Constitutional: WD/WN, vitals as above + intoxicated appearing, + obese and + disheveled Eyes: PERRL, conjunctivae normal, anicteric sclerae ENMT: Ears: no hearing impairment and no external ear abnormality Nose: no external nose abnormality Mouth: + dry oral mucous membranes Neck: trachea midline, no thyromegaly Respiratory: normal respiratory effort, lungs clear to auscultation Cardiovascular: Rate/Rhythm: regular rhythm and + tachycardic Heart Sounds: normal S1 and normal S2; no gallop, no murmur and no cardiac rub Gastrointestinal (Abdomen): normal bowel sounds, soft, nontender, no hepatosplenomegaly Musculoskeletal: no cyanosis or clubbing, extremities motor strength 5/5 Skin: no rashes, warm and dry Neurologic: patellar DTR's 2+ bilat, sensation intact and PERRL, EOMI, accommodation nl, no face palsy, no dysarthria Psychiatric: Orientation: alert and oriented x 3 Apperance: + disheveled Eye Contact: + fair eye c Principal Diagnosis Alcohol intoxication Alcohol withdrawal Discharge Exam Constitutional + well hydrated; no acute distress Eyes PERRL, conjunctivae normal, anicteric sclerae ENMT external ear and nose normal, oropharynx normal Respiratory normal respiratory effort, lungs clear to auscultation Cardiovascular Rate/Rhythm: regular rate and regular rhythm S1 S2 Gastrointestinal (Abdomen) normal bowel sounds, soft, nontender, no hepatosplenomegaly Musculoskeletal no cyanosis or clubbing, extremities motor strength 5/5 Neurologic PERRL, EOMI, accommodation nl, no face palsy, no dysarthria Psychiatric A+Ox3, euthymic affect Discharge Data Allergies Allergy/AdvReac Type Severity Reaction Status Date / Time morphine Allergy Severe RASH Verified 05/18/22 21:13 codeine Allergy Intermediate HIVES Verified 05/18/22 21:13 levofloxacin Allergy Intermediate HIVES Verified 05/18/22 21:13 sulfamethoxazole Allergy Intermediate HIVES Verified 05/18/22 21:13 trimethoprim Allergy Intermediate HIVES Verified 05/18/22 21:13 nitrofurantoin Allergy Unknown Unknown Verified 05/18/22 21:13 Penicillins Allergy Unknown AMOXICILLIN Verified 05/18/22 21:13 Quinolones AdvReac Intermediate NEURO SIDE Verified 05/18/22 21:13 EFFECTS Consultations 05/18/22 22:02 ED Decision to Admit Stat 05/18/22 22:47 Consult Psychiatry Routine Hospital Course (1) Alcohol use disorder: (2) Alcohol intoxication: Was intoxicated on presentation BAL on admission was 302 Drinks up to 8 tall beers daily for at least the past year Apparently is in outpatient rehab with [place] Last drink was on 05/18/22 per patient Treatment was started for alcohol withdrawal. However, today patient decided to leave AMA despite multiple conversations about need for proper medical management of her withdrawal (3) Anemia: No signs of bleeding Stable (4) Anxiety: Has history of such and depression Continue home medication Follow up psych outpatient Total Time Total Time Spent Total Time Spent (In Minutes): 35 Total Time Includes: Examination of the Patient, Discharge Planning, Medication Reconciliation and Other Discharge Plan Discharge Items Patient Disposition: Against Medical Advice Reason For Visit: ALCOHOL WITHDRAWAL Activity: Resume your previous activity Non-emergency contact: Primary Care Provider Follow-up/Referrals: Mario Hercules MD [Primary Care Provider] - Pending Studies at Discharge: No Stand-Alone Forms: My [facility], Smoking Cessation Medications and DC Order Prescriptions: Continued norethindrone ac-eth estradiol [Claudette] 1.5-30 mg-mcg tablet See Rx Instructions .ROUTE .COMPLEX Rx Instructions: 1 tab DAILY FOR 3 WEEKS, THEN OFF FOR 7 DAYS, THEN START A NEW PACK. buprenorphine-naloxone 8-2 mg tablet, sublingual 2 tab SUBLINGUAL DAILY sertraline 100 mg tablet 100 mg PO DAILY sertraline 50 mg tablet 50 mg PO DAILY Changed trazodone 150 mg tablet 300 mg PO HS Qty: 30 0RF Discharge Orders: Left Against Medical Advice (Routine); Ordered 05/20/22 Ordered By: Junie Hagen Admission Data Admit Date/Time: 05/18/22 22:44 Attending Provider: Junie Hagen I. Admit Provider: Ariel Bear Primary Care Provider: Mario Hercules Other Providers: Ariel Bear ; Eloisa Pratt ; Natalia Mancilla ; Ana Franz
[2022-05-21] MEDS ORDERED: GABAPENTIN 600 MG TAB PO SCH
[2022-05-22] MEDS ORDERED: GABAPENTIN 600 MG TAB PO SCH (12:00)
== END 2022-05-20 16:17 | disposition left against medical advice (07) | DRG 894 ==
LOC: ED 17:57 → 2W 22:44

== ENCOUNTER 2024-07-25 03:57 | Inpatient (IN) ==
--- OUTSIDE RECORDS SUMMARY | 2024-07-25 04:02 | External Medical Summary | Continuity of Care Document ---
Author Name Unknown Organization [facility] [address] [facility] [address] [id number] Encounter PSYCHIATRIC FINNBR [id number] Date(s): 07/19/24 - 07/19/24 [facility] [address] [facility] [address] [facility] [address] [facility], [facility] [address] [place] [address] [phone] Encounter Diagnosis Body mass index [BMI] 26.0-26.9, adult(Discharge Diagnosis) - 07/19/24 Anxiety(Discharge Diagnosis) - 07/19/24 Depression(Discharge Diagnosis) - 07/19/24 Bipolar disorder(Discharge Diagnosis) - 07/19/24 Discharge Disposition: Home or Self Care Attending Physician: MD Damian Christopher Allergies, Adverse Reactions, Alerts Substance Criticality Severity Reaction Reaction Severity Status amoxicillin unknown- as infant Active penicillins unknown Active Macrodantin unknown Active Medications No Known Medications Mental Status 07/19/24 Barriers to Learning one year None evide nt Mandatory Health Literacy Documentation Yes Health Literacy Communication Barriers N ever Primary Language Angolan Problem List Condition Confirmation Course Effective Dates Status Health St atus Informant Tobacco user Confirmed Active Diagnosis Diagnosis Type Effective Dates Health Status Clinical Service Informant Depression Discharge Diagnosis 07/19/24 Non-Specified Bipolar disorder Discharge Diagnosis 07/19/24 Non-Specified Anxiety Discharge Diagnosis 07/19/24 Non-Specified Body mass index [BMI] 26.0-26.9, adult Discharge Diagnosis 07/19/24 Non-Specified Vital Signs Most recent to oldest [Reference Range]: 1 Height 158.2 cm (07/19/24 1:13 PM) Patient Weight 66.8 kg (07/19/24 1:13 PM) Body Mass Index 26.69 kg/m2 (07/19/24 1:13 PM) Heart Rate 90 bpm (07/19/24 1:13 PM) Respiratory Rate 18 br/min (07/19/24 1:13 PM) Blood Pressure 110/78mmHg (07/19/24 1:13 PM) Cuff Pulse Pressure 32 mmHg (07/19/24 1:13 PM) Social History Social History Type Response Smoking Status Current every day he tessa smoker Sex Sex Representation Female (finding)
--- NOTE | 2024-07-25 04:13 | Emergency Department Note ---
History of Present Illness General Chief complaint: Detox Request Stated complaint: ALCOHOL DETOX Time Seen by Provider: 07/25/24 03:59 History of Present Illness This 39-year-old female with history of polysubstance abuse presents here requesting detox from alcohol. She states she drinks daily. She has a history of polysubstance abuse also. She denies any recent drug use though. Patient denies chest pain, dyspnea, abdominal pain or any other medical complaints. She is requesting admission for detox. Home Medications Medication Instructions Recorded Confirmed Type norethindrone acetate 1.5 See Rx Instructions .Route .COMPLEX 02/03/21 05/18/22 History mg-ethinyl estradiol 30 mcg tablet (Claudette) buprenorphine 8 mg-naloxone 2 mg 2 tab sublingual DAILY 05/18/22 05/18/22 History sublingual tablet sertraline 100 mg tablet 100 mg PO DAILY 05/19/22 05/19/22 History sertraline 50 mg tablet 50 mg PO DAILY 05/19/22 05/19/22 History trazodone 150 mg tablet 300 mg (2 x 150 mg) PO HS #30 tabs 05/20/22 05/19/22 Rx naproxen 500 mg tablet 500 mg PO TID PRN pain #14 tabs 03/21/24 Rx lidocaine 5 % topical patch 1 patch topical DAILY #15 ea 04/23/24 Rx (Lidoderm) prednisone 20 mg tablet 20 mg PO DAILY #23 tabs 04/23/24 Rx Allergies Allergy/AdvReac Type Severity Reaction Status Date / Time morphine Allergy Severe RASH Verified 05/18/22 21:13 codeine Allergy Intermediate HIVES Verified 05/18/22 21:13 levofloxacin Allergy Intermediate HIVES Verified 05/18/22 21:13 sulfamethoxazole Allergy Intermediate HIVES Verified 05/18/22 21:13 trimethoprim Allergy Intermediate HIVES Verified 05/18/22 21:13 nitrofurantoin Allergy Unknown Unknown Verified 05/18/22 21:13 Penicillins Allergy Unknown AMOXICILLIN Verified 05/18/22 21:13 Quinolones AdvReac Intermediate NEURO SIDE Verified 05/18/22 21:13 EFFECTS Past Med/Surg History Problem List (Updated 07/25/24 @ 04:13 by Zoey Babin PA-C) Alcohol intoxication (Acute) Insomnia Depression, unspecified Alcohol withdrawal syndrome (Acute) Alcohol dependence (Acute) Alcohol use disorder (Acute) DVT prophylaxis Discharge planning issues Wound of right lower extremity Traumatic open wound of right lower leg with infection Fever (Acute) Anemia (Acute) Tobacco abuse disorder (Chronic) Cellulitis of hand (Acute) MDD (major depressive disorder) (Chronic) Polysubstance abuse (Chronic) Cellulitis (Acute) History of hepatitis C (Chronic) Anemia (Chronic) Anxiety (Chronic) Panic attack (Chronic) Cervical paraspinal muscle spasm (Acute) Headache (Acute) Neck pain (Acute) Polysubstance dependence (Chronic) Surgical History History of section H/O hernia repair H/O: section Family History Other Adopted No pertinent family history Social History Smoking Status: Current every day smoker Tobacco Type: Cigarettes and E-cigarettes / Vaping Cigarettes Per Day: 1/2 ppd; Second Hand Exposure: No; Do You Dip or Chew Tobacco: No; Hx Alcohol Use: Yes Alcohol type: beer Hx Substance Use: Yes Prescribed Medications: Opiates and Sedatives Non- Prescribed Medications Comment: Fentanyl and Xanax abuse Last Used Substance: Unknown Substance Use Type Other:: Pt refuses to answer. Preferred Language: Iranian Communication Ability: Effective Visual Impairment: No Limitations Ciaio Counter Molder Required: No Beliefs That Will Affect Care: None marital status: Single Current Living Situation: Family How many Children do You have: 1 Feels Safe at Home: Yes Assistive Devices: None Review of Systems A total of 10 systems reviewed and were otherwise negative Physical Exam Vital Signs Vital Signs - 24 hr 07/25/24 04:00 07/25/24 04:00 07/25/24 04:00 Temperature 36.8 C 36.8 C Temperature Source Oral Oral Pulse Rate 106 H Pulse Rate [Apical] 107 H Pulse Rhythm Regular Pulse Rhythm [Apical] Regular Pulse Strength Normal Pulse Strength [Apical] Normal Respiratory Rate 18 18 Respiratory Effort / Characteristics Non-Labored Spontaneous Non-Labored Spontaneous Respiratory Depth Normal Normal Respiratory Pattern Regular Regular Blood Pressure 131/95 Blood Pressure [Right Arm] 131/95 Blood Pressure Mean 107 Blood Pressure Mean [Right Arm] 107 Blood Pressure Position Sitting Blood Pressure Position [Right Arm] Sitting Pulse Oximetry 98 98 98 Oxygen Delivery Method Room Air Room Air Room Air Sepsis Recent Fever Within 48 Hours No Sepsis New/Unexplained Change in Mental Status N/A Sepsis Action Taken by Nursing No Action Required 07/25/24 04:04 07/25/24 04:14 Temperature Temperature Source Pulse Rate 114 H 106 H Pulse Rate [Apical] Pulse Rhythm Regular Pulse Rhythm [Apical] Pulse Strength Pulse Strength [Apical] Respiratory Rate 18 Respiratory Effort / Characteristics Respiratory Depth Respiratory Pattern Blood Pressure Blood Pressure [Right Arm] Blood Pressure Mean Blood Pressure Mean [Right Arm] Blood Pressure Position Blood Pressure Position [Right Arm] Pulse Oximetry 98 Oxygen Delivery Method Room Air Sepsis Recent Fever Within 48 Hours Sepsis New/Unexplained Change in Mental Status Sepsis Action Taken by Nursing VITALS: Vitals are noted on the nurse's note and reviewed by myself. Vital signs stable. GENERAL: White female with EtOH odor, in no acute distress, nondiaphoretic, well-developed well-nourished. SKIN: Capillary reflex less than 2 seconds. HEENT: Normocephalic. PERRLA. EOMI. Nares patent. Mucous membranes moist. Neck is supple without nuchal rigidity. HEART: Regular rate and rhythm LUNGS: Clear to auscultation bilaterally without wheezes, rales or rhonchi. No retractions or accessory muscle use. ABDOMEN: Positive bowel sounds x 4. Normal tympanic percussion. Soft, nontender, without masses or organomegaly. Arriaga sign negative. No guarding or rebound tenderness. no CVA tenderness MUSCULOSKELETAL: No gross musculoskeletal defects. NEURO: Patient was alert and oriented to person place and time. No focal neurological deficits. Course Administered Medications Discontinued Medications Folic Acid (Folic Acid 1 Mg Tab) 1 mg PO NOW STA Stop: 07/25/24 04:10 Last Admin: 07/25/24 04:36 Dose: 1 mg Documented By: IDD Multivitamins/Minerals (Cerovite Adv Formula Tab) 1 tab PO NOW STA Stop: 07/25/24 04:08 Last Admin: 07/25/24 04:36 Dose: 1 tab Documented By: ZORAN Nicotine (Nicotine 21 Mg/24 Hr Tdsy) 1 patch TD NOW STA Stop: 07/25/24 04:15 Last Admin: 07/25/24 04:35 Dose: 1 patch Documented By: IDHerman Thiamine HCl (Thiamine Hcl 100 Mg Tab) 100 mg PO NOW STA Stop: 07/25/24 04:08 Last Admin: 07/25/24 04:36 Dose: 100 mg Documented By: ZORAN Medical Decision Making Medical Records Attestation: I reviewed the patient's medical records. Home Medications Current Medication List: was personally reviewed by me Laboratory Data Attestation: I reviewed the patient's lab results. 07/25/24 04:20 07/25/24 04:20 Lab Results 07/25/24 Range/Units 04:20 WBC 6.03 (4.8-10.8) K/ul RBC 3.89 L (4.20-5.40) M/uL Hgb 11.6 L (12.0-16.0) g/dl Hct 35.8 L (37.0-47.0) % MCV 92.0 (80.0-100.0) fL MCH 29.8 (25.0-34.0) pg MCHC 32.4 (32.0-36.0) g/dL RDW Std Deviation 46.9 H (36.4-46.3) fL RDW Coeff of Mateo 13.9 (11.5-14.5) % Plt Count 267 (130-400) K/uL MPV 9.5 (9.4-12.4) fL Immature Gran % (Auto) 0.2 % Neut % (Auto) 53.1 % Lymph % (Auto) 34.0 % Hartley % (Auto) 8.0 % Eos % (Auto) 4.0 % Baso % (Auto) 0.7 % Neut # (Auto) 3.21 (1.40-6.50) K/uL Lymph # (Auto) 2.05 (1.20-3.40) K/uL Hartley # (Auto) 0.48 (0.11-0.59) K/uL Eos # (Auto) 0.24 (0.00-0.50) K/uL Baso # (Auto) 0.04 (0.00-0.20) K/uL Immature Gran # (Auto) 0.01 (0.01-0.20) K/uL Sodium 136 (136-145) mmol/L Potassium 3.6 (3.5-5.1) mmol/L Chloride 101 (98-107) mmol/L Carbon Dioxide 26 (21-32) mmol/L Anion Gap 9 (3-11) BUN 7 (6-23) mg/dl Creatinine 0.64 (0.6-1.2) mg/dl Est Cr Clr Drug Dosing 105.9 ml/min eGFR 114.50 BUN/Creatinine Ratio 10.9 (10-20) Glucose 106 H (70-99(Fasting)) mg/dl Calcium 9.1 (8.6-10.3) mg/dl Magnesium 1.7 (1.7-2.4) mg/dl Total Bilirubin 0.3 (0.2-1.0) mg/dl AST 26 (13-39) U/L ALT 14 (7-52) U/L Alkaline Phosphatase 90 (34-104) U/L Total Protein 6.8 (6.0-8.3) gm/dl Albumin 4.2 (3.4-5.0) gm/dl Globulin 2.6 (2.5-4.0) gm/dl Albumin/Globulin Ratio 1.6 (0.9-2) Ethyl Alcohol mg/dL 168.3 H (<10.0) mg/dl MDM Narrative Prior records/ancillary studies reviewed. Triage Nursing notes reviewed. Additional history obtained from nursing. The patient's history was concerning for polysubstance abuse Differential diagnosis: Etiologies such as toxicologic, infection, hypoglycemia, electrolyte abnormalities, cardiac sources, intracerebral event, neurologic, as well as others were entertained. Physical examination: The patient had normal sensorium. No trauma noted. ER treatment provided: Multivitamin, folate, thiamine An order was placed for continuous cardiac monitoring. The monitor shows a rate of 60-100 with a sinus rhythm per my interpretation. P.o. fluids On reassessment the patient was stable and improving. Diagnostic interpretation by me: ECG: ordered for polysubstance abuse The electrocardiogram was negative for pathologic change. There was no QRS widening or interval prolongation. Normal sinus, normal intervals, no acute ST-T wave changes, rate of 99. Impression normal sinus rhythm independently interpreted by myself The labs Independently Interpreted by myself revealed alcohol 168, no worrisome leukocytosis Consultation: A consultation was placed with the hospitalist. The case was discussed and diagnostics were reviewed. The patient was evaluated in the ER for further treatment. This appears to be consistent alcoholism with polysubstance abuse. Patient is requesting detox. Medicine was consulted and case is discussed. She will be evaluated for possible admission. By the evaluation outlined above emergent etiologies such as infection, hypoglycemia, electrolyte abnormalities, cardiac sources, intracerebral event, neurologic,as well as others were deemed relatively unlikely. The pt informed about the findings as listed above. All questions were answered. The chart was completed utilizing [employer] Speech voice recognition software. Grammatical errors, random word insertions, pronoun errors, and incomplete sentences are an occassional consequence of this system due to software limitations, ambient noise, and hardware issues. Any formal questions or concerns about the content, text, or information contained within the body of this dictation should be directly addressed to the physician fish hatchery assistant for clarification. Impression & Plan Tobacco abuse disorder, Polysubstance abuse, Alcohol intoxication, Alcohol use disorder Discharge Plan Visit Data Chief Complaint: Detox Request Stated Complaint: ALCOHOL DETOX ED Provider: Mecca Finley ED Midlevel Provider: Zoey Babin Discharge Problem: Tobacco abuse disorder, Polysubstance abuse, Alcohol intoxication, Alcohol use disorder Patient Disposition: Being Evaluated by Hospitalist Condition: Fair Forms Stand Alone Forms: [facility], Suicide Prevention Resources Prescriptions Prescriptions: No Action norethindrone ac-eth estradiol [Claudette] 1.5-30 mg-mcg tablet See Rx Instructions .ROUTE .COMPLEX Rx Instructions: 1 tab DAILY FOR 3 WEEKS, THEN OFF FOR 7 DAYS, THEN START A NEW PACK. buprenorphine-naloxone 8-2 mg tablet, sublingual 2 tab SUBLINGUAL DAILY sertraline 100 mg tablet 100 mg PO DAILY sertraline 50 mg tablet 50 mg PO DAILY trazodone 150 mg tablet 300 mg PO HS Qty: 30 0RF naproxen 500 mg tablet 500 mg PO TID PRN (Reason: pain) Qty: 14 0RF prednisone 20 mg tablet 20 mg PO DAILY Qty: 23 0RF Rx Instructions: 60mg x 5 days, 50mg x 1, 40mg x 1, 30mg x 1, 20mg x 1, 10mg x 1 lidocaine [Lidoderm] 5 % adhesive patch,medicated 1 patch topical DAILY Qty: 15 0RF Rx Instructions: leave on most painful area for up to 12 hrs Referrals Referrals: Mario Hercules MD [Primary Care Provider] -
[2024-07-25] MEDS: NICOTINE 21 MG/24 HR TDSY TD STA (04:35)
[2024-07-25] MEDS: FOLIC ACID 1 MG TAB PO STA (04:36)
[2024-07-25] MEDS: CEROVITE ADV FORMULA TAB PO STA (04:36)
[2024-07-25] MEDS: THIAMINE HCL 100 MG TAB PO STA (04:36)
[2024-07-25 04:52] LABS: Basophils # (auto) 0.04 K/uL (0.00-0.20); Basophils % (auto) 0.7 %; Eosinophils # (auto) 0.24 K/uL (0.00-0.50); Hematocrit (blood only) 35.8 % (37.0-47.0); Hemoglobin 11.6 g/dl (12.0-16.0); Immature Granulocytes # (auto) 0.01 K/uL (0.01-0.20); Immature Granulocytes % (auto) 0.2 %; Lymphocytes # (auto) 2.05 K/uL (1.20-3.40); Mean Corpuscular Hemoglobin 29.8 pg (25.0-34.0); Mean Corpuscular Hgb Conc 32.4 g/dL (32.0-36.0); Mean Platelet Volume 9.5 fL (9.4-12.4); Monocytes # (auto) 0.48 K/uL (0.11-0.59); Neutrophils # (auto) 3.21 K/uL (1.40-6.50); Neutrophils % (auto) 53.1 %; Platelet Count 267 K/uL (130-400); RDW Coefficient of Variation 13.9 % (11.5-14.5); RDW Standard Deviation 46.9 fL (36.4-46.3); Red Blood Count 3.89 M/uL (4.20-5.40); White Blood Count 6.03 K/ul (4.8-10.8)
[2024-07-25 04:58] LABS: Pregnancy Test, Serum Negative (Negative)
[2024-07-25 04:59] LABS: Albumin Globulin Ratio 1.6 (0.9-2); Albumin Level 4.2 gm/dl (3.4-5.0); BUN Creatinine Ratio 10.9 (10-20); Bilirubin,Total 0.3 mg/dl (0.2-1.0); Calcium 9.1 mg/dl (8.6-10.3); Creatinine Clr Calc Pharmacy 105.9 ml/min; Globulin 2.6 gm/dl (2.5-4.0); Magnesium 1.7 mg/dl (1.7-2.4); Potassium 3.6 mmol/L (3.5-5.1); Total Protein 6.8 gm/dl (6.0-8.3)
--- NOTE | 2024-07-25 05:29 | History & Physical Report ---
Date of Service July 25, 2024 Assessment & Plan (1) Alcohol use disorder: Plan: Alcohol withdrawal chronic anemia, hemoglobin better than baseline likely secondary to hemoconcentration HCV status post Rx inflammatory polyarthritis as per records, currently not on maintenance medications paranoid schizophrenia/anxiety/mood disorder, not on maintenance medications substance abuse on Suboxone Hyperglycemia rule out DM Dermatitis buttock crease ongoing tobacco abuse Medical telemetry ANKITA S, DT precautions Topical steroid trial for buttock crease dermatitis Check hemoglobin A1c Nicotine patch DVT prophylaxis per Lovenox subcu Full code Text document was generated using Sina voice recognition software. It may contain grammatical or spelling errors. Kindly contact undersigned for clarification of any documentation item in question. History of Present Illness Chief Complaint: Detox Primary Care Provider: Mario Hercules MD History obtained from patient and records. . Medical history significant for PFO, chronic anemia (baseline hemoglobin of 10- 11), GERD, HCV status post Rx, inflammatory polyarthritis as per records, paranoid schizophrenia, anxiety/mood disorder, substance abuse on Suboxone, ongoing tobacco/alcohol abuse. Last confinement May 2022 for alcohol withdrawal. Patient left hospital AMA. Patient trying to detox at home the last few days. Could not get comfortable. Usual headache symptoms. Denies chest pain, SOB, abdominal pain. No seizures at home. Patient denies suicidality. Patient also complaining of itchy rash on her buttock crease a few days ago. No fever, no chills. Patient worried about poison ariel dermatitis. Medical History as above Surgical History : section, D&C, ex lap, hernia repair with mesh, knee surgery Family History : Unknown as patient was adopted Personal/Social history : Half pack daily, alcohol abuse, currently unemployed Allergies Allergy/AdvReac Type Severity Reaction Status Date / Time morphine Allergy Severe RASH Verified 05/18/22 21:13 codeine Allergy Intermediate HIVES Verified 05/18/22 21:13 levofloxacin Allergy Intermediate HIVES Verified 05/18/22 21:13 sulfamethoxazole Allergy Intermediate HIVES Verified 05/18/22 21:13 trimethoprim Allergy Intermediate HIVES Verified 05/18/22 21:13 nitrofurantoin Allergy Unknown Unknown Verified 05/18/22 21:13 Penicillins Allergy Unknown AMOXICILLIN Verified 05/18/22 21:13 Quinolones AdvReac Intermediate NEURO SIDE Verified 05/18/22 21:13 EFFECTS Home Medications Medication Instructions Recorded Confirmed Type buprenorphine 8 mg-naloxone 2 mg 2 tab sublingual DAILY 05/18/22 07/25/24 History sublingual tablet Past Med/Surg History Problem List (Updated 07/25/24 @ 04:13 by Zoey Babin PA-C) Alcohol intoxication (Acute) Insomnia Depression, unspecified Alcohol withdrawal syndrome (Acute) Alcohol dependence (Acute) Alcohol use disorder (Acute) DVT prophylaxis Discharge planning issues Wound of right lower extremity Traumatic open wound of right lower leg with infection Fever (Acute) Anemia (Acute) Tobacco abuse disorder (Chronic) Cellulitis of hand (Acute) MDD (major depressive disorder) (Chronic) Polysubstance abuse (Chronic) Cellulitis (Acute) History of hepatitis C (Chronic) Anemia (Chronic) Anxiety (Chronic) Panic attack (Chronic) Cervical paraspinal muscle spasm (Acute) Headache (Acute) Neck pain (Acute) Polysubstance dependence (Chronic) Surgical History History of section H/O hernia repair H/O: section Family History Other Adopted No pertinent family history Social History Smoking Status: Current every day smoker Tobacco Type: Cigarettes and E-cigarettes / Vaping Cigarettes Per Day: 1/2 ppd; Second Hand Exposure: No; Do You Dip or Chew Tobacco: No; Hx Alcohol Use: Yes Alcohol type: beer Hx Substance Use: Yes Prescribed Medications: Opiates and Sedatives Non- Prescribed Medications Comment: Fentanyl and Xanax abuse Last Used Substance: Unknown Substance Use Type Other:: Pt refuses to answer. 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 Required: No Beliefs That Will Affect Care: None marital status: Single Current Living Situation: Family How many Children do You have: 1 Feels Safe at Home: Yes Assistive Devices: None Review of Systems Review of Systems: As per HPI, all other systems reviewed and negative Physical Exam Physical Exam: GENERAL: Anxious, restless, tremulous,, no respiratory distress SKIN: Pallor, warm HEENT: Pale palpebral conjunctivae, no ptosis, dry buccal mucosa NECK : Supple, no tenderness CHEST : CTA, no tenderness HEART : Tachycardic, no obvious murmurs ABDOMEN: Some distention, nontender BUTTOCK : [place] plaques with excoriations, buttock crease EXTREMITIES : Bilateral hand erythema (chronic as per patient), no LE swelling/tenderness, no other conspicuous deformities noted NEUROLOGIC : Coherent, no facial asymmetry, tremulous, no other gross focality Results & Data Results & Data Vital Signs (Past 12 Hours) Vital Signs Temp Pulse Pulse Resp BP BP Pulse Ox 07/25/24 04:14 106 H 18 98 07/25/24 04:04 114 H 07/25/24 04:00 36.8 C 107 H 18 131/95 98 07/25/24 04:00 98 07/25/24 04:00 36.8 C 106 H 18 131/95 98 O2 Del Method 07/25/24 04:14 Room Air 07/25/24 04:04 07/25/24 04:00 Room Air 07/25/24 04:00 Room Air 07/25/24 04:00 Room Air Laboratory Results Laboratory Results WBC 6.03 K/ul (4.8-10.8) 07/25/24 04:20 RBC 3.89 M/uL (4.20-5.40) L 07/25/24 04:20 Hgb 11.6 g/dl (12.0-16.0) L 07/25/24 04:20 Hct 35.8 % (37.0-47.0) L 07/25/24 04:20 MCV 92.0 fL (80.0-100.0) 07/25/24 04:20 MCH 29.8 pg (25.0-34.0) 07/25/24 04:20 MCHC 32.4 g/dL (32.0-36.0) 07/25/24 04:20 RDW Std Deviation 46.9 fL (36.4-46.3) H 07/25/24 04:20 RDW Coeff of Mateo 13.9 % (11.5-14.5) 07/25/24 04:20 Plt Count 267 K/uL (130-400) 07/25/24 04:20 MPV 9.5 fL (9.4-12.4) 07/25/24 04:20 Immature Gran % (Auto) 0.2 % 07/25/24 04:20 Neut % (Auto) 53.1 % 07/25/24 04:20 Lymph % (Auto) 34.0 % 07/25/24 04:20 [place] % (Auto) 8.0 % 07/25/24 04:20 Eos % (Auto) 4.0 % 07/25/24 04:20 Baso % (Auto) 0.7 % 07/25/24 04:20 Neut # (Auto) 3.21 K/uL (1.40-6.50) 07/25/24 04:20 Lymph # (Auto) 2.05 K/uL (1.20-3.40) 07/25/24 04:20 [place] # (Auto) 0.48 K/uL (0.11-0.59) 07/25/24 04:20 Eos # (Auto) 0.24 K/uL (0.00-0.50) 07/25/24 04:20 Baso # (Auto) 0.04 K/uL (0.00-0.20) 07/25/24 04:20 Immature Gran # (Auto) 0.01 K/uL (0.01-0.20) 07/25/24 04:20 Sodium 136 mmol/L (136-145) 07/25/24 04:20 Potassium 3.6 mmol/L (3.5-5.1) 07/25/24 04:20 Chloride 101 mmol/L (98-107) 07/25/24 04:20 Carbon Dioxide 26 mmol/L (21-32) 07/25/24 04:20 Anion Gap 9 (3-11) 07/25/24 04:20 BUN 7 mg/dl (6-23) 07/25/24 04:20 Creatinine 0.64 mg/dl (0.6-1.2) 07/25/24 04:20 Est Cr Clr Drug Dosing 105.9 ml/min 07/25/24 04:20 eGFR 114.50 07/25/24 04:20 BUN/Creatinine Ratio 10.9 (10-20) 07/25/24 04:20 Glucose 106 mg/dl (70-99(Fasting)) H 07/25/24 04:20 Calcium 9.1 mg/dl (8.6-10.3) 07/25/24 04:20 Magnesium 1.7 mg/dl (1.7-2.4) 07/25/24 04:20 Total Bilirubin 0.3 mg/dl (0.2-1.0) 07/25/24 04:20 AST 26 U/L (13-39) 07/25/24 04:20 ALT 14 U/L (7-52) 07/25/24 04:20 Alkaline Phosphatase 90 U/L (34-104) 07/25/24 04:20 Total Protein 6.8 gm/dl (6.0-8.3) 07/25/24 04:20 Albumin 4.2 gm/dl (3.4-5.0) 07/25/24 04:20 Globulin 2.6 gm/dl (2.5-4.0) 07/25/24 04:20 Albumin/Globulin Ratio 1.6 (0.9-2) 07/25/24 04:20 Ethyl Alcohol mg/dL 168.3 mg/dl (<10.0) H 07/25/24 04:20 Diagnostic Findings EKG as per my interpretation : Rate 100, NSR, normal axis, T wave abnormalities septal leads, low voltage
[2024-07-25] MEDS ORDERED: PROMETHAZINE 6.25 MG/50.25 ML BAG IV PRN (05:36)
[2024-07-25] MEDS ORDERED: oxyCODONE HCL IR 5 MG TAB (IMMEDIATE RELEASE) PO PRN (05:36)
[2024-07-25] MEDS: POTASSIUM CHLORIDE CRTAB 20 MEQ TABCR PO STA (05:40)
[2024-07-25] MEDS: MAGNESIUM SULFATE / D5W 1 GM/100 ML BAG IV ONE (05:40)
[2024-07-25] MEDS: NSS + 20MEQ KCL 20 MEQ/1,000 ML BAG IV ONE (05:47)
[2024-07-25] MEDS ORDERED: LORazepam 2 MG/1 ML VIAL IV PRN ×2 (05:59)
[2024-07-25] MEDS ORDERED: Ativan IV Alcohol Withdrawal--Active Protocol IV PRN (05:59)
[2024-07-25] MEDS ORDERED: GABAPENTIN 1200MG ALCOHOL WITHDRAWAL LOAD PO STA (05:59)
[2024-07-25 06:10] LABS: Appearance Urine Clear (Clear); Bacteria Urine Automated 4+ (None Seen); Bilirubin Urine Negative (Negative); Blood Urine Negative (Negative); Cast Urine Automated 0-2 /lpf (0-2); Color Urine Yellow; Glucose Urine UA Negative (Negative); Ketones Urine Negative (Negative); Leukocyte Esterase Urine 1+ (Negative); Nitrite Urine Positive (Negative); Protein Urine Negative (Negative); RBC Urine Automated 0-2 /hpf (0-2); Specific Gravity Urine 1.005 (1.000-1.030); Urobilinogen Urine Negative (Negative)
[2024-07-25] MEDS: cloNIDine HCL 0.1 MG TAB PO ONE (06:21)
[2024-07-25] MEDS: LORATADINE 10 MG TAB PO ONE (06:21)
[2024-07-25] MEDS: GABAPENTIN 600 MG TAB PO ONE (06:21)
[2024-07-25 06:27] LABS: Amphetamines+Metham, Urine Neg (Neg); Barbiturates, Urine Neg (Neg); Benzodiazepine, Urine Neg (Neg); Cocaine, Urine Neg (Neg); Fentanyl, Urine Neg (Neg); MDMA (Ecstacy), Urine Neg (Neg); Marijuana, Urine Neg (Neg); Methadone, Urine Neg (Neg); Opiate, Urine Neg (Neg); Phencyclidine, Urine Neg (Neg)
[2024-07-25] MEDS: LORazepam 2 MG/1 ML VIAL IV PRN (06:29)
[2024-07-25 07:39] LABS: Estimated Average Glucose 103 mg/dl; Hemoglobin A1C 5.2 % (4.5-5.6)
[2024-07-25] MEDS: ENOXAPARIN INJ 40 MG/0.4 ML SYR SQ SCH (09:06)
[2024-07-25] MEDS: BUPRENORPHINE/NALOXONE 8/2 MG TAB SL SCH (09:07)
[2024-07-25] MEDS: hydrOXYzine HCl 10 MG TAB PO PRN (10:46)
[2024-07-25] MEDS: LORazepam 0.5 MG TAB PO STA (11:39)
--- NOTE | 2024-07-25 11:57 | XRay Report ---
XR chest 1V portable CLINICAL HISTORY: shortness of breath, etoh withdrawal COMPARISON STUDY: Chest CT May 22, 2018. Chest radiograph April 04, 2021. FINDINGS: Lung volumes are normal. There are minimal bibasilar opacities. There is no pneumothorax or pleural effusion. Cardiac size is normal. Mediastinal contours are normal. There is no evidence for pulmonary edema. IMPRESSION: Minimal bibasilar opacities. Atelectasis is favored over an infectious process. ACT 112: Negative or not required by law. Electronically signed by: Ronen Arias M.D. 07/25/2024 11:56 AM
[2024-07-25] MEDS: CLOBETASOL PROPIONATE 0.05% CREAM 15 GM TUBE EXT SCH (12:06)
[2024-07-25] MEDS: cefTRIAXone SODIUM 1,000 MG/50 ML BAG IV SCH (13:14)
[2024-07-25] MEDS: SODIUM CHLORIDE 0.9% 1,000 ML IV ONE (13:14)
[2024-07-25] MEDS: ACETAMINOPHEN 325 MG TAB PO PRN (15:53)
[2024-07-25] MEDS: GABAPENTIN 600 MG TAB PO STA (15:53)
[2024-07-25] MEDS: GABAPENTIN 600 MG TAB PO SCH (15:54)
[2024-07-25] MEDS ORDERED: GABAPENTIN 600 MG TAB PO SCH (18:00)
[2024-07-26] MEDS: GABAPENTIN 600 MG TAB PO SCH (02:39)
[2024-07-26] MEDS: hydrOXYzine HCl 10 MG TAB PO STA (06:29)
[2024-07-26 08:53] LABS: Basophils # (auto) 0.02 K/uL (0.00-0.20); Basophils % (auto) 0.5 %; Eosinophils % (auto) 4.7 %; Hematocrit (blood only) 34.9 % (37.0-47.0); Hemoglobin 11.4 g/dl (12.0-16.0); Immature Granulocytes # (auto) 0.02 K/uL (0.01-0.20); Immature Granulocytes % (auto) 0.5 %; Lymphocytes # (auto) 1.63 K/uL (1.20-3.40); Lymphocytes % (auto) 38.3 %; Mean Corpuscular Hemoglobin 30.2 pg (25.0-34.0); Mean Corpuscular Hgb Conc 32.7 g/dL (32.0-36.0); Mean Corpuscular Volume 92.3 fL (80.0-100.0); Mean Platelet Volume 9.9 fL (9.4-12.4); Monocytes # (auto) 0.26 K/uL (0.11-0.59); Monocytes % (auto) 6.1 %; Neutrophils # (auto) 2.13 K/uL (1.40-6.50); Neutrophils % (auto) 49.9 %; Platelet Count 209 K/uL (130-400); RDW Coefficient of Variation 13.5 % (11.5-14.5); RDW Standard Deviation 46.4 fL (36.4-46.3); Red Blood Count 3.78 M/uL (4.20-5.40); White Blood Count 4.26 K/ul (4.8-10.8)
[2024-07-26 09:07] LABS: BUN Creatinine Ratio 15.9 (10-20); Calcium 8.9 mg/dl (8.6-10.3); Creatinine Clr Calc Pharmacy 98.2 ml/min; Magnesium 1.7 mg/dl (1.7-2.4); Phosphorus 3.8 mg/dl (2.5-4.9); Potassium 4.6 mmol/L (3.5-5.1)
[2024-07-26] MEDS: MULTIVITAMIN TAB PO SCH (09:15)
[2024-07-26] MEDS: FOLIC ACID 1 MG TAB PO SCH (09:15)
[2024-07-26] MEDS: THIAMINE HCL 100 MG TAB PO SCH (09:15)
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
[2024-07-26] MEDS: BUPRENORPHINE/NALOXONE 8/2 MG TAB SL SCH (17:08)
[2024-07-27] MEDS: GABAPENTIN 600 MG TAB PO SCH (05:43)
[2024-07-27] MEDS: cephALEXin 500 MG CAP PO SCH (09:52)
--- NOTE | 2024-07-27 10:45 | Electrocardiogram Report ---
Test Reason : Blood Pressure : */* mmHG Vent. Rate : 99 BPM Atrial Rate : 99 BPM P-R Int : 144 ms QRS Dur : 84 ms QT Int : 340 ms P-R-T Axes : 51 16 33 degrees QTcB Int : 436 ms Normal sinus rhythm Low voltage QRS Cannot rule out Anterior infarct (cited on or before 18-May-2022) Abnormal ECG When compared with ECG of 18-May-2022 19:33, No significant change was found Confirmed by Huber Jennings ([id number]) on 07/27/2024 10:45:04 AM Referred By: REFERRED SELF Confirmed By: Huber Jennings
--- NOTE | 2024-07-27 11:25 | Electrocardiogram Report ---
Test Reason : Blood Pressure : */* mmHG Vent. Rate : 81 BPM Atrial Rate : 81 BPM P-R Int : 148 ms QRS Dur : 82 ms QT Int : 386 ms P-R-T Axes : 50 14 29 degrees QTcB Int : 448 ms Poor data quality, interpretation may be adversely affected Sinus rhythm Low voltage QRS Borderline ECG When compared with ECG of 25-Jul-2024 04:31, (unconfirmed) No significant change Confirmed by Huber Jennings ([id number]) on 07/27/2024 11:24:53 AM Referred By: REFERRED SELF Confirmed By: Huber Jennings
[2024-07-27 12:09] LABS: Chlam trach RNA(Genit,Ureth,Ur Not Detected (NotDetected); GC(Neis gon)RNA(Genit,Ureth,Ur Not Detected (NotDetected)
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
[2024-07-27] MEDS ORDERED: OLANZAPINE 2.5 MG TAB PO PRN (13:43)
[2024-07-27 15:00] VITALS: BP 114/77; PULSE 92; RESP 16; TEMP 98.4; O2SAT 98
[2024-07-27] MEDS: NICOTINE 14 MG/24 HR PATCH TD SCH (15:31)
--- NOTE | 2024-07-27 16:47 | Discharge Summary ---
Discharge Summary Date of Service July 27, 2024 Principal Dx & Hospital Course #1 = Principal Diagnosis (1) Alcohol use disorder: (2) Alcohol withdrawal syndrome: (3) E. coli UTI: (4) Alcohol intoxication: (5) Inflammatory polyarthritis: (6) Bipolar 1 disorder, mixed: (7) Paranoia: Plan Patient presented to the hospital emergency department with known alcohol dependence disorder and attempting to try and withdrawal at home. Due to severe symptoms presented to the ER. Patient was admitted to hospital for alcohol withdrawal syndrome. She was treated with a gabapentin taper. She did extremely well with this and had minimal symptoms requiring minimal amounts of as needed benzodiazepines. On further interviews, patient was displaying signs of paranoia. She was highly suspicious of her phones listening into her conversations. Gave history of people stalking her, invading her home, etc. Psychiatry consultation was obtained. She seen multiple times by the psychiatric liaison and evaluated by psychiatrist. She does not meet criteria for 302 admission for her mental health disorder. She denied having paranoid schizophrenia despite her problem list indicating this. She did admit to having some bipolar disorder in the past. She was not willing to voluntarily admit herself to the behavioral health unit. Through psychiatry and psychiatry liaison she contracted for safety she did not have any suicidal or homicidal ideation. She was able to state that she had a safe place to go live at discharge. She was not having any significant withdrawal symptoms at this time. We did discuss trying to address her alcohol dependence. Not a candidate for ReVia with the Suboxone treatment. Will try acamprosate. Try as needed BuSpar for some of her anxiety until she can follow-up with her outpatient providers. Trial of melatonin to help with some of her insomnia. Patient also was treated for E. coli UTI. Initially with Rocephin then transition to Keflex based on sensitivities. Given a prescription to complete a course of this at the time of discharge. Patient had requested STI screening. Urine chlamydia and gonorrhea were negative, HIV is pending. She was given resources in the community to assist her with her alcohol dependence with counseling services, Alcoholics Anonymous etc. She reports that she will pursue these independently. Notes For Next Care Provider Follow-up HIV testing Continue to encourage patient to abstain from all alcohol Medication Changes From Visit BuSpar added as needed Acamprosate Suboxone twice daily, patient reports this is how she is taking it at home prior to admission. Admission HPI Per Admitting Provider History obtained from patient and records. . Medical history significant for PFO, chronic anemia (baseline hemoglobin of 10- 11), GERD, HCV status post Rx, inflammatory polyarthritis as per records, paranoid schizophrenia, anxiety/mood disorder, substance abuse on Suboxone, ongoing tobacco/alcohol abuse. Last confinement May 2022 for alcohol withdrawal. Patient left hospital AMA. Patient trying to detox at home the last few days. Could not get comfortable. Usual headache symptoms. Denies chest pain, SOB, abdominal pain. No seizures at home. Patient denies suicidality. Patient also complaining of itchy rash on her buttock crease a few days ago. No fever, no chills. Patient worried about poison ariel dermatitis. Medical History as above Surgical History : section, D&C, ex lap, hernia repair with mesh, knee surgery Family History : Unknown as patient was adopted Personal/Social history : Half pack daily, alcohol abuse, currently unemployed Admission Exam Per Admitting Provider See H&P Discharge Exam Constitutional: Alert HEENT: Mucous membranes moist. Lungs: Clear to auscultation, decreased, no wheezes rales or rhonchi CV: S1-S2, regular Abdomen: Soft, nontender, nondistended Extremities: No significant edema Neuro: No focal deficits Psych: Anxious, hyperactive Updated Medication List Medication Instructions Recorded Confirmed Type buprenorphine 8 mg-naloxone 2 mg 2 tab sublingual DAILY 05/18/22 07/25/24 History sublingual tablet acamprosate 333 mg tablet,delayed 333 mg PO BID #60 tabs 07/27/24 Rx release buspirone 7.5 mg tablet 7.5 mg PO TID PRN anxiety #30 tabs 07/27/24 Rx cephalexin 500 mg capsule 500 mg PO TID 2 days #6 caps 07/27/24 Rx melatonin 10 mg capsule 10 mg PO HS #30 caps 07/27/24 Rx Hospital Stay Data Consultations 07/25/24 05:20 ED Decision to Admit Stat 07/26/24 12:32 Consult Psychiatry Routine Diagnostic Imagining Performed Reviewed imaging, laboratory and diagnostic studies. Pertinent findings as below. Urine chlamydia and gonorrhea negative HIV pending Hemoglobin 11.4 Platelets 209 Electrolytes stable Creatinine 0.69 Magnesium 1.7 Pending Results Patient Have Any Pending Studies at Discharge: Yes Discharge Instructions Given to Patient (Per Discharging Provider) Strongly recommend you stop all alcohol and beer Strongly recommend you utilize alcohol dependence services available to you in the community. [facility], etc. You are not a candidate for ReVia/naltrexone due to the fact that you are on Suboxone. We will start you on acamprosate Total Time Total Time Spent Total Time Spent (In Minutes): 49
[2024-07-27] MEDS: LORazepam 1 MG TAB PO STA (16:53)
[2024-07-27] MEDS ORDERED: OLANZapine 10 MG TAB PO SCH (21:00)
[2024-07-28] MEDS ORDERED: GABAPENTIN 600 MG TAB PO SCH (18:00)
[2024-07-30 17:43] LABS: HIV 1 RNA PCR Copies/ML Not Detected Copies/mL; HIV-1 RNA Log Copies/mL Not Detected Log cps/mL
== END 2024-07-27 05:15 | disposition home or self-care (01) | DRG 897 ==
LOC: ED 03:57 → SUATTDRO 05:34 → EDINP 05:34 → 2N 10:27

== ENCOUNTER 2024-09-09 21:52 | Inpatient (IN) ==
--- NOTE | 2024-09-09 22:55 | Emergency Department Note ---
Impression & Plan Paranoid schizophrenia, chronic condition with acute exacerbation, Alcohol intoxication ED Provider Note HISTORY OF PRESENT ILLNESS: Patient is a 39-year-old female presenting with auditory hallucinations. Patient presents with police. She called 911 herself because she "wanted help." On police arrival to the patient's house, they state that the patient was found to be drinking alcohol and talking about the meaning of life. Patient let the police see her journal and they report that "as of 08/25 she was having clear stream of consciousness in the journal, but as of a few days ago her handwriting is illegible and makes no sense." Patient states that she has "racing thoughts because I have all of these ideas." She states that she has not slept in days. She denies any suicidal or homicidal ideation. She reports "I love my life and I have so many incredible ideas but no one in my corner." She "drank a lot of alcohol today." She reports that "I have not done methamphetamine in a while." ROS: as above PHYSICAL EXAM: Constitutional: Patient appears in no acute distress. Clinically intoxicated with slurring of speech. HENT: Head: Normocephalic and atraumatic. Eyes: EOMI, PERRL Mouth/Throat: Mucous membranes moist. Neck: Trachea midline. Neck supple. Musculoskeletal: No edema, tenderness or deformity noted. Skin: Warm and dry. No rash, erythema, pallor or cyanosis Psychiatric: Patient appears poorly groomed. Makes fair eye contact. Speech is pressured with elevated volume and rate. Thought process is tangential and difficult to redirect. Neurological: Alert and keenly responsive. CN II-XII grossly intact, moving all extremities equally and fully. MDM: - Vitals signs showed tachycardia. - History obtained via patient and police, given patient's tangential thinking. History as above. - Chronic conditions affecting care: Paranoid schizophrenia; alcohol abuse - Differential diagnoses include, but are not limited to: drug intoxication; alcohol intoxication; UTI; acute lashae - External medical records reviewed. Discharge summary dated 07/27/2024 was reviewed. Patient was admitted for alcohol detox. - Patient was seen in conjunction with behavioral health director of casework services. Patient has significant tangential thinking and is difficult to redirect. She is clearly visibly intoxicated. - Laboratory workup interpreted by myself showed normal WBC; stable electrolytes; normal TSH; negative acetaminophen/salicylate level; elevated alcohol (352) - Viral respiratory panel negative - UA and UDS ordered, but patient has not given a urine sample yet -Patient has a history of alcohol abuse and was admitted in early July 2024 for alcohol detox. However, she started drinking again. She drinks up to 1/5 of liquor a day. She states that "I drink a lot today." She does not have any evidence of alcohol withdrawal at this point. However, when she is clinically sober she will likely be in withdrawal. Patient cannot be evaluated by psychiatry until she is clinically sober. Will admit to hospital service for medical detox during her acute detox phase and have psychiatry on as a consult. - Discussion was had with director of casework services about patient's case and need for admission - Hospitalist, Dr. Caraballo, consulted for admission - Patient admitted to [facility] service for further evaluation and management. ASSESSMENT AND PLAN: Diagnosis: Alcohol intoxication; paranoid schizophrenia Plan: admit Past Med/Surg History Problem List (Updated 09/10/24 @ 01:38 by Fara Hebert MD) Alcohol intoxication (Acute) Polysubstance use disorder Paranoia Bipolar 1 disorder, mixed E. coli UTI Inflammatory polyarthritis Paranoid schizophrenia, chronic condition with acute exacerbation (Acute) Alcohol intoxication (Acute) Insomnia Depression, unspecified Alcohol withdrawal syndrome (Acute) Alcohol dependence (Acute) Alcohol use disorder (Acute) DVT prophylaxis Discharge planning issues Wound of right lower extremity Traumatic open wound of right lower leg with infection Fever (Acute) Anemia (Acute) Tobacco abuse disorder (Chronic) Cellulitis of hand (Acute) MDD (major depressive disorder) (Chronic) Polysubstance abuse (Chronic) Cellulitis (Acute) History of hepatitis C (Chronic) Anemia (Chronic) Anxiety (Chronic) Panic attack (Chronic) Cervical paraspinal muscle spasm (Acute) Headache (Acute) Neck pain (Acute) Polysubstance dependence (Chronic) Surgical History History of section H/O hernia repair H/O: section Family History Other Adopted No pertinent family history Social History Smoking Status: Current every day smoker Tobacco Type: E-cigarettes / Vaping Cigarettes Per Day: 10; Second Hand Exposure: Yes; Do You Dip or Chew Tobacco: No; Hx Alcohol Use: Yes Alcohol type: beer and hard liquor Hx Substance Use: No Preferred Language: Upper Sorbian Communication Ability: Effective Visual Impairment: No Limitations Gliding Pilot Instructor Required: No Beliefs That Will Affect Care: None marital status: Single Current Living Situation: Alone How many Children do You have: 1 Feels Safe at Home: Yes Assistive Devices: None Allergies Allergies Allergy/AdvReac Type Severity Reaction Status Date / Time morphine Allergy Severe RASH Verified 05/18/22 21:13 codeine Allergy Intermediate HIVES Verified 05/18/22 21:13 levofloxacin Allergy Intermediate HIVES Verified 05/18/22 21:13 sulfamethoxazole Allergy Intermediate HIVES Verified 05/18/22 21:13 trimethoprim Allergy Intermediate HIVES Verified 05/18/22 21:13 nitrofurantoin Allergy Unknown Unknown Verified 05/18/22 21:13 Penicillins Allergy Unknown AMOXICILLIN Verified 05/18/22 21:13 Quinolones AdvReac Intermediate NEURO SIDE Verified 05/18/22 21:13 EFFECTS Home Meds Previous Rx's Medication Instructions Recorded acamprosate 333 mg tablet,delayed 333 mg PO BID #60 tabs 07/27/24 release buprenorphine 8 mg-naloxone 2 mg 1 tab sublingual BID17 #0 tabs 07/27/24 sublingual tablet buspirone 7.5 mg tablet 7.5 mg PO TID PRN anxiety #30 tabs 07/27/24 melatonin 10 mg capsule 10 mg PO HS #30 caps 07/27/24 Results & Data (ED) Vital Signs Vital Signs - 24 hr 09/09/24 22:43 Temperature 37.1 C Temperature Source Oral Pulse Rate 93 H Respiratory Rate 18 Respiratory Effort / Characteristics Non-Labored Respiratory Depth Normal Blood Pressure 122/83 Blood Pressure Mean 96 Pulse Oximetry 95 Oxygen Delivery Method Room Air Sepsis Recent Fever Within 48 Hours No Sepsis New/Unexplained Change in Mental Status N/A Sepsis Action Taken by Nursing No Action Required Laboratory Data 09/09/24 23:35 09/09/24 23:35 Lab Results 09/09/24 09/09/24 Range/Units 22:50 23:35 WBC 8.49 (4.8-10.8) K/ul RBC 4.07 L (4.20-5.40) M/uL Hgb 12.1 (12.0-16.0) g/dl Hct 35.9 L (37.0-47.0) % MCV 88.2 (80.0-100.0) fL MCH 29.7 (25.0-34.0) pg MCHC 33.7 (32.0-36.0) g/dL RDW Std Deviation 42.8 (36.4-46.3) fL RDW Coeff of Mateo 13.2 (11.5-14.5) % Plt Count 307 (130-400) K/uL MPV 9.9 (9.4-12.4) fL Immature Gran % (Auto) 0.2 % Neut % (Auto) 45.1 % Lymph % (Auto) 46.5 % [place] % (Auto) 3.5 % Eos % (Auto) 4.1 % Baso % (Auto) 0.6 % Neut # (Auto) 3.82 (1.40-6.50) K/uL Lymph # (Auto) 3.95 H (1.20-3.40) K/uL [place] # (Auto) 0.30 (0.11-0.59) K/uL Eos # (Auto) 0.35 (0.00-0.50) K/uL Baso # (Auto) 0.05 (0.00-0.20) K/uL Immature Gran # (Auto) 0.02 (0.01-0.20) K/uL Sodium 142 (136-145) mmol/L Potassium 3.9 (3.5-5.1) mmol/L Chloride 111 H (98-107) mmol/L Carbon Dioxide 21 (21-32) mmol/L Anion Gap 10 (3-11) BUN 11 (6-23) mg/dl Creatinine 0.78 (0.6-1.2) mg/dl Est Cr Clr Drug Dosing 84.8 ml/min eGFR 98.41 BUN/Creatinine Ratio 14.1 (10-20) Glucose 103 H (70-99(Fasting)) mg/dl Calcium 8.2 L (8.6-10.3) mg/dl Total Bilirubin 0.3 (0.2-1.0) mg/dl AST 23 (13-39) U/L ALT 12 (7-52) U/L Alkaline Phosphatase 87 (34-104) U/L Total Protein 7.4 (6.0-8.3) gm/dl Albumin 4.2 (3.4-5.0) gm/dl Globulin 3.2 (2.5-4.0) gm/dl Albumin/Globulin Ratio 1.3 (0.9-2) TSH 1.833 (0.300-4.500) uIu/ml Salicylates < 3.0 L (3.0-30) mg/dl Acetaminophen < 3 L (10-30) ug/ml Ethyl Alcohol mg/dL 352.0 H (<10.0) mg/dl Adenovirus (PCR) Not Detected (NotDetected) B. pertussis DNA (PCR) Not Detected (NotDetected) B.parapertussis DNA PCR Not Detected (NotDetected) C. pneumoniae DNA (PCR) Not Detected (NotDetected) Coronavirus OC43 (PCR) Not Detected (NotDetected) Coronavirus HKU1 (PCR) Not Detected (NotDetected) Coronavirus 229E (PCR) Not Detected (NotDetected) SARS-CoV-2 (PCR) Not Detected (NotDetected) Coronavirus NL63 (PCR) Not Detected (NotDetected) Human Metapneumovir PCR Not Detected (NotDetected) Influenza Type A (PCR) Not Detected (NotDetected) Influenza Type B (PCR) Not Detected (NotDetected) M. pneumoniae (PCR) Not Detected (NotDetected) Parainfluenza 1 (PCR) Not Detected (NotDetected) Parainfluenza 2 (PCR) Not Detected (NotDetected) Parainfluenza 3 (PCR) Not Detected (NotDetected) Parainfluenza 4 (PCR) Not Detected (NotDetected) RSV (PCR) Not Detected (NotDetected) Entero/Rhino (PCR) Not Detected (NotDetected) Discharge Plan Visit Data Chief Complaint: Mental Health Evaluation Stated Complaint: 201 ED Provider: Fara Hebert Discharge Problem: Paranoid schizophrenia, chronic condition with acute exacerbation, Alcohol intoxication Forms Stand Alone Forms: [facility], Suicide Prevention Resources Prescriptions Prescriptions: No Action melatonin 10 mg capsule 10 mg PO HS Qty: 30 0RF buspirone 7.5 mg tablet 7.5 mg PO TID PRN (Reason: anxiety) Qty: 30 0RF buprenorphine-naloxone 8-2 mg tablet, sublingual 1 tab SUBLINGUAL BID17 Qty: 0 0RF acamprosate 333 mg tablet,delayed release (DR/EC) 333 mg PO BID Qty: 60 0RF Rx Instructions: administer with mid-day and evening meals Referrals Referrals: PCP,NO [Primary Care Provider] -
[2024-09-09 23:58] LABS: Basophils # (auto) 0.05 K/uL (0.00-0.20); Basophils % (auto) 0.6 %; Eosinophils # (auto) 0.35 K/uL (0.00-0.50); Eosinophils % (auto) 4.1 %; Hematocrit (blood only) 35.9 % (37.0-47.0); Hemoglobin 12.1 g/dl (12.0-16.0); Immature Granulocytes # (auto) 0.02 K/uL (0.01-0.20); Immature Granulocytes % (auto) 0.2 %; Lymphocytes # (auto) 3.95 K/uL (1.20-3.40); Lymphocytes % (auto) 46.5 %; Mean Corpuscular Hemoglobin 29.7 pg (25.0-34.0); Mean Corpuscular Hgb Conc 33.7 g/dL (32.0-36.0); Mean Corpuscular Volume 88.2 fL (80.0-100.0); Mean Platelet Volume 9.9 fL (9.4-12.4); Monocytes % (auto) 3.5 %; Neutrophils # (auto) 3.82 K/uL (1.40-6.50); Neutrophils % (auto) 45.1 %; Platelet Count 307 K/uL (130-400); RDW Coefficient of Variation 13.2 % (11.5-14.5); RDW Standard Deviation 42.8 fL (36.4-46.3); Red Blood Count 4.07 M/uL (4.20-5.40); White Blood Count 8.49 K/ul (4.8-10.8)
[2024-09-10 00:05] LABS: Adenovirus PCR Not Detected (NotDetected); Bordetella parapertussis PCR Not Detected (NotDetected); Bordetella pertussis PCR Not Detected (NotDetected); Chlamydia pneumoniae PCR Not Detected (NotDetected); Coronavirus 229E PCR Not Detected (NotDetected); Coronavirus CoV-2 (COVID19)PCR Not Detected (NotDetected); Coronavirus HKU1 PCR Not Detected (NotDetected); Coronavirus NL63 PCR Not Detected (NotDetected); Coronavirus OC43PCR Not Detected (NotDetected); Human Metapneumovirus PCR Not Detected (NotDetected); Influenza A PCR Not Detected (NotDetected); Influenza B PCR Not Detected (NotDetected); Mycoplasma pneumoniae PCR Not Detected (NotDetected); Parainfluenza Virus 1 PCR Not Detected (NotDetected); Parainfluenza Virus 2 PCR Not Detected (NotDetected); Parainfluenza Virus 3 PCR Not Detected (NotDetected); Parainfluenza Virus 4 PCR Not Detected (NotDetected); Respiratory Syncytial VirusPCR Not Detected (NotDetected); Rhinovirus/Enterovirus PCR Not Detected (NotDetected)
[2024-09-10 00:23] LABS: Albumin Globulin Ratio 1.3 (0.9-2); Albumin Level 4.2 gm/dl (3.4-5.0); BUN Creatinine Ratio 14.1 (10-20); Bilirubin,Total 0.3 mg/dl (0.2-1.0); Calcium 8.2 mg/dl (8.6-10.3); Creatinine Clr Calc Pharmacy 84.8 ml/min; Globulin 3.2 gm/dl (2.5-4.0); Potassium 3.9 mmol/L (3.5-5.1); Total Protein 7.4 gm/dl (6.0-8.3)
[2024-09-10 00:38] LABS: Thyroid Stimulating Hormone 1.833 uIu/ml (0.300-4.500)
[2024-09-10 00:46] LABS: Acetaminophen < 3 ug/ml (10-30); Salicylate < 3.0 mg/dl (3.0-30)
[2024-09-10 04:19] LABS: Pregnancy Test, Urine Negative (Negative)
[2024-09-10 04:28] LABS: Bilirubin Urine Negative (Negative); Blood Urine 3+ (Negative); Color Urine Red; Glucose Urine UA Negative (Negative); Ketones Urine Negative (Negative); Leukocyte Esterase Urine Negative (Negative); Nitrite Urine Negative (Negative); Protein Urine 2+ (Negative); Specific Gravity Urine 1.025 (1.000-1.030); Urobilinogen Urine Negative (Negative)
[2024-09-10 04:29] LABS: Appearance Urine Cloudy (Clear)
--- NOTE | 2024-09-10 04:32 | History & Physical Report ---
Date of Service September 10, 2024 Assessment & Plan (1) Alcohol intoxication: Plan: 39-year-old female with past medical history significant for patent foramen ovale, GERD, history of hepatitis C virus infection status post interferon therapy, inflammatory polyarthritis, polysubstance use, history of IV drug abuse in remission, paranoid schizophrenia, depression, PTSD, anxiety state, history of COVID, history of ongoing alcoholism called 911 as she was having racing thoughts and auditory hallucination and needed help. On police arrival patient was found drinking alcohol and seemed to be talking about the meaning of life. Patient denies any suicidal thoughts or homicidal thoughts. Says she is having auditory hallucinations. Patient is talking rapidly seems to have racing thoughts. Says he is having a lot of headaches. No fevers. No nausea. No chest pain or shortness of breath. No cough. No abdominal pain. Says she is having foul-smelling urine and wanted checked. States she is constipated. Ambulating okay. Hemodynamics are okay. Patient says she is only taking Suboxone at home and not taking other medications Alcohol intoxication Alcohol level 352 History of alcoholism Will do alcohol withdrawal protocol with gabapentin and Ativan as needed Thiamine and folic acid and multivitamin Close monitor Paranoid schizophrenia Patient called 911 as patient has having racing thoughts and auditory hallucinations and wanted help States she is taking only her Suboxone medication not taking other medications Will consult psychiatry Follow drug screen Urinary symptoms Will follow UA Last admission was checked for Chlamydia trachomatis and HIV and N. gonorrhoeae which were negative DVT prophylaxis Lovenox Disposition Med/telemetry Full code. History of Present Illness Chief Complaint: Alcoholism and racing thoughts Primary Care Provider: NO PCP 39-year-old female with past medical history significant for patent foramen ovale, GERD, history of hepatitis C virus infection status post interferon therapy, inflammatory polyarthritis, polysubstance use, history of IV drug abuse in remission, paranoid schizophrenia, depression, PTSD, anxiety state, history of COVID, history of ongoing alcoholism called 911 as she was having racing thoughts and auditory hallucination and needed help. On police arrival patient was found drinking alcohol and seemed to be talking about the meaning of life. Patient denies any suicidal thoughts or homicidal thoughts. Says she is having auditory hallucinations. Patient is talking rapidly seems to have racing thoughts. Says he is having a lot of headaches. No fevers. No nausea. No chest pain or shortness of breath. No cough. No abdominal pain. Says she is having foul-smelling urine and wanted checked. States she is constipated. Ambulating okay. Hemodynamics are okay. Patient says she is only taking Suboxone at home and not taking other medications Past medical history. As mentioned above. Past surgical history. . Colonoscopy. Dilatation and curettage. Exploratory laparotomy. Laparoscopic repair of left inguinal hernia with mesh. Left knee arthroscopy. Social history. She smokes 1 pack a day. Heavy drinking of alcohol.. States she is currently did not use drugs for several months. Family history. Patient is adopted Allergies Allergy/AdvReac Type Severity Reaction Status Date / Time morphine Allergy Severe RASH Verified 05/18/22 21:13 codeine Allergy Intermediate HIVES Verified 05/18/22 21:13 levofloxacin Allergy Intermediate HIVES Verified 05/18/22 21:13 sulfamethoxazole Allergy Intermediate HIVES Verified 05/18/22 21:13 trimethoprim Allergy Intermediate HIVES Verified 05/18/22 21:13 nitrofurantoin Allergy Unknown Unknown Verified 05/18/22 21:13 Penicillins Allergy Unknown AMOXICILLIN Verified 05/18/22 21:13 Quinolones AdvReac Intermediate NEURO SIDE Verified 05/18/22 21:13 EFFECTS Home Medications Medication Instructions Recorded Confirmed Type acamprosate 333 mg tablet,delayed 333 mg PO BID #60 tabs 07/27/24 09/10/24 Rx release buprenorphine 8 mg-naloxone 2 mg 1 tab sublingual BID17 #0 tabs 07/27/24 09/10/24 Rx sublingual tablet buspirone 7.5 mg tablet 7.5 mg PO TID PRN anxiety #30 tabs 07/27/24 09/10/24 Rx melatonin 10 mg capsule 10 mg PO HS #30 caps 07/27/24 09/10/24 Rx Past Med/Surg History Problem List (Updated 09/10/24 @ 01:38 by Fara Hebert MD) Alcohol intoxication (Acute) Polysubstance use disorder Paranoia Bipolar 1 disorder, mixed E. coli UTI Inflammatory polyarthritis Paranoid schizophrenia, chronic condition with acute exacerbation (Acute) Alcohol intoxication (Acute) Insomnia Depression, unspecified Alcohol withdrawal syndrome (Acute) Alcohol dependence (Acute) Alcohol use disorder (Acute) DVT prophylaxis Discharge planning issues Wound of right lower extremity Traumatic open wound of right lower leg with infection Fever (Acute) Anemia (Acute) Tobacco abuse disorder (Chronic) Cellulitis of hand (Acute) MDD (major depressive disorder) (Chronic) Polysubstance abuse (Chronic) Cellulitis (Acute) History of hepatitis C (Chronic) Anemia (Chronic) Anxiety (Chronic) Panic attack (Chronic) Cervical paraspinal muscle spasm (Acute) Headache (Acute) Neck pain (Acute) Polysubstance dependence (Chronic) Surgical History History of section H/O hernia repair H/O: section Family History Other Adopted No pertinent family history Social History Smoking Status: Current every day smoker Tobacco Type: Cigarettes Cigarettes Per Day: 10; Second Hand Exposure: No; Do You Dip or Chew Tobacco: No; Tobacco Cessation Education Requested by Patient: No Hx Alcohol Use: Yes Alcohol type: beer Hx Substance Use: Yes Prescribed Medications: Opiates and Sedatives Non- Prescribed Medications Comment: Fentanyl and Xanax abuse Last Used Substance: Unknown Substance Use Type Other:: Pt refuses to answer. Preferred Language: Kyrgyz Communication Ability: Effective Visual Impairment: No Limitations Fiber Drier Operator Required: No Beliefs That Will Affect Care: None marital status: Single Current Living Situation: Alone How many Children do You have: 1 Other Information That Helps Us Care for You: No Feels Safe at Home: Yes Safety Concerns: Feels Safe At This Time Assistive Devices: None Review of Systems Review of Systems: All systems reviewed & are unremarkable except as noted in HPI & below Physical Exam Physical Exam: General- Not in distress Head- atraumatic Eyes- EOMI. ENT- oropharynx clear Neck- supple, no JVD. Lungs- clear to auscultation no wheezing or crackles Heart- regular rhythm; no murmur, no gallop. Abdomen- normal bowel sounds, soft, nontender, no distension Extremities- no pretibial edema, no erythema seen Neuro- alert, oriented . Speaking rapidly EOMI; no facial palsy; no dysarthria; moves extremities Results & Data Results & Data Vital Signs (Past 12 Hours) Vital Signs Temp Pulse Pulse Pulse Resp BP BP 09/10/24 04:00 90 17 09/10/24 03:58 90 18 141/78 H 09/09/24 22:43 37.1 C 93 H 18 122/83 BP Pulse Ox O2 Del Method 09/10/24 04:00 125/67 98 Room Air 09/10/24 03:58 98 Room Air 09/09/24 22:43 95 Room Air Diagnostic Findings Laboratory Results WBC 8.49 K/ul (4.8-10.8) 09/09/24 23:35 RBC 4.07 M/uL (4.20-5.40) L 09/09/24 23:35 Hgb 12.1 g/dl (12.0-16.0) 09/09/24 23:35 Hct 35.9 % (37.0-47.0) L 09/09/24 23:35 MCV 88.2 fL (80.0-100.0) 09/09/24 23:35 MCH 29.7 pg (25.0-34.0) 09/09/24 23:35 MCHC 33.7 g/dL (32.0-36.0) 09/09/24 23:35 RDW Std Deviation 42.8 fL (36.4-46.3) 09/09/24 23:35 RDW Coeff of Mateo 13.2 % (11.5-14.5) 09/09/24 23:35 Plt Count 307 K/uL (130-400) 09/09/24 23:35 MPV 9.9 fL (9.4-12.4) 09/09/24 23:35 Immature Gran % (Auto) 0.2 % 09/09/24 23:35 Neut % (Auto) 45.1 % 09/09/24 23:35 Lymph % (Auto) 46.5 % 09/09/24 23:35 Dane % (Auto) 3.5 % 09/09/24 23:35 Eos % (Auto) 4.1 % 09/09/24 23:35 Baso % (Auto) 0.6 % 09/09/24 23:35 Neut # (Auto) 3.82 K/uL (1.40-6.50) 09/09/24 23:35 Lymph # (Auto) 3.95 K/uL (1.20-3.40) H 09/09/24 23:35 Dane # (Auto) 0.30 K/uL (0.11-0.59) 09/09/24 23:35 Eos # (Auto) 0.35 K/uL (0.00-0.50) 09/09/24 23:35 Baso # (Auto) 0.05 K/uL (0.00-0.20) 09/09/24 23:35 Immature Gran # (Auto) 0.02 K/uL (0.01-0.20) 09/09/24 23:35 Sodium 142 mmol/L (136-145) 09/09/24 23:35 Potassium 3.9 mmol/L (3.5-5.1) 09/09/24 23:35 Chloride 111 mmol/L (98-107) H 09/09/24 23:35 Carbon Dioxide 21 mmol/L (21-32) 09/09/24 23:35 Anion Gap 10 (3-11) 09/09/24 23:35 BUN 11 mg/dl (6-23) 09/09/24 23:35 Creatinine 0.78 mg/dl (0.6-1.2) 09/09/24 23:35 Est Cr Clr Drug Dosing 84.8 ml/min 09/09/24 23:35 eGFR 98.41 09/09/24 23:35 BUN/Creatinine Ratio 14.1 (10-20) 09/09/24 23:35 Glucose 103 mg/dl (70-99(Fasting)) H 09/09/24 23:35 Calcium 8.2 mg/dl (8.6-10.3) L 09/09/24 23:35 Total Bilirubin 0.3 mg/dl (0.2-1.0) 09/09/24 23:35 AST 23 U/L (13-39) 09/09/24 23:35 ALT 12 U/L (7-52) 09/09/24 23:35 Alkaline Phosphatase 87 U/L (34-104) 09/09/24 23:35 Total Protein 7.4 gm/dl (6.0-8.3) 09/09/24 23:35 Albumin 4.2 gm/dl (3.4-5.0) 09/09/24 23:35 Globulin 3.2 gm/dl (2.5-4.0) 09/09/24 23:35 Albumin/Globulin Ratio 1.3 (0.9-2) 09/09/24 23:35 TSH 1.833 uIu/ml (0.300-4.500) 09/09/24 23:35 Urine Test Negative (Negative) 09/10/24 04:05 Salicylates < 3.0 mg/dl (3.0-30) L 09/09/24 23:35 Acetaminophen < 3 ug/ml (10-30) L 09/09/24 23:35 Ethyl Alcohol mg/dL 352.0 mg/dl (<10.0) H 09/09/24 23:35 Adenovirus (PCR) Not Detected (NotDetected) 09/09/24 22:50 B. pertussis DNA (PCR) Not Detected (NotDetected) 09/09/24 22:50 B.parapertussis DNA PCR Not Detected (NotDetected) 09/09/24 22:50 C. pneumoniae DNA (PCR) Not Detected (NotDetected) 09/09/24 22:50 Coronavirus OC43 (PCR) Not Detected (NotDetected) 09/09/24 22:50 Coronavirus HKU1 (PCR) Not Detected (NotDetected) 09/09/24 22:50 Coronavirus 229E (PCR) Not Detected (NotDetected) 09/09/24 22:50 SARS-CoV-2 (PCR) Not Detected (NotDetected) 09/09/24 22:50 Coronavirus NL63 (PCR) Not Detected (NotDetected) 09/09/24 22:50 Human Metapneumovir PCR Not Detected (NotDetected) 09/09/24 22:50 Influenza Type A (PCR) Not Detected (NotDetected) 09/09/24 22:50 Influenza Type B (PCR) Not Detected (NotDetected) 09/09/24 22:50 M. pneumoniae (PCR) Not Detected (NotDetected) 09/09/24 22:50 Parainfluenza 1 (PCR) Not Detected (NotDetected) 09/09/24 22:50 Parainfluenza 2 (PCR) Not Detected (NotDetected) 09/09/24 22:50 Parainfluenza 3 (PCR) Not Detected (NotDetected) 09/09/24 22:50 Parainfluenza 4 (PCR) Not Detected (NotDetected) 09/09/24 22:50 RSV (PCR) Not Detected (NotDetected) 09/09/24 22:50 Entero/Rhino (PCR) Not Detected (NotDetected) 09/09/24 22:50 Code Status & VTE Plan VTE Prophylaxis Plan VTE Prophylaxis will be ordered: Yes
[2024-09-10 04:38] LABS: RBC Urine >20 /hpf (0-2)
[2024-09-10 04:39] LABS: Bacteria Urine None Seen (None Seen); WBC Urine 0-5 /hpf (0-5)
[2024-09-10 04:42] LABS: Amphetamines+Metham, Urine Neg (Neg); Barbiturates, Urine Neg (Neg); Benzodiazepine, Urine Neg (Neg); Cocaine, Urine Neg (Neg); Fentanyl, Urine Neg (Neg); MDMA (Ecstacy), Urine Neg (Neg); Marijuana, Urine Neg (Neg); Methadone, Urine Neg (Neg); Opiate, Urine Neg (Neg); Phencyclidine, Urine Neg (Neg)
[2024-09-10] MEDS ORDERED: Ativan IV Alcohol Withdrawal--Active Protocol IV PRN (04:42)
[2024-09-10] MEDS ORDERED: NITROGLYCERIN SL 0.4 MG/TAB TAB SL PRN (04:42)
[2024-09-10] MEDS ORDERED: GABAPENTIN 1200MG ALCOHOL WITHDRAWAL LOAD PO STA (04:42)
[2024-09-10] MEDS ORDERED: ACETAMINOPHEN 325 MG TAB PO PRN (04:42)
[2024-09-10] MEDS ORDERED: LORazepam 2 MG/1 ML VIAL IV PRN (04:42)
[2024-09-10] MEDS: ENOXAPARIN INJ 40 MG/0.4 ML SYR SQ SCH (05:36)
[2024-09-10] MEDS: ACETAMINOPHEN 500 MG TAB PO STA (05:37)
[2024-09-10] MEDS: NICOTINE 21 MG/24 HR TDSY TD STA (05:39)
[2024-09-10] MEDS: GABAPENTIN 600 MG TAB PO ONE (05:39)
[2024-09-10] MEDS: LORazepam 1 MG TAB PO STA (05:39)
[2024-09-10] MEDS: ACETAMINOPHEN 1,000 MG/100 ML VIAL IV STA (05:41)
[2024-09-10] MEDS: MULTIVITAMIN TAB PO SCH (09:09)
[2024-09-10] MEDS: NICOTINE 21 MG/24 HR TDSY TD SCH (09:09)
[2024-09-10] MEDS: FOLIC ACID 1 MG in SYRINGE 9.8 ML IV SCH (09:09)
[2024-09-10] MEDS: BUPRENORPHINE/NALOXONE 8/2 MG TAB SL SCH (09:09)
[2024-09-10] MEDS: THIAMINE HCL 100 MG in SYRINGE 9 ML IV SCH (09:09)
[2024-09-10] MEDS: LORazepam 2 MG/1 ML VIAL IV PRN ×2 (09:11→12:49)
[2024-09-10] MEDS: CALCIUM 600MG + VIT D 400 IU TAB PO SCH (11:08)
[2024-09-10] MEDS: ACAMPROSATE CALCIUM 333 MG TAB PO SCH (12:49)
[2024-09-10] MEDS: GABAPENTIN 600 MG TAB PO SCH ×2 (12:50→22:24)
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
--- NOTE | 2024-09-10 15:22 | XRay Report ---
EXAMINATION: X-ray hand left minimum 3 view routine CLINICAL HISTORY: Rash, arthritis PRIORS: None TECHNIQUE: AP, oblique and lateral view of the left hand FINDINGS: Bone stock is within normal limits. A ring overlies the fourth proximal phalanx obscuring fine bone detail. No acute fracture or dislocation. No high-grade loss of joint space, erosions or osteophytes. No soft tissue abnormality or radiopaque foreign body. Very mild joint space narrowing involving the base of the thumb and distal interphalangeal joints. Carpal bones appear congruous. 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 No erosions or osteophytes. Electronically signed by Liza Alfaro 09-10-2024 3:22 PM
--- NOTE | 2024-09-10 15:23 | XRay Report ---
EXAMINATION: X-ray right left minimum 3 view routine CLINICAL HISTORY: Rash, arthritis PRIORS: None TECHNIQUE: AP, oblique and lateral view of the left hand FINDINGS: Bone stock is within normal limits. No acute fracture or dislocation. No high-grade loss of joint space, erosions or osteophytes. No soft tissue abnormality or radiopaque foreign body. Very mild joint space narrowing involving the base of the thumb and distal interphalangeal joints. Carpal bones appear congruous. 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 No erosions or osteophytes. Electronically signed by Liza Alfaro 09-10-2024 3:22 PM
--- NOTE | 2024-09-10 15:54 | Hospitalist Progress Note ---
Date of Service September 10, 2024 Assessment & Plan (1) Alcohol intoxication: Plan: Patient is a 39 yr female with past medical history significant for patent foramen ovale, GERD, history of hepatitis C virus infection status post interferon therapy, inflammatory polyarthritis, polysubstance use, history of IV drug abuse in remission, paranoid schizophrenia, depression, PTSD, anxiety state, history of COVID, history of ongoing alcoholism called 911 as she was having racing thoughts and auditory hallucination and needed help. On police arrival patient was found drinking alcohol and seemed to be talking about the meaning of life. Patient denies any suicidal thoughts or homicidal thoughts. Says she is having auditory hallucinations. Patient is talking rapidly seems to have racing thoughts. Says he is having a lot of headaches. No fevers. No nausea. No chest pain or shortness of breath. No cough. No abdominal pain. Says she is having foul-smelling urine and wanted checked. States she is constipated. Ambulating okay. Hemodynamics are okay. Patient says she is only taking Suboxone at home and not taking other medications Alcohol intoxication Alcohol level 352 H/O Alcoholism Continue gabapentin protocol Continue thiamine, folic acid Monitor for alcohol withdrawal Counseled to quit drinking Paranoid schizophrenia Patient called 911 as patient has having racing thoughts and auditory hallucinations and wanted help States she is taking only her Suboxone medication not taking other medications Appreciate psychiatry input: No longer on 302 warrant. If she has to leave AMA, need to reassess 3 to criteria with psych Does not need one-to-one observation Will start Abilify 2.5 mg at bedtime Once medically cleared, plan to transfer for inpatient psychiatric treatment Tobacco use disorder Continue nicotine patch Counseled to quit smoking Urinary symptoms Will follow UA Last admission was checked for Chlamydia trachomatis and HIV and N. 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 No erosions or osteophytes. Follows with Rheumatology as outpatient Monitor DVT Px: Lovenox SQ Code Status Full Code Admission and Anticipated Discharge Date Admission Date: September 10, 2024 Subjective Patient is seen and examined at bedside Denies suicidal thoughts during my encounter Feels anxious Denies any chest pain, dyspnea, nausea, vomiting, abdominal pain Reports chronic arthritis oh hands Discussed with psychiatry today Review of Systems Review of Systems: All systems reviewed & are unremarkable except as noted in Subjective Physical Exam Physical Exam: Physical Exam: Vitals signs as noted above General Appearance:Moderately built and nourished, no apparent distress Head: normocephalic, Atraumatic Eyes: normal inspection, EOMI Neck: supple, Trachea midline Respiratory/Chest: Normal breath sounds, CTA, No accessory muscle use Cardiovascular: S1, S2, No murmur Abdomen/GI:Soft, Non tender, Bowel sounds present Extremities/Musculoskeletal:normal inspection, no edema,+ arthritic changes of carpometacarpal Jts B/L Neurologic/Psych:AAOX3, grossly no focal neurological deficits Skin: normal color, warm Results & Data Results & Data Vital Signs (Past 12 Hours) Vital Signs Temp Pulse Pulse Resp BP BP Pulse Ox 09/10/24 12:45 36.5 C 91 H 18 132/89 95 09/10/24 09:13 36.6 C 95 H 95 H 18 129/93 97 09/10/24 07:22 36.9 C 90 20 124/71 98 09/10/24 05:00 09/10/24 04:00 90 17 125/67 98 09/10/24 03:58 90 18 141/78 H 98 Pulse Ox O2 Del Method O2 Del Method 09/10/24 12:45 09/10/24 09:13 Room Air 09/10/24 07:22 Room Air 09/10/24 05:00 98 Room Air 09/10/24 04:00 Room Air 09/10/24 03:58 Room Air Laboratory Results Short CBC 09/09/24 Range/Units 23:35 WBC 8.49 (4.8-10.8) K/ul Hgb 12.1 (12.0-16.0) g/dl Hct 35.9 L (37.0-47.0) % Plt Count 307 (130-400) K/uL BMP 09/09/24 23:35 Sodium 142 Potassium 3.9 Chloride 111 H Carbon Dioxide 21 BUN 11 Creatinine 0.78 Glucose 103 H Calcium 8.2 L Liver Function 09/09/24 Range/Units 23:35 Total Bilirubin 0.3 (0.2-1.0) mg/dl AST 23 (13-39) U/L ALT 12 (7-52) U/L Alkaline Phosphatase 87 (34-104) U/L Albumin 4.2 (3.4-5.0) gm/dl Urine 09/10/24 Range/Units 04:05 Urine Color Red Urine Appearance Cloudy A (Clear) Urine pH 6.0 (4.5-7.5) Ur Specific Steen 1.025 (1.000-1.030) Urine Protein 2+ H (Negative) Urine Glucose (UA) Negative (Negative)
[2024-09-10] MEDS: MELATONIN 3 MG TAB PO SCH (22:20)
[2024-09-10] MEDS: ARIPiprazole 5 MG TAB PO SCH (22:23)
[2024-09-10] MEDS: busPIRone 7.5 MG TAB PO PRN (22:24)
[2024-09-11 06:14] LABS: BUN Creatinine Ratio 17.4 (10-20); Creatinine Clr Calc Pharmacy 95.9 ml/min; Potassium 4.5 mmol/L (3.5-5.1)
[2024-09-11 06:15] LABS: Albumin Level 3.9 gm/dl (3.4-5.0); Bilirubin Direct 0.2 mg/dl (0-0.2); Magnesium 1.8 mg/dl (1.7-2.4); Total Protein 6.8 gm/dl (6.0-8.3)
[2024-09-11 07:38] LABS: Basophils # (auto) 0.02 K/uL (0.00-0.20); Basophils % (auto) 0.4 %; Eosinophils # (auto) 0.39 K/uL (0.00-0.50); Eosinophils % (auto) 7.2 %; Hematocrit (blood only) 32.8 % (37.0-47.0); Hemoglobin 10.9 g/dl (12.0-16.0); Immature Granulocytes # (auto) 0.01 K/uL (0.01-0.20); Immature Granulocytes % (auto) 0.2 %; Lymphocytes # (auto) 2.56 K/uL (1.20-3.40); Lymphocytes % (auto) 47.4 %; Mean Corpuscular Hemoglobin 29.1 pg (25.0-34.0); Mean Corpuscular Hgb Conc 33.2 g/dL (32.0-36.0); Mean Corpuscular Volume 87.5 fL (80.0-100.0); Mean Platelet Volume 10.2 fL (9.4-12.4); Monocytes # (auto) 0.24 K/uL (0.11-0.59); Monocytes % (auto) 4.4 %; Neutrophils # (auto) 2.18 K/uL (1.40-6.50); Neutrophils % (auto) 40.4 %; Platelet Count 201 K/uL (130-400); RDW Coefficient of Variation 13.2 % (11.5-14.5); RDW Standard Deviation 42.5 fL (36.4-46.3); Red Blood Count 3.75 M/uL (4.20-5.40)
[2024-09-11 08:02] VITALS: RESP 18
[2024-09-11] MEDS ORDERED: CHOLECALCIFEROL 25 MCG (1000 UNITS) TAB PO SCH (09:15)
--- NOTE | 2024-09-11 15:15 | Hospitalist Progress Note ---
Date of Service September 11, 2024 Assessment & Plan (1) Alcohol intoxication: Plan: Patient is a 39 yr female with past medical history significant for patent foramen ovale, GERD, history of hepatitis C virus infection status post interferon therapy, inflammatory polyarthritis, polysubstance use, history of IV drug abuse in remission, paranoid schizophrenia, depression, PTSD, anxiety state, history of COVID, history of ongoing alcoholism called 911 as she was having racing thoughts and auditory hallucination and needed help. On police arrival patient was found drinking alcohol and seemed to be talking about the meaning of life. Patient denies any suicidal thoughts or homicidal thoughts. Says she is having auditory hallucinations. Patient is talking rapidly seems to have racing thoughts. Says he is having a lot of headaches. No fevers. No nausea. No chest pain or shortness of breath. No cough. No abdominal pain. Says she is having foul-smelling urine and wanted checked. States she is constipated. Ambulating okay. Hemodynamics are okay. Patient says she is only taking Suboxone at home and not taking other medications Alcohol intoxication Alcohol level 352 H/O Alcoholism Continue gabapentin protocol Continue thiamine, folic acid Monitor for alcohol withdrawal Counseled to quit drinking Continue current management Paranoid schizophrenia Patient called 911 as patient has having racing thoughts and auditory hallucinations and wanted help States she is taking only her Suboxone medication not taking other medications Appreciate psychiatry input: No longer on 302 warrant. If she has to leave AMA, need to reassess 3 to criteria with psych Does not need one-to-one observation Will start Abilify 2.5 mg at bedtime Once medically cleared, plan to transfer for inpatient psychiatric treatment--patient contemplating Tobacco use disorder Continue nicotine patch Counseled to quit smoking Urinary symptoms Last admission was checked for Chlamydia trachomatis and HIV and N. 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 No erosions or osteophytes. Follows with Rheumatology as outpatient Monitor DVT Px: Lovenox SQ Code Status Full Code Admission and Anticipated Discharge Date Admission Date: September 10, 2024 Subjective Patient is seen and examined at bedside Offers no new complaints States feeling better today No significant alcohol withdrawal symptoms during my encounter today Denies SI Denies any chest pain, dyspnea, nausea, vomiting, abdominal pain Review of Systems Review of Systems: All systems reviewed & are unremarkable except as noted in Subjective Physical Exam Physical Exam: Physical Exam: Vitals signs as noted above General Appearance:Moderately built and nourished, no apparent distress Head: normocephalic, Atraumatic Eyes: normal inspection, EOMI Neck: supple, Trachea midline Respiratory/Chest: Normal breath sounds, CTA, No accessory muscle use Cardiovascular: S1, S2, No murmur Abdomen/GI:Soft, Non tender, Bowel sounds present Extremities/Musculoskeletal:normal inspection, no edema,+ arthritic changes of carpometacarpal Jts B/L Neurologic/Psych:AAOX3, grossly no focal neurological deficits Skin: normal color, warm Results & Data Results & Data Vital Signs (Past 12 Hours) Vital Signs Temp Pulse Pulse Resp BP BP Pulse Ox 09/11/24 11:27 36.7 C 77 18 113/75 96 09/11/24 08:01 36.7 C 77 18 121/78 99 09/11/24 07:24 77 09/11/24 03:34 36.5 C 69 16 128/90 100 O2 Del Method 09/11/24 11:27 Room Air 09/11/24 08:01 Room Air 09/11/24 07:24 09/11/24 03:34 Room Air Laboratory Results Short CBC 09/11/24 09/11/24 09/11/24 Range/Units 05:22 06:30 07:14 WBC Cancelled Cancelled 5.40 Hgb Cancelled Cancelled 10.9 L Hct Cancelled Cancelled 32.8 L Plt Count Cancelled Cancelled 201 BMP 09/11/24 05:22 Sodium 136 Potassium 4.5 Chloride 106 Carbon Dioxide 25 BUN 12 Creatinine 0.69 Glucose 94 Calcium 9.0 Liver Function 09/11/24 Range/Units 05:22 Total Bilirubin 1.0 D (0.2-1.0) mg/dl Direct Bilirubin 0.2 (0-0.2) mg/dl AST 23 (13-39) U/L ALT 11 (7-52) U/L Alkaline Phosphatase 82 (34-104) U/L Albumin 3.9 (3.4-5.0) gm/dl
[2024-09-12] MEDS: GABAPENTIN 600 MG TAB PO SCH (05:17)
[2024-09-12] MEDS: LORazepam 0.5 MG TAB PO ONE (11:16)
[2024-09-12 11:36] VITALS: BP 116/76; PULSE 118; TEMP 97.9; O2SAT 98
--- NOTE | 2024-09-12 12:25 | Hospitalist Progress Note ---
Date of Service September 12, 2024 Assessment & Plan (1) Alcohol intoxication: Plan: Patient is a 39 yr female with past medical history significant for patent foramen ovale, GERD, history of hepatitis C virus infection status post interferon therapy, inflammatory polyarthritis, polysubstance use, history of IV drug abuse in remission, paranoid schizophrenia, depression, PTSD, anxiety state, history of COVID, history of ongoing alcoholism called 911 as she was having racing thoughts and auditory hallucination and needed help. On police arrival patient was found drinking alcohol and seemed to be talking about the meaning of life. Patient denies any suicidal thoughts or homicidal thoughts. Says she is having auditory hallucinations. Patient is talking rapidly seems to have racing thoughts. Says he is having a lot of headaches. No fevers. No nausea. No chest pain or shortness of breath. No cough. No abdominal pain. Says she is having foul-smelling urine and wanted checked. States she is constipated. Ambulating okay. Hemodynamics are okay. Patient says she is only taking Suboxone at home and not taking other medications Alcohol intoxication Alcohol level 352 H/O Alcoholism Continue gabapentin protocol Continue thiamine, folic acid Monitor for alcohol withdrawal Counseled to quit drinking Continue the protocol Paranoid schizophrenia Patient called 911 as patient has having racing thoughts and auditory hallucinations and wanted help States she is taking only her Suboxone medication not taking other medications Appreciate psychiatry input: No longer on [address] warrant. If she has to leave AMA, need to reassess 3 to criteria with psych Does not need one-to-one observation Will start Abilify 2.5 mg at bedtime Patient refused inpatient psychiatric treatment--discussed with psychiatry on 09/12/2024 : Currently does not meet 302 criteria. Advised to continue Abilify Tobacco use disorder Continue nicotine patch Counseled to quit smoking Urinary symptoms Last admission was checked for Chlamydia trachomatis and HIV and N. 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 No erosions or osteophytes. Follows with Rheumatology as outpatient Monitor DVT Px: Lovenox SQ Code Status Full Code Disposition Home Admission and Anticipated Discharge Date Admission Date: September 10, 2024 Subjective Patient is seen and examined at bedside Patient states feeling little anxious but otherwise no complaints Refuses inpatient psychiatry treatment Discussed with psychiatrist on-call today Denies suicidal /homicidal thoughts Denies any chest pain, dyspnea, nausea, vomiting, abdominal pain Review of Systems Review of Systems: All systems reviewed & are unremarkable except as noted in Subjective Physical Exam Physical Exam: Physical Exam: Vitals signs as noted above General Appearance:Moderately built and nourished, no apparent distress Head: normocephalic, Atraumatic Eyes: normal inspection, EOMI Neck: supple, Trachea midline Respiratory/Chest: Normal breath sounds, CTA, No accessory muscle use Cardiovascular: S1, S2, No murmur Abdomen/GI:Soft, Non tender, Bowel sounds present Extremities/Musculoskeletal:normal inspection, no edema,+ arthritic changes of carpometacarpal Jts B/L Neurologic/Psych:AAOX3, grossly no focal neurological deficits Skin: normal color, warm Results & Data Results & Data Vital Signs (Past 12 Hours) Vital Signs Temp Pulse Resp BP Pulse Ox O2 Del Method 09/12/24 11:36 36.6 C 118 H 18 116/76 98 Room Air 09/12/24 08:02 36.5 C 89 18 121/81 95 Room Air 09/12/24 04:30 36.8 C 85 18 102/65 95 Room Air
--- NOTE | 2024-09-12 12:35 | Discharge Summary ---
Date of Service September 12, 2024 Admission HPI Per Admitting Provider 39-year-old female with past medical history significant for patent foramen ovale, GERD, history of hepatitis C virus infection status post interferon therapy, inflammatory polyarthritis, polysubstance use, history of IV drug abuse in remission, paranoid schizophrenia, depression, PTSD, anxiety state, history of COVID, history of ongoing alcoholism called 911 as she was having racing thoughts and auditory hallucination and needed help. On police arrival patient was found drinking alcohol and seemed to be talking about the meaning of life. Patient denies any suicidal thoughts or homicidal thoughts. Says she is having auditory hallucinations. Patient is talking rapidly seems to have racing thoughts. Says he is having a lot of headaches. No fevers. No nausea. No chest pain or shortness of breath. No cough. No abdominal pain. Says she is having foul-smelling urine and wanted checked. States she is constipated. Ambulating okay. Hemodynamics are okay. Patient says she is only taking Suboxone at home and not taking other medications Past medical history. As mentioned above. Past surgical history. . Colonoscopy. Dilatation and curettage. Exploratory laparotomy. Laparoscopic repair of left inguinal hernia with mesh. Left knee arthroscopy. Social history. She smokes 1 pack a day. Heavy drinking of alcohol.. States she is currently did not use drugs for several months. Family history. Patient is adopted Admission Exam Per Admitting Provider General- Not in distress Head- atraumatic Eyes- EOMI. ENT- oropharynx clear Neck- supple, no JVD. Lungs- clear to auscultation no wheezing or crackles Heart- regular rhythm; no murmur, no gallop. Abdomen- normal bowel sounds, soft, nontender, no distension Extremities- no pretibial edema, no erythema seen Neuro- alert, oriented . Speaking rapidly EOMI; no facial palsy; no dysarthria; moves extremities Principal Diagnosis Alcohol intoxication/alcohol use disorder Paranoid schizophrenia Tobacco use disorder Suspected bacterial vaginosis Vitamin D deficiency Discharge Data Allergies Allergy/AdvReac Type Severity Reaction Status Date / Time morphine Allergy Severe RASH Verified 05/18/22 21:13 codeine Allergy Intermediate HIVES Verified 05/18/22 21:13 levofloxacin Allergy Intermediate HIVES Verified 05/18/22 21:13 sulfamethoxazole Allergy Intermediate HIVES Verified 05/18/22 21:13 trimethoprim Allergy Intermediate HIVES Verified 05/18/22 21:13 nitrofurantoin Allergy Unknown Unknown Verified 05/18/22 21:13 Penicillins Allergy Unknown AMOXICILLIN Verified 05/18/22 21:13 Quinolones AdvReac Intermediate NEURO SIDE Verified 05/18/22 21:13 EFFECTS Consultations 09/10/24 00:51 ED Decision to Admit Stat 09/10/24 01:26 ED Decision to Admit Stat 09/10/24 08:00 Consult Psychiatry Routine Hospital Course (1) Alcohol intoxication: Patient is a 39 yr female with past medical history significant for patent foramen ovale, GERD, history of hepatitis C virus infection status post interferon therapy, inflammatory polyarthritis, polysubstance use, history of IV drug abuse in remission, paranoid schizophrenia, depression, PTSD, anxiety state, history of COVID, history of ongoing alcoholism called 911 as she was having racing thoughts and auditory hallucination and needed help. On police arrival patient was found drinking alcohol and seemed to be talking about the meaning of life. Patient denies any suicidal thoughts or homicidal thoughts. Says she is having auditory hallucinations. Patient is talking rapidly seems to have racing thoughts. Says he is having a lot of headaches. No fevers. No nausea. No chest pain or shortness of breath. No cough. No abdominal pain. Says she is having foul-smelling urine and wanted checked. States she is constipated. Ambulating okay. Hemodynamics are okay. Patient says she is only taking Suboxone at home and not taking other medications Alcohol intoxication Alcohol level 352 H/O Alcoholism Continue gabapentin protocol Continue thiamine, folic acid Monitor for alcohol withdrawal Counseled to quit drinking Continue the protocol Paranoid schizophrenia Patient called 911 as patient has having racing thoughts and auditory hallucinations and wanted help States she is taking only her Suboxone medication not taking other medications Appreciate psychiatry input: No longer on [address] warrant. If she has to leave AMA, need to reassess 3 to criteria with psych Does not need one-to-one observation Will start Abilify 2.5 mg at bedtime Patient refused inpatient psychiatric treatment--discussed with psychiatry on 09/12/2024 : Currently does not meet 302 criteria. Advised to continue Abilify Tobacco use disorder Continue nicotine patch Counseled to quit smoking Urinary symptoms Last admission was checked for Chlamydia trachomatis and HIV and N. 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 No erosions or osteophytes. Follows with Rheumatology as outpatient Monitor DVT Px: Lovenox SQ Code Status Full Code Disposition Home Total Time Total Time Spent Total Time Spent (In Minutes): 48 minutes Discharge Plan Discharge Items Patient Disposition: Home - Self-Care Reason For Visit: ALCOHOL WITHDRAWAL, PARANOIA, RACING THOUGHTS Discharge Diagnosis: Alcohol intoxication/alcohol use disorder Paranoid schizophrenia Tobacco use disorder Suspected bacterial vaginosis Vitamin D deficiency Activity: Per Instructions section Exercise/Sports: Gradually increase as tolerated Non-emergency contact: Primary Care Provider Call non-emergency contact if: you have any medication questions, your symptoms worsen, your pain is concerning for you and you have a fever Follow-up/Referrals: Mario Hercules MD [Primary Care Provider] - Diet: Heart Healthy Addtl Attending Provider Instructions: Follow-up with the primary care physician Dr. Hercules in 1 week Follow-up with your psychiatrist Dr. Pratt as recommended Consider following with your [facility] if you continue to have symptoms after completion of antibiotic course. --Complete the antibiotic course metronidazole as prescribed -- Quit drinking alcohol and quit smoking as advised -- Start taking Abilify 2.5 mg at bedtime as recommended by your psychiatrist. -- Continue taking vitamin D supplements as you are noted to have vitamin D de ficiency. Seek immediate medical attention if your symptoms reoccur or worsen Please take all medications as instructed on discharge list below. Please call if you have any questions or problems. You can reach a [facility] hospitalist on duty at [facility] 24 hours a day by calling [phone] Pending Studies at Discharge: No Stand-Alone Forms: My [facility], Smoking Cessation Medications and DC Order Prescriptions: New gabapentin 600 mg Tablet 600 mg PO DAILY Qty: 3 0RF aripiprazole [Abilify] 5 mg Tablet 2.5 mg PO HS Qty: 30 0RF Caltrate 600-D Plus Minerals 600 mg calcium- 800 unit-50 mg Tablet 1 tab PO BID Qty: 60 0RF thiamine HCl (vitamin B1) 100 mg tablet 100 mg PO DAILY Qty: 30 0RF folic acid 400 mcg tablet 400 mcg PO DAILY Qty: 30 0RF metronidazole 500 mg tablet 500 mg PO BID 7 Days Qty: 14 0RF Continued melatonin 10 mg capsule 10 mg PO HS Qty: 30 0RF buspirone 7.5 mg tablet 7.5 mg PO TID PRN (Reason: anxiety) Qty: 30 0RF buprenorphine-naloxone 8-2 mg tablet, sublingual 1 tab SUBLINGUAL BID17 Qty: 0 0RF acamprosate 333 mg tablet,delayed release (DR/EC) 333 mg PO BID Qty: 60 0RF Rx Instructions: administer with mid-day and evening meals Discharge Orders: Discharge Order (Routine); Ordered 09/12/24 Ordered By: Keaton Norris Admission Data Admit Date/Time: 09/10/24 04:04 Attending Provider: Keaton Norris Admit Provider: Abbe Caraballo Primary Care Provider: Mario Hercules Other Providers: Abbe Caraballo; Eloisa Pratt; Tunde Anderson; Liya Mazariegos; Court Wade; Danilo Wilkinson; Karla Stewart; Yin Snell
[2024-09-13] MEDS ORDERED: GABAPENTIN 600 MG TAB PO SCH (18:00)
== END 2024-09-12 13:14 | disposition home or self-care (01) | DRG 897 ==
LOC: ED 21:52 → EDINP 09-10 04:04 → 2N 09-10 04:41

== ENCOUNTER 2024-12-11 01:35 | Inpatient (IN) ==
--- NOTE | 2024-12-11 01:45 | Emergency Department Note ---
History of Present Illness General Chief complaint: Facial Injury/Pain Stated complaint: JAW PAIN, POSSIBLE FACIAL DROOP Time Seen by Provider: 12/11/24 01:40 History of Present Illness This 39-year-old female with past medical history significant for patent foramen ovale, GERD, history of hepatitis C virus infection status post interferon therapy, inflammatory polyarthritis, polysubstance use, history of IV drug abuse in remission, paranoid schizophrenia, depression, PTSD, anxiety state, history of COVID, history of ongoing alcoholism that was here yesterday for behavioral health evaluation that was given Haldol and Benadryl as she was combative presents ER complaining of left-sided facial droop with hives that has now resolved. She noticed her face was feeling off when she was on the phone and her roommate called EMS. sx started about 1230am and resolved by the time she arrived to the ER, by 1am. No prior stroke. No hives currently. She has had a couple alcoholic beverages today. No other drug use. Patient denies chest pain, dyspnea, fevers, numbness, tingling or any other medical complaints. She states she feels back to baseline. Home Medications Medication Instructions Recorded Confirmed Type buprenorphine 8 mg-naloxone 2 mg 1.5 tab sublingual DAILY 12/11/24 12/11/24 History sublingual tablet Allergies Allergy/AdvReac Type Severity Reaction Status Date / Time morphine Allergy Severe RASH Verified 12/11/24 02:16 codeine Allergy Intermediate HIVES Verified 12/11/24 02:16 levofloxacin Allergy Intermediate HIVES Verified 12/11/24 02:16 sulfamethoxazole Allergy Intermediate HIVES Verified 12/11/24 02:16 trimethoprim Allergy Intermediate HIVES Verified 12/11/24 02:16 nitrofurantoin Allergy Unknown Unknown Verified 12/11/24 02:16 Penicillins Allergy Unknown AMOXICILLIN Verified 12/11/24 02:16 Quinolones AdvReac Intermediate NEURO SIDE Verified 12/11/24 02:16 EFFECTS Past Med/Surg History Problem List (Updated 12/11/24 @ 04:08 by Zoey Babin PA-C) Bigeminal rhythm (Acute) TIA (transient ischemic attack) (Acute) Agitation (Acute) Alcohol intoxication (Acute) Psychotic disorder with delusions Alcohol intoxication (Acute) Polysubstance use disorder Paranoia Bipolar 1 disorder, mixed E. coli UTI Inflammatory polyarthritis Paranoid schizophrenia, chronic condition with acute exacerbation (Acute) Alcohol intoxication (Acute) Insomnia Depression, unspecified Alcohol withdrawal syndrome (Acute) Alcohol dependence (Acute) Alcohol use disorder (Acute) DVT prophylaxis Discharge planning issues Wound of right lower extremity Traumatic open wound of right lower leg with infection Fever (Acute) Anemia (Acute) Tobacco abuse disorder (Chronic) Cellulitis of hand (Acute) MDD (major depressive disorder) (Chronic) Polysubstance abuse (Chronic) Cellulitis (Acute) History of hepatitis C (Chronic) Anemia (Chronic) Anxiety (Chronic) Panic attack (Chronic) Cervical paraspinal muscle spasm (Acute) Headache (Acute) Neck pain (Acute) Polysubstance dependence (Chronic) Surgical History History of section H/O hernia repair H/O: section Family History Other Adopted No pertinent family history Social History Smoking Status: Current every day smoker Tobacco Type: Cigarettes Cigarettes Per Day: 10; Second Hand Exposure: No; Do You Dip or Chew Tobacco: No; Hx Alcohol Use: Yes Alcohol type: beer Hx Substance Use: Yes Prescribed Medications: Opiates and Sedatives Non- Prescribed Medications Comment: Fentanyl and Xanax abuse Last Used Substance: Unknown Substance Use Type Other:: Pt refuses to answer. Preferred Language: Azerbaijani Communication Ability: Effective Visual Impairment: No Limitations University Administrator Required: No Beliefs That Will Affect Care: None marital status: Single Current Living Situation: Alone How many Children do You have: 1 Feels Safe at Home: Yes Assistive Devices: None Review of Systems A total of 10 systems reviewed and were otherwise negative Physical Exam Vital Signs Vital Signs - 24 hr 12/11/24 01:46 12/11/24 01:46 12/11/24 02:04 Temperature 37.2 C 37.2 C Temperature Source Oral Oral Pulse Rate 84 84 Pulse Rate [Right Finger] 83 Pulse Rhythm Regular Pulse Rhythm [Right Finger] Regular Pulse Strength Normal Pulse Strength [Right Finger] Normal Respiratory Rate 16 16 Respiratory Effort / Characteristics Non-Labored Spontaneous Non-Labored Spontaneous Respiratory Depth Normal Normal Respiratory Pattern Regular Regular Blood Pressure 129/95 Blood Pressure [Left Arm] 129/95 Blood Pressure Mean 106 Blood Pressure Mean [Left Arm] 106 Blood Pressure Position Lying Blood Pressure Position [Left Arm] Lying Pulse Oximetry 95 97 Oxygen Delivery Method Room Air Room Air Sepsis Recent Fever Within 48 Hours No Sepsis New/Unexplained Change in Mental Status No Sepsis Action Taken by Nursing No Action Required 12/11/24 03:21 12/11/24 03:40 12/11/24 03:54 Temperature Temperature Source Pulse Rate 58 L 36 L Pulse Rate [Right Finger] 83 Pulse Rhythm Pulse Rhythm [Right Finger] Regular Pulse Strength Pulse Strength [Right Finger] Normal Respiratory Rate 17 Respiratory Effort / Characteristics Non-Labored Spontaneous Respiratory Depth Normal Respiratory Pattern Regular Blood Pressure Blood Pressure [Left Arm] 108/58 L Blood Pressure Mean Blood Pressure Mean [Left Arm] 74 Blood Pressure Position Blood Pressure Position [Left Arm] Lying Pulse Oximetry 98 Oxygen Delivery Method Room Air Sepsis Recent Fever Within 48 Hours Sepsis New/Unexplained Change in Mental Status Sepsis Action Taken by Nursing VITALS: Vitals are noted on the nurse's note and reviewed by myself. Vital signs stable. GENERAL: White female, in no acute distress, nondiaphoretic, well-developed well-nourished. SKIN: The skin was without rashes, erythema, edema, or bruising. There is no tenting of the skin. Capillary reflex less than 2 seconds. HEAD: Normocephalic atraumatic. EARS: External auditory canals clear EYES: Pupils equal round and reactive to light and accommodation. Conjunctivae without injection, sclerae without icterus. Extraocular movements intact. NOSE: Patent, no discharge. MOUTH: Mucous membranes moist. Pharynx without erythema or exudate. Uvula midline. Airway patent. Tongue does not deviate. NECK: Supple without nuchal rigidity. No lymphadenopathy. No thyromegaly. Cervical spine is nontender. No JVD. HEART: Regular rate and rhythm LUNGS: Clear to auscultation bilaterally without wheezes, rales or rhonchi. No retractions or accessory muscle use. ABDOMEN: Positive bowel sounds x 4. Normal tympanic percussion. Soft, nontender, without masses or organomegaly. Arriaga sign negative. No guarding or rebound tenderness. No CVA tenderness MUSCULOSKELETAL: No muscle atrophy, erythema, or edema noted. NEURO: Patient was alert and oriented to person place and time. Normal sensation to light and sharp touch. Cranial nerves II through XII grossly intact. No pronator drift. Cerebellar exam intact. No focal neurological deficits. Course Administered Medications Discontinued Medications Diphenhydramine HCl (Diphenhydramine 50 Mg/Ml Vial) 25 mg IV NOW STA Stop: 12/11/24 01:41 Last Admin: 12/11/24 02:07 Dose: 25 mg Documented By: ARSLAN Ioversol (Optiray 320 125ml) 118 ml IV ONCE ONE Stop: 12/11/24 02:38 Last Admin: 12/11/24 02:37 Dose: 118 ml Documented By: ÁNGELA Medical Decision Making Medical Records Attestation: I reviewed the patient's medical records. Home Medications Current Medication List: was personally reviewed by me Laboratory Data Attestation: I reviewed the patient's lab results. 12/11/24 01:55 12/11/24 01:55 Lab Results 12/11/24 Range/Units 01:55 WBC 7.05 (4.8-10.8) K/ul RBC 4.07 L (4.20-5.40) M/uL Hgb 11.8 L (12.0-16.0) g/dl Hct 35.8 L (37.0-47.0) % MCV 88.0 (80.0-100.0) fL MCH 29.0 (25.0-34.0) pg MCHC 33.0 (32.0-36.0) g/dL RDW Std Deviation 45.1 (36.4-46.3) fL RDW Coeff of Mateo 14.0 (11.5-14.5) % Plt Count 252 (130-400) K/uL MPV 10.2 (9.4-12.4) fL Immature Gran % (Auto) 0.4 % Neut % (Auto) 56.3 % Lymph % (Auto) 31.2 % [place] % (Auto) 7.1 % Eos % (Auto) 4.7 % Baso % (Auto) 0.3 % Neut # (Auto) 3.97 (1.40-6.50) K/uL Lymph # (Auto) 2.20 (1.20-3.40) K/uL [place] # (Auto) 0.50 (0.11-0.59) K/uL Eos # (Auto) 0.33 (0.00-0.50) K/uL Baso # (Auto) 0.02 (0.00-0.20) K/uL Immature Gran # (Auto) 0.03 (0.01-0.20) K/uL PT 9.8 (9.0-12.0) Seconds INR 0.9 (0.9-1.1) APTT 27 (21-31) Seconds PTT Ratio 1.0 Sodium 136 (136-145) mmol/L Potassium 3.2 L (3.5-5.1) mmol/L Chloride 104 (98-107) mmol/L Carbon Dioxide 24 (21-32) mmol/L Anion Gap 8 (3-11) BUN 9 (6-23) mg/dl Creatinine 0.63 (0.6-1.2) mg/dl Est Cr Clr Drug Dosing 108.9 ml/min eGFR 114.94 BUN/Creatinine Ratio 14.3 (10-20) Glucose 111 H (70-99(Fasting)) mg/dl Calcium 8.4 L (8.6-10.3) mg/dl Magnesium 2.0 (1.7-2.4) mg/dl Total Bilirubin 0.5 (0.2-1.0) mg/dl AST 43 H (13-39) U/L ALT 22 (7-52) U/L Alkaline Phosphatase 63 (34-104) U/L Total Creatine Kinase 706 H (26-192) U/L Troponin I High Sens 5.2 (0-14) pg/ml Total Protein 7.5 (6.0-8.3) gm/dl Albumin 4.2 (3.4-5.0) gm/dl Globulin 3.3 (2.5-4.0) gm/dl Albumin/Globulin Ratio 1.3 (0.9-2) HCG, Qual Negative (Negative) Ethyl Alcohol mg/dL 60.0 H (<10.0) mg/dl Imaging Data Attestation: I personally reviewed and interpreted this imaging study as follows: Radiologist's Impression: Head CT 12/11/24 01:40 EXAM: CT head/brain wo con CLINICAL HISTORY: neuro deficit, acute stroke suspected TECHNIQUE: Multiple axial images are obtained from the skull base to the vertex without contrast. CT scan was performed according to ALARA (as low as reasonable achievable). 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 No evidence of space occupying lesion, hemorrhage, edema, mass effect, midline shift, extra axial collection, or hydrocephalus is noted. Infarct in posterior limb of left internal capsule. Ventricles, sulci, and basal cisterns are symmetric and normal in size and configuration. The justice-white matter differentiation is preserved. Visualized paranasal sinuses and mastoid air cells are well aerated. Orbital contents are within normal limits. Bony structures are intact. IMPRESSION: 1. Infarct in posterior limb of left internal capsule. (New finding) Electronically signed by Carlos A Silver 12-11-2024 03:00 AM Head CTA 12/11/24 01:40 EXAM: CT angio head w con CLINICAL HISTORY: neuro deficit, acute stroke suspected TECHNIQUE: Contrast enhanced thin slice CT angiography scan of the cerebral vessels was performed with intravenous contrast. Angiographic images were processed, 3D MIP images were acquired for interpretation. Contiguous axial images were obtained. Reformatted coronal and sagittal images were also reviewed. If IV contrast material had not been administered, the likelihood of detecting abnormalities relevant to the patients condition would have been substantially decreased. CT scan was performed according to ALARA (as low as reasonable achievable). COMPARISON: No FINDINGS: Bilateral internal carotid arteries show normal course, calibre and opacification in the canalicular and cavernous part. Their division into the anterior cerebral artery and middle cerebral artery is defined. A1, A2 and M1, M2 segments are normal on both the sides. Bilateral vertebral arteries are seen to unite the form the basilar artery in a normal fashion. Basilar artery shows normal course, caliber and opacification. Its division into the posterior cerebral arteries is defined. Bilateral P1 and P2 segments are normal. Visualized venous structures show normal opacification. No evidence of intracranial aneurysm or AV malformation is seen. Hypoplastic right vertebral artery. IMPRESSION: 1. No evidence of stenosis or aneurysm. No evidence of dissection. Electronically signed by Carlos A Silver 12-11-2024 03:18 AM Neck CTA 12/11/24 01:40 EXAM: CT angio neck with con CLINICAL HISTORY: neuro deficit, acute stroke suspected TECHNIQUE: Contrast enhanced thin slice CT angiography scan of the carotid vessels was performed with intravenous contrast. Angiographic images were processed, 3D MIP images were acquired for interpretation.Contiguous axial images were obtained. Reformatted coronal and sagittal images were also reviewed. If IV contrast material had not been administered, the likelihood of detecting abnormalities relevant to the patients condition would have been substantially decreased. CT scan was performed according to ALARA (as low as reasonably achievable). COMPARISON: No FINDINGS: Included great vessels of the aortic arch are grossly unremarkable. Common carotid artery, carotid Bulb, internal carotid artery , and origin of the external carotid artery are well opacified. Vertebral arteries are well opacified. Jugular veins are well opacified. Included lung apices are grossly unremarkable. Thyroid gland appears unremarkable. Hypoplastic right vertebral artery. IMPRESSION: 1. No evidence of stenosis or aneurysm. No evidence of dissection. Electronically signed by Carlos A Silver 12-11-2024 03:34 AM MDM Narrative Prior records/ancillary studies reviewed and summarized above. Nursing notes reviewed. Additional history obtained from EMS. The patient's history was concerning for facial droop that is now resolved Differential diagnosis: Etiologies such as side effect of Haldol, Polo's palsy, TIA, metabolic, infection, hypo/hyperglycemia, electrolyte abnormalities, cardiac sources, intracerebral event, toxicologic, neurologic, as well as others were entertained. Physical examination: As above. ER treatment provided: IV Lock An order was placed for continuous cardiac monitoring. The monitor shows a rate of 60-100 with a sinus rhythm per my interpretation. Benadryl was ordered, IV fluids, AED pads were placed On reassessment the patient felt better. Diagnostics interpretation by me: ECG: Ordered for weakness EKG: Normal sinus, normal intervals, no acute ST-T wave changes. Impression normal sinus rhythm independently interpreted by myself The labs Independently Interpreted by myself revealed no worrisome leukocytosis, mild anemia, alcohol 60 Negative hCG Imaging studies: Imaging was reviewed and read by radiology NIH: 0 TIA Score: Age > 60:(1) 0 BP >140 >90 (1): 0 Clinical features (unilateral weakness) (2): 0 CF speech disturbance (1): 0 Duration of symptoms 10-60min (1): 1 Duration >60min (2): 0 Diabetes (1): 0 Score @ 2days @ 7days @ 90days 0-3 low 1% 1.2% 3.1% 4-5 mod 4.1% 5.9% 9.8% 6-7 high 8.1% 11.7% 17.8% Total: 1 Consultation: A consultation was placed with the hospitalist. The case was discussed and diagnostics were reviewed. The patient was evaluated in the ER for further treatment. A consultation was placed with neurology, Dr. Sousa from [facility] and the case discussed. He recommends brain MRI and if there is any abnormalities do full stroke workup and start her on aspirin. He states you can call back anytime to discuss the results of the MRI. Exam and history seem consistent with TIA. Patient CT showed no abnormality but the CTA was normal. I did discuss with the neurologist. He recommends an MRI and if this is abnormal to call him back. He does not think her symptoms are related to the abnormality found on imaging. Patient was neurovascularly and neurologically intact. She was reevaluated multiple times with no stroke symptoms. She was requesting something to eat. She was given food. While waiting for test results she did go into bigeminy and pads were placed. She did go back into normal sinus. Medicine is consulted case is discussed. She was admitted to the medical service. By the evaluation outlined above emergent etiologies such as infection, electrolyte abnormalities, abnormalities blood glucose, metabolic, as well as others were deemed relatively unlikely. The pt informed about the findings as listed above. All questions were answered and pleased with the treatment. The chart was completed utilizing [employer] Speech voice recognition software. Grammatical errors, random word insertions, pronoun errors, and incomplete sentences are an occassional consequence of this system due to software limitations, ambient noise, and hardware issues. Any formal questions or concerns about the content, text, or information contained within the body of this dictation should be directly addressed to the physician automotive parts counter assistant for clarification. Impression & Plan TIA (transient ischemic attack), Bigeminal rhythm Discharge Plan Visit Data Chief Complaint: Facial Injury/Pain Stated Complaint: JAW PAIN, POSSIBLE FACIAL DROOP ED Provider: Mecca Finley ED Midlevel Provider: Zoey Babin Discharge Problem: TIA (transient ischemic attack), Bigeminal rhythm Patient Disposition: Admitted As Inpatient Condition: Good Forms Stand Alone Forms: [employer] Prescriptions Prescriptions: No Action buprenorphine-naloxone 8-2 mg tablet, sublingual 1.5 tab SUBLINGUAL DAILY Referrals Referrals: Mario Hercules MD [Primary Care Provider] -
[2024-12-11] MEDS: diphenhydrAMINE 50 MG/ML VIAL IV STA (02:07)
[2024-12-11 02:14] LABS: Basophils # (auto) 0.02 K/uL (0.00-0.20); Basophils % (auto) 0.3 %; Eosinophils # (auto) 0.33 K/uL (0.00-0.50); Eosinophils % (auto) 4.7 %; Hematocrit (blood only) 35.8 % (37.0-47.0); Hemoglobin 11.8 g/dl (12.0-16.0); Immature Granulocytes # (auto) 0.03 K/uL (0.01-0.20); Immature Granulocytes % (auto) 0.4 %; Lymphocytes % (auto) 31.2 %; Mean Platelet Volume 10.2 fL (9.4-12.4); Monocytes % (auto) 7.1 %; Neutrophils # (auto) 3.97 K/uL (1.40-6.50); Neutrophils % (auto) 56.3 %; Platelet Count 252 K/uL (130-400); RDW Standard Deviation 45.1 fL (36.4-46.3); Red Blood Count 4.07 M/uL (4.20-5.40); White Blood Count 7.05 K/ul (4.8-10.8)
[2024-12-11 02:18] LABS: INR 0.9 (0.9-1.1); Partial Thromboplastin Time 27 Seconds (21-31); Prothrombin Time 9.8 Seconds (9.0-12.0)
[2024-12-11 02:24] LABS: Pregnancy Test, Serum Negative (Negative)
[2024-12-11 02:28] LABS: Albumin Globulin Ratio 1.3 (0.9-2); Albumin Level 4.2 gm/dl (3.4-5.0); BUN Creatinine Ratio 14.3 (10-20); Bilirubin,Total 0.5 mg/dl (0.2-1.0); Calcium 8.4 mg/dl (8.6-10.3); Creatinine Clr Calc Pharmacy 108.9 ml/min; Globulin 3.3 gm/dl (2.5-4.0); Potassium 3.2 mmol/L (3.5-5.1); Total Protein 7.5 gm/dl (6.0-8.3)
[2024-12-11 02:34] LABS: Troponin I High Sensitivity 5.2 pg/ml (0-14)
[2024-12-11] MEDS: OPTIRAY 320 125ml IV ONE (02:37)
--- NOTE | 2024-12-11 03:01 | CT Scan Report ---
EXAM: CT head/brain wo con CLINICAL HISTORY: neuro deficit, acute stroke suspected TECHNIQUE: Multiple axial images are obtained from the skull base to the vertex without contrast. CT scan was performed according to ALARA (as low as reasonable achievable). 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 No evidence of space occupying lesion, hemorrhage, edema, mass effect, midline shift, extra axial collection, or hydrocephalus is noted. Infarct in posterior limb of left internal capsule. Ventricles, sulci, and basal cisterns are symmetric and normal in size and configuration. The justice-white matter differentiation is preserved. Visualized paranasal sinuses and mastoid air cells are well aerated. Orbital contents are within normal limits. Bony structures are intact. IMPRESSION: 1. Infarct in posterior limb of left internal capsule. (New finding) Electronically signed by Carlos A Silver 12-11-2024 03:00 AM
--- NOTE | 2024-12-11 03:18 | CT Scan Report ---
EXAM: CT angio head w con CLINICAL HISTORY: neuro deficit, acute stroke suspected TECHNIQUE: Contrast enhanced thin slice CT angiography scan of the cerebral vessels was performed with intravenous contrast. Angiographic images were processed, 3D MIP images were acquired for interpretation. Contiguous axial images were obtained. Reformatted coronal and sagittal images were also reviewed. If IV contrast material had not been administered, the likelihood of detecting abnormalities relevant to the patients condition would have been substantially decreased. CT scan was performed according to ALARA (as low as reasonable achievable). COMPARISON: No FINDINGS: Bilateral internal carotid arteries show normal course, calibre and opacification in the canalicular and cavernous part. Their division into the anterior cerebral artery and middle cerebral artery is defined. A1, A2 and M1, M2 segments are normal on both the sides. Bilateral vertebral arteries are seen to unite the form the basilar artery in a normal fashion. Basilar artery shows normal course, caliber and opacification. Its division into the posterior cerebral arteries is defined. Bilateral P1 and P2 segments are normal. Visualized venous structures show normal opacification. No evidence of intracranial aneurysm or AV malformation is seen. Hypoplastic right vertebral artery. IMPRESSION: 1. No evidence of stenosis or aneurysm. No evidence of dissection. Electronically signed by Carlos A Silver 12-11-2024 03:18 AM
--- NOTE | 2024-12-11 03:35 | CT Scan Report ---
EXAM: CT angio neck with con CLINICAL HISTORY: neuro deficit, acute stroke suspected TECHNIQUE: Contrast enhanced thin slice CT angiography scan of the carotid vessels was performed with intravenous contrast. Angiographic images were processed, 3D MIP images were acquired for interpretation.Contiguous axial images were obtained. Reformatted coronal and sagittal images were also reviewed. If IV contrast material had not been administered, the likelihood of detecting abnormalities relevant to the patients condition would have been substantially decreased. CT scan was performed according to ALARA (as low as reasonably achievable). COMPARISON: No FINDINGS: Included great vessels of the aortic arch are grossly unremarkable. Common carotid artery, carotid Bulb, internal carotid artery , and origin of the external carotid artery are well opacified. Vertebral arteries are well opacified. Jugular veins are well opacified. Included lung apices are grossly unremarkable. Thyroid gland appears unremarkable. Hypoplastic right vertebral artery. IMPRESSION: 1. No evidence of stenosis or aneurysm. No evidence of dissection. Electronically signed by Carlos A Silver 12-11-2024 03:34 AM
[2024-12-11] MEDS: SODIUM CHLORIDE 0.9% 1,000 ML IV ONE (04:20)
[2024-12-11 04:23] LABS: Amphetamines+Metham, Urine Neg (Neg); Barbiturates, Urine Neg (Neg); Benzodiazepine, Urine Neg (Neg); Cocaine, Urine Neg (Neg); Fentanyl, Urine Neg (Neg); MDMA (Ecstacy), Urine Neg (Neg); Marijuana, Urine Neg (Neg); Methadone, Urine Neg (Neg); Opiate, Urine Neg (Neg); Phencyclidine, Urine Neg (Neg)
--- NOTE | 2024-12-11 05:07 | History & Physical Report ---
Date of Service December 11, 2024 Assessment & Plan (1) Stroke-like symptoms: Plan: 39-year-old female with past medical history significant for patent foramen ovale, GERD, history of hepatitis C virus infection status post interferon therapy, inflammatory polyarthritis, polysubstance use, history of IV drug abuse in remission, paranoid schizophrenia, depression, PTSD, anxiety state, history of COVID, history of ongoing alcoholism comes because of left facial droop. Patient was in the ER yesterday as she was brought by police as she was found walking in traffic. Patient was very agitated and and required 4 point restraint and Haldol and Ativan given. Alcohol level was 284 yesterday. But later she was more sober and she was discharged. Tonight around 12:30 AM patient noticed left facial droop and she has some trouble speaking. By time she came to ER her symptoms almost resolved. Currently there is no facial droop. And she is speaking fine. Denies any headache. Denies dizziness. No blurred vision or double vision. No runny nose. No sore throat. No cough. No chest pain or shortness of breath. No difficulty swallowing. No nausea. No abdominal pain. Normal bowel and bladder movements. Ambulating okay in the ER. Patient states she drinks several beers daily. States also smokes about 1/2 pack a day. Strokelike symptom Presented with a brief episode of left facial droop and difficulty speaking CT head showing infarct in posterior limb of the left internal capsule CTA head and neck unremarkable [facility] and recommended MRI scan and if MRI shows stroke to do full stroke workup-MRI came back negative study Start on aspirin Check lipid profile Neurochecks Monitor on telemetry Will follow echo Neurology consult in a.m. for further recommendation Alcoholism Alcohol withdrawal protocol with gabapentin and IV Ativan as needed Thiamine and folic acid and multivitamins Monitor for withdrawal History of drug use in remission On Suboxone Elevated CPK Getting fluids Follow repeat levels DVT prophylaxis SCDs Disposition Telemetry Full code History of Present Illness Chief Complaint: Strokelike symptom Primary Care Provider: Mario Hercules MD 39-year-old female with past medical history significant for patent foramen ovale, GERD, history of hepatitis C virus infection status post interferon therapy, inflammatory polyarthritis, polysubstance use, history of IV drug abuse in remission, paranoid schizophrenia, depression, PTSD, anxiety state, history of COVID, history of ongoing alcoholism comes because of left facial droop. Patient was in the ER yesterday as she was brought by police as she was found walking in traffic. Patient was very agitated and and required 4 point restraint and Haldol and Ativan given. Alcohol level was 284 yesterday. But later she was more sober and she was discharged. Tonight around 12:30 AM patient noticed left facial droop and she has some trouble speaking. By time she came to ER her symptoms almost resolved. Currently there is no facial droop. And she is speaking fine. Denies any headache. Denies dizziness. No blurred vision or double vision. No runny nose. No sore throat. No cough. No chest pain or shortness of breath. No difficulty swallowing. No nausea. No abdominal pain. Normal bowel and bladder movements. Ambulating okay in the ER. Patient states she drinks several beers daily. States also smokes about 1/2 pack a day. Past medical history. As mentioned above. Past surgical history. . Colonoscopy. Dilatation and curettage. Exploratory laparotomy. Laparoscopic repair of left inguinal hernia with mesh. Left knee arthroscopy. Social history. She smokes 1 pack a day per records. Heavy drinking of alcohol.. Currently denies any drug use. Family history. Patient is adopted Allergies Allergy/AdvReac Type Severity Reaction Status Date / Time morphine Allergy Severe RASH Verified 12/11/24 02:16 codeine Allergy Intermediate HIVES Verified 12/11/24 02:16 levofloxacin Allergy Intermediate HIVES Verified 12/11/24 02:16 sulfamethoxazole Allergy Intermediate HIVES Verified 12/11/24 02:16 trimethoprim Allergy Intermediate HIVES Verified 12/11/24 02:16 nitrofurantoin Allergy Unknown Unknown Verified 12/11/24 02:16 Penicillins Allergy Unknown AMOXICILLIN Verified 12/11/24 02:16 Quinolones AdvReac Intermediate NEURO SIDE Verified 12/11/24 02:16 EFFECTS Home Medications Medication Instructions Recorded Confirmed Type buprenorphine 8 mg-naloxone 2 mg 1.5 tab sublingual DAILY 12/11/24 12/11/24 History sublingual tablet Past Med/Surg History Problem List (Updated 12/11/24 @ 05:03 by Abbe Caraballo MD) Stroke-like symptoms Bigeminal rhythm (Acute) TIA (transient ischemic attack) (Acute) Agitation (Acute) Alcohol intoxication (Acute) Psychotic disorder with delusions Alcohol intoxication (Acute) Polysubstance use disorder Paranoia Bipolar 1 disorder, mixed E. coli UTI Inflammatory polyarthritis Paranoid schizophrenia, chronic condition with acute exacerbation (Acute) Alcohol intoxication (Acute) Insomnia Depression, unspecified Alcohol withdrawal syndrome (Acute) Alcohol dependence (Acute) Alcohol use disorder (Acute) DVT prophylaxis Discharge planning issues Wound of right lower extremity Traumatic open wound of right lower leg with infection Fever (Acute) Anemia (Acute) Tobacco abuse disorder (Chronic) Cellulitis of hand (Acute) MDD (major depressive disorder) (Chronic) Polysubstance abuse (Chronic) Cellulitis (Acute) History of hepatitis C (Chronic) Anemia (Chronic) Anxiety (Chronic) Panic attack (Chronic) Cervical paraspinal muscle spasm (Acute) Headache (Acute) Neck pain (Acute) Polysubstance dependence (Chronic) Surgical History History of section H/O hernia repair H/O: section Family History Other Adopted No pertinent family history Social History Smoking Status: Current every day smoker Tobacco Type: Cigarettes Cigarettes Per Day: 10; Second Hand Exposure: No; Do You Dip or Chew Tobacco: No; Hx Alcohol Use: Yes Alcohol type: beer Hx Substance Use: Yes Prescribed Medications: Opiates and Sedatives Non- Prescribed Medications Comment: Fentanyl and Xanax abuse Last Used Substance: Unknown Substance Use Type Other:: Pt refuses to answer. Preferred Language: Amharic Communication Ability: Effective Visual Impairment: No Limitations Bilingual [employer] Teacher Required: No Beliefs That Will Affect Care: None marital status: Single Current Living Situation: Alone How many Children do You have: 1 Feels Safe at Home: Yes Assistive Devices: None Review of Systems Review of Systems: All systems reviewed & are unremarkable except as noted in HPI & below Physical Exam Physical Exam: General- Not in distress. Head- atraumatic Eyes- PERRL. ENT- oropharynx clear Neck- supple, no JVD. Lungs- clear to auscultation no wheezing or crackles Heart- regular rate and rhythm; no murmur, no gallop. Abdomen- normal bowel sounds, soft, nontender, no masses . Extremities- no pretibial edema, no erythema seen Neuro- alert, oriented PERRL, no facial palsy; no dysarthria; power 5/5 bilaterally; no pronator drift, co ordination of movements normal, sensations intact, position sense intact. Skin- warm & dry Results & Data Results & Data Vital Signs (Past 12 Hours) Vital Signs Temp Pulse Pulse Resp BP BP Pulse Ox 12/11/24 03:54 36 L 12/11/24 03:40 83 17 108/58 L 98 12/11/24 03:21 58 L 12/11/24 02:04 84 12/11/24 01:46 37.2 C 83 16 129/95 97 12/11/24 01:46 37.2 C 84 16 129/95 95 O2 Del Method 12/11/24 03:54 12/11/24 03:40 Room Air 12/11/24 03:21 12/11/24 02:04 12/11/24 01:46 Room Air 12/11/24 01:46 Room Air Diagnostic Findings Laboratory Results WBC 7.05 K/ul (4.8-10.8) 12/11/24 01:55 RBC 4.07 M/uL (4.20-5.40) L 12/11/24 01:55 Hgb 11.8 g/dl (12.0-16.0) L 12/11/24 01:55 Hct 35.8 % (37.0-47.0) L 12/11/24 01:55 MCV 88.0 fL (80.0-100.0) 12/11/24 01:55 MCH 29.0 pg (25.0-34.0) 12/11/24 01:55 MCHC 33.0 g/dL (32.0-36.0) 12/11/24 01:55 RDW Std Deviation 45.1 fL (36.4-46.3) 12/11/24 01:55 RDW Coeff of Mateo 14.0 % (11.5-14.5) 12/11/24 01:55 Plt Count 252 K/uL (130-400) 12/11/24 01:55 MPV 10.2 fL (9.4-12.4) 12/11/24 01:55 Immature Gran % (Auto) 0.4 % 12/11/24 01:55 Neut % (Auto) 56.3 % 12/11/24 01:55 Lymph % (Auto) 31.2 % 12/11/24 01:55 [place] % (Auto) 7.1 % 12/11/24 01:55 Eos % (Auto) 4.7 % 12/11/24 01:55 Baso % (Auto) 0.3 % 12/11/24 01:55 Neut # (Auto) 3.97 K/uL (1.40-6.50) 12/11/24 01:55 Lymph # (Auto) 2.20 K/uL (1.20-3.40) 12/11/24 01:55 [place] # (Auto) 0.50 K/uL (0.11-0.59) 12/11/24 01:55 Eos # (Auto) 0.33 K/uL (0.00-0.50) 12/11/24 01:55 Baso # (Auto) 0.02 K/uL (0.00-0.20) 12/11/24 01:55 Immature Gran # (Auto) 0.03 K/uL (0.01-0.20) 12/11/24 01:55 PT 9.8 Seconds (9.0-12.0) 12/11/24 01:55 INR 0.9 (0.9-1.1) 12/11/24 01:55 APTT 27 Seconds (21-31) 12/11/24 01:55 PTT Ratio 1.0 12/11/24 01:55 Sodium 136 mmol/L (136-145) 12/11/24 01:55 Potassium 3.2 mmol/L (3.5-5.1) L 12/11/24 01:55 Chloride 104 mmol/L (98-107) 12/11/24 01:55 Carbon Dioxide 24 mmol/L (21-32) 12/11/24 01:55 Anion Gap 8 (3-11) 12/11/24 01:55 BUN 9 mg/dl (6-23) 12/11/24 01:55 Creatinine 0.63 mg/dl (0.6-1.2) 12/11/24 01:55 Est Cr Clr Drug Dosing 108.9 ml/min 12/11/24 01:55 eGFR 114.94 12/11/24 01:55 BUN/Creatinine Ratio 14.3 (10-20) 12/11/24 01:55 Glucose 111 mg/dl (70-99(Fasting)) H 12/11/24 01:55 Calcium 8.4 mg/dl (8.6-10.3) L 12/11/24 01:55 Magnesium 2.0 mg/dl (1.7-2.4) 12/11/24 01:55 Total Bilirubin 0.5 mg/dl (0.2-1.0) 12/11/24 01:55 AST 43 U/L (13-39) H 12/11/24 01:55 ALT 22 U/L (7-52) 12/11/24 01:55 Alkaline Phosphatase 63 U/L (34-104) 12/11/24 01:55 Total Creatine Kinase 706 U/L (26-192) H 12/11/24 01:55 Troponin I High Sens 5.2 pg/ml (0-14) 12/11/24 01:55 Total Protein 7.5 gm/dl (6.0-8.3) 12/11/24 01:55 Albumin 4.2 gm/dl (3.4-5.0) 12/11/24 01:55 Globulin 3.3 gm/dl (2.5-4.0) 12/11/24 01:55 Albumin/Globulin Ratio 1.3 (0.9-2) 12/11/24 01:55 HCG, Qual Negative (Negative) 12/11/24 01:55 Urine Opiates Screen Neg (Neg) 12/11/24 03:49 Ur Methadone, Qual Neg (Neg) 12/11/24 03:49 Urine Fentanyl Screen Neg (Neg) 12/11/24 03:49 Urine Barbiturates Neg (Neg) 12/11/24 03:49 Ur Phencyclidine (PCP) Neg (Neg) 12/11/24 03:49 U Amphetamin/Meth Scrn Neg (Neg) 12/11/24 03:49 MDMA (Ecstasy) Screen Neg (Neg) 12/11/24 03:49 U Benzodiazepines Scrn Neg (Neg) 12/11/24 03:49 Ur Cocaine Metabolite Neg (Neg) 12/11/24 03:49 U Marijuana (THC) Screen Neg (Neg) 12/11/24 03:49 Ethyl Alcohol mg/dL 60.0 mg/dl (<10.0) H 12/11/24 01:[address] 12/11/24 01:40 EXAM: CT head/brain wo con CLINICAL HISTORY: neuro deficit, acute stroke suspected TECHNIQUE: Multiple axial images are obtained from the skull base to the vertex without contrast. CT scan was performed according to ALARA (as low as reasonable achievable). COMPARISON: 04/30/2021 19:04:11 ENGINEER OF SYSTEM DEVELOPMENT FINDINGS: The brain shows normal morphology, attenuation, and volume for age. No evidence of space occupying lesion, hemorrhage, edema, mass effect, midline shift, extra axial collection, or hydrocephalus is noted. Infarct in posterior limb of left internal capsule. Ventricles, sulci, and basal cisterns are symmetric and normal in size and configuration. The justice-white matter differentiation is preserved. Visualized paranasal sinuses and mastoid air cells are well aerated. Orbital contents are within normal limits. Bony structures are intact. IMPRESSION: 1. Infarct in posterior limb of left internal capsule. (New finding) Electronically signed by Carlos A Silver 12-11-2024 03:00 AM Head CTA 12/11/24 01:40 EXAM: CT angio head w con CLINICAL HISTORY: neuro deficit, acute stroke suspected TECHNIQUE: Contrast enhanced thin slice CT angiography scan of the cerebral vessels was performed with intravenous contrast. Angiographic images were processed, 3D MIP images were acquired for interpretation. Contiguous axial images were obtained. Reformatted coronal and sagittal images were also reviewed. If IV contrast material had not been administered, the likelihood of detecting abnormalities relevant to the patients condition would have been substantially decreased. CT scan was performed according to ALARA (as low as reasonable achievable). COMPARISON: No FINDINGS: Bilateral internal carotid arteries show normal course, calibre and opacification in the canalicular and cavernous part. Their division into the anterior cerebral artery and middle cerebral artery is defined. A1, A2 and M1, M2 segments are normal on both the sides. Bilateral vertebral arteries are seen to unite the form the basilar artery in a normal fashion. Basilar artery shows normal course, caliber and opacification. Its division into the posterior cerebral arteries is defined. Bilateral P1 and P2 segments are normal. Visualized venous structures show normal opacification. No evidence of intracranial aneurysm or AV malformation is seen. Hypoplastic right vertebral artery. IMPRESSION: 1. No evidence of stenosis or aneurysm. No evidence of dissection. Electronically signed by Carlos A Silver 12-11-2024 03:18 AM Neck CTA 12/11/24 01:40 EXAM: CT angio neck with con CLINICAL HISTORY: neuro deficit, acute stroke suspected TECHNIQUE: Contrast enhanced thin slice CT angiography scan of the carotid vessels was performed with intravenous contrast. Angiographic images were processed, 3D MIP images were acquired for interpretation.Contiguous axial images were obtained. Reformatted coronal and sagittal images were also reviewed. If IV contrast material had not been administered, the likelihood of detecting abnormalities relevant to the patients condition would have been substantially decreased. CT scan was performed according to ALARA (as low as reasonably achievable). COMPARISON: No FINDINGS: Included great vessels of the aortic arch are grossly unremarkable. Common carotid artery, carotid Bulb, internal carotid artery , and origin of the external carotid artery are well opacified. Vertebral arteries are well opacified. Jugular veins are well opacified. Included lung apices are grossly unremarkable. Thyroid gland appears unremarkable. Hypoplastic right vertebral artery. IMPRESSION: 1. No evidence of stenosis or aneurysm. No evidence of dissection. Electronically signed by Carlos A Silver 12-11-2024 03:34 AM ECG Additional Comments: ECG. Normal sinus rhythm rate of 82. Nonspecific T wave abnormality in anterior leads. QTc 434 Code Status & VTE Plan VTE Prophylaxis Plan VTE Prophylaxis will be ordered: Yes
--- NOTE | 2024-12-11 05:51 | Magnetic Resonance Report ---
EXAM: MR brain wo con CLINICAL HISTORY: Possible stroke. TECHNIQUE: MRI of the brain was performed without contrast with multiplanar sequences obtained. COMPARISON: 12/11/2024 01:24:[address] head and prior CT studies dated 03/21/2024 and 04/30/2021 were reviewed. FINDINGS: Brain Parenchyma: No evidence of acute infarction or hemorrhage. Normal justice-white matter differentiation. No mass lesions or focal cortical abnormalities were identified. Ventricles and Sulci: Normal size and configuration of the lateral ventricles, third ventricle, and fourth ventricle. No evidence of hydrocephalus or ventriculomegaly. Sylvian fissures, sulci, and cisterns are within normal limits. Dilated periventricular Virchow-Mehdi spaces. Posterior Fossa: Cerebellum and brainstem appear normal without evidence of mass lesions or signal abnormalities. Cranial Nerves: Normal course and appearance of cranial nerves identified. Vessels: No evidence of vascular malformations or aneurysms. Intracranial arteries and veins appear normal without evidence of stenosis or occlusion. Orbits and Skull Base: Orbits and skull base structures are normal without evidence of abnormalities. IMPRESSION: 1. No evidence of acute infarction or acute intracranial abnormality was identified. 2. Normal appearance of brain parenchyma, ventricular system, posterior fossa, cranial nerves, vessels, orbits, and skull base. Electronically signed by Mani Montano 12-11-2024 05:51 AM
[2024-12-11] MEDS: POTASSIUM CHLORIDE CRTAB 20 MEQ TABCR PO STA (06:45)
[2024-12-11] MEDS ORDERED: LORazepam 2 MG/1 ML VIAL IV PRN ×2 (07:31)
[2024-12-11] MEDS ORDERED: GABAPENTIN 1200MG ALCOHOL WITHDRAWAL LOAD PO STA (07:31)
[2024-12-11] MEDS ORDERED: Ativan IV Alcohol Withdrawal--Active Protocol IV PRN (07:31)
[2024-12-11] MEDS ORDERED: NITROGLYCERIN SL 0.4 MG/TAB TAB SL PRN (07:31)
[2024-12-11] MEDS ORDERED: PHARMACIST DISCHARGE MED REC CONSULT PRN (07:31)
[2024-12-11] MEDS: SODIUM CHLORIDE 0.9% 1,000 ML IV SCH (07:50)
[2024-12-11] MEDS: GABAPENTIN 600 MG TAB PO ONE (07:50)
[2024-12-11 07:52] VITALS: RESP 18; TEMP 98.6
--- NOTE | 2024-12-11 08:40 | Neurology Consultation ---
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 MRI brain Negative. Would defer on any additional neuro work up. Follow up PRN w neuro for now. History of Present Illness Reason for Consultation: Facial droop Requesting Physician: Dr. Silverio Reyez Attending Physician: Abbe Caraballo MD History of Present Illness A 39 y F w Hx of substance use and alcohol presented to ER intoxicated and agitated. She developed a facial droop yesterday that has resolved. [place] like her jaw was dislocated and tongue felt heavy. Symptoms resolved. No facial numbness. No arm or leg weakness or numbness. Blood ETOH was high. Allergies Allergy/AdvReac Type Severity Reaction Status Date / Time morphine Allergy Severe RASH Verified 12/11/24 02:16 codeine Allergy Intermediate HIVES Verified 12/11/24 02:16 levofloxacin Allergy Intermediate HIVES Verified 12/11/24 02:16 sulfamethoxazole Allergy Intermediate HIVES Verified 12/11/24 02:16 trimethoprim Allergy Intermediate HIVES Verified 12/11/24 02:16 nitrofurantoin Allergy Unknown Unknown Verified 12/11/24 02:16 Penicillins Allergy Unknown AMOXICILLIN Verified 12/11/24 02:16 Quinolones AdvReac Intermediate NEURO SIDE Verified 12/11/24 02:16 EFFECTS Home Medications Medication Instructions Recorded Confirmed Type buprenorphine 8 mg-naloxone 2 mg 1.5 tab sublingual DAILY 12/11/24 12/11/24 History sublingual tablet Patient History Surgical History History of section H/O hernia repair H/O: section Family History Other Adopted No pertinent family history Social History Smoking Status: Current every day smoker Tobacco Type: Cigarettes Cigarettes Per Day: 10; Second Hand Exposure: No; Do You Dip or Chew Tobacco: No; Hx Alcohol Use: Yes Alcohol type: beer Hx Substance Use: Yes Prescribed Medications: Opiates and Sedatives Non- Prescribed Medications Comment: Fentanyl and Xanax abuse Last Used Substance: Unknown Substance Use Type Other:: Pt refuses to answer. Preferred Language: Danish Communication Ability: Effective Visual Impairment: No Limitations Table Cut Off Saw Operator Required: No Beliefs That Will Affect Care: None marital status: Single Current Living Situation: Alone How many Children do You have: 1 Feels Safe at Home: Yes Assistive Devices: None Physical Exam Physical Exam: EXAM: Constitutional: appearance normally developed Face: normocephalic and atraumatic Eyes: normal lids, normal conjunctiva Neck: supple Respiratory: normal effort Abdomen: non distended Skin: no rashes, lesions, or ulcers noted Psychiatric: normal mood and normal affect NEUROLOGIC EXAMINATION: Appearance: no acute distress Orientation: awake, alert and oriented x 3 Mental Status: alert Attention: normal Knowledge: appropriate Language: no aphasia Speech: no dysarthria Cranial Nerves: CN 2 - no visual defect on confrontation and pupils round, equal CN 3, 4, 6 - extra-ocular movements intact CN 5 - facial sensation intact CN 7 - no facial asymmetry CN 8 - intact hearing CN 9, 10 - palate symmetric CN 11 - good shoulder shrug CN 12 - tongue midline Gait: deferred Coordination: no ataxia with finger to nose testing Sensory: intact and symmetric to light touch Results & Data Vital Signs (Past 12 Hours) Vital Signs Temp Pulse Pulse Resp BP BP Pulse Ox 12/11/24 07:51 37.0 C 75 18 91/49 L 97 12/11/24 07:40 84 97 12/11/24 07:37 87 12/11/24 07:24 80 16 94/67 L 12/11/24 05:00 96 H 20 116/78 98 12/11/24 03:54 36 L 12/11/24 03:40 83 17 108/58 L 98 12/11/24 03:21 58 L 12/11/24 02:04 84 12/11/24 01:46 37.2 C 83 16 129/95 97 12/11/24 01:46 37.2 C 84 16 129/95 95 O2 Del Method 12/11/24 07:51 Room Air 12/11/24 07:40 Room Air 12/11/24 07:37 12/11/24 07:24 Room Air 12/11/24 05:00 Room Air 12/11/24 03:54 12/11/24 03:40 Room Air 12/11/24 03:21 12/11/24 02:04 12/11/24 01:46 Room Air 12/11/24 01:46 Room Air Diagnostic Findings MRI brain reviewed. No evidence of stroke or acute intracranial abnormality. CTA head and neck shows no LVO or stenosis,
[2024-12-11] MEDS: LACTATED RINGER'S 500 ML IV ONE (08:53)
[2024-12-11 09:00] LABS: Folate (Folic Acid),Ser orPlas 13.76 ng/ml (>5.38)
[2024-12-11 09:21] LABS: BUN Creatinine Ratio 14.3 (10-20); Calcium 7.7 mg/dl (8.6-10.3); Potassium 3.9 mmol/L (3.5-5.1)
[2024-12-11] MEDS: BUPRENORPHINE/NALOXONE 8/2 MG TAB SL SCH (09:24)
[2024-12-11] MEDS: MULTIVITAMIN TAB PO SCH (09:24)
[2024-12-11] MEDS: THIAMINE HCL 100 MG in SYRINGE 9 ML IV SCH (09:25)
[2024-12-11] MEDS: FOLIC ACID 1 MG in SYRINGE 9.8 ML IV SCH (09:25)
[2024-12-11] MEDS: GABAPENTIN 600 MG TAB PO SCH (11:14)
[2024-12-11] MEDS: LORazepam 2 MG/1 ML VIAL IV PRN (11:21)
[2024-12-11] MEDS ORDERED: STROKE PATIENT DISCHARGE STA (14:01)
--- NOTE | 2024-12-11 14:11 | Electrocardiogram Report ---
Test Reason : Blood Pressure : */* mmHG Vent. Rate : 82 BPM Atrial Rate : 82 BPM P-R Int : 162 ms QRS Dur : 84 ms QT Int : 372 ms P-R-T Axes : 51 14 36 degrees QTcB Int : 434 ms Normal sinus rhythm Low voltage QRS Cannot rule out Anterior infarct , age undetermined Abnormal ECG When compared with ECG of 25-Jul-2024 15:10, Fusion complexes are no longer Present Nonspecific T wave abnormality, worse in Anterior leads Confirmed by Teodora Layne ([id number]) on 12/11/2024 2:11:05 PM Referred By: REFERRED SELF Confirmed By: Teodora Layne
[2024-12-11 14:48] VITALS: BP 113/76; PULSE 99; O2SAT 98
--- NOTE | 2024-12-11 18:18 | Discharge Summary ---
Discharge Summary Date of Service December 11, 2024 Principal Dx & Hospital Course #1 = Principal Diagnosis (1) Stroke-like symptoms: 39-year-old female with past medical history significant for patent foramen ovale, GERD, history of hepatitis C virus infection status post interferon therapy, inflammatory polyarthritis, polysubstance use, history of IV drug abuse in remission, paranoid schizophrenia, depression, PTSD, anxiety state, history of COVID, history of ongoing alcoholism comes because of left facial droop. Patient was in the ER yesterday as she was brought by police as she was found walking in traffic. Patient was very agitated and and required 4 point restraint and Haldol and Ativan given. Alcohol level was 284 yesterday. But later she was more sober and she was discharged. Tonight around 12:30 AM patient noticed left facial droop and she has some trouble speaking. By time she came to ER her symptoms almost resolved. Currently there is no facial droop. And she is speaking fine. Denies any headache. Denies dizziness. No blurred vision or double vision. No runny nose. No sore throat. No cough. No chest pain or shortness of breath. No difficulty swallowing. No nausea. No abdominal pain. Normal bowel and bladder movements. Ambulating okay in the ER. Patient states she drinks several beers daily. States also smokes about 1/2 pack a day. Strokelike symptom Presented with a brief episode of left facial droop and difficulty speaking CT head showing infarct in posterior limb of the left internal capsule CTA head and neck unremarkable ER spoke with [facility] neurology and recommended MRI scan and if MRI shows stroke to do full stroke workup-MRI came back negative study Start on aspirin Check lipid profile Neurochecks Monitor on telemetry Will follow echo Neurology consult in a.m. for further recommendation Alcoholism Alcohol withdrawal protocol with gabapentin and IV Ativan as needed Thiamine and folic acid and multivitamins Monitor for withdrawal History of drug use in remission On Suboxone Elevated CPK Getting fluids Notes For Next Care Provider 39-year-old female with past medical history significant for patent foramen ovale, GERD, history of hepatitis C virus infection status post interferon therapy, inflammatory polyarthritis, polysubstance use, history of IV drug abuse in remission, paranoid schizophrenia, depression, PTSD, anxiety state, history of COVID, history of ongoing alcoholism comes because of left facial droop. On medicine, MR head revealed no acute process. Neurology consulted, suggested facial spasm in setting of alcohol use as cause of facial droop with no further workup requested. Patient refused any rehab for alcohol use, does not want to quit drinking, and states she will continue to drink. Understands risks of continued alcohol use. On 12/11/2024 patient medically stable for discharge home. Medication Changes From Visit -vitamins Admission HPI Per Admitting Provider 39-year-old female with past medical history significant for patent foramen ovale, GERD, history of hepatitis C virus infection status post interferon therapy, inflammatory polyarthritis, polysubstance use, history of IV drug abuse in remission, paranoid schizophrenia, depression, PTSD, anxiety state, history of COVID, history of ongoing alcoholism comes because of left facial droop. Patient was in the ER yesterday as she was brought by police as she was found walking in traffic. Patient was very agitated and and required 4 point restraint and Haldol and Ativan given. Alcohol level was 284 yesterday. But later she was more sober and she was discharged. Tonight around 12:30 AM patient noticed left facial droop and she has some trouble speaking. By time she came to ER her symptoms almost resolved. Currently there is no facial droop. And she is speaking fine. Denies any headache. Denies dizziness. No blurred vision or double vision. No runny nose. No sore throat. No cough. No chest pain or shortness of breath. No difficulty swallowing. No nausea. No abdominal pain. Normal bowel and bladder movements. Ambulating okay in the ER. Patient states she drinks several beers daily. States also smokes about 1/2 pack a day. Past medical history. As mentioned above. Past surgical history. . Colonoscopy. Dilatation and curettage. Exploratory laparotomy. Laparoscopic repair of left inguinal hernia with mesh. Left knee arthroscopy. Social history. She smokes 1 pack a day per records. Heavy drinking of alcohol.. Currently denies any drug use. Family history. Patient is adopted Discharge Exam Gen: A&O 3 NAD HEENT: NCAT, EOMI, not icteric. External ears normal. No rhinorrhea. Moist mucous membranes. Neck: Supple, full range of motion, no observable masses, No meningeal sign. Lungs: No Respiratory distress. CV: RRR, no edema. Abdomen: Soft, nondistended, No rebound tenderness. MSK: No joint swelling, no redness. Skin: No rashes, petechiae, lesions. Normal color per patient. Neuro: Normal Gait, Grossly intact. Psych: flat affect Updated Medication List Medication Instructions Recorded Confirmed Type buprenorphine 8 mg-naloxone 2 mg 1.5 tab sublingual DAILY 12/11/24 12/11/24 History sublingual tablet folic acid-vit B6-vit B12 0.8 1 tab PO PM #30 tabs 12/11/24 Rx mg-10 mg-115 mcg tablet multivitamin with folic acid 400 1 tab PO QAM #30 tabs 12/11/24 Rx mcg tablet (Daily-Александр (with folic acid)) Hospital Stay Data Consultations 12/11/24 03:50 ED Decision to Admit Stat 12/11/24 08:00 Consult Neurology Routine Diagnostic Imagining Performed 12/11/24 01:40 CT angio head w con Stat CT angio neck with con Stat CT head/brain wo con Stat 12/11/24 04:00 MR brain wo con Stat Pending Results Patient Have Any Pending Studies at Discharge: No Discharge Instructions Given to Patient (Per Discharging Provider) 1. Please stop drinking alcohol and sign up for alcohol rehab. You denied wanting rehab at this time. Total Time Total Time Spent Total Time Spent (In Minutes): I spent a total of 35 minutes in direct patient care, including [id number] time with the patient and/or family, reviewing medical records, ordering and reviewing diagnostic tests, and coordinating care with other healthcare providers. This time includes: history taking, physical examination, medical decision making, counseling, ECG interpretation, imaging interpretation, lab interpretation, orders, and education, excluding time spent in the performance of separately billed services.
[2024-12-12] MEDS ORDERED: GABAPENTIN 600 MG TAB PO SCH (00:45)
[2024-12-13] MEDS ORDERED: GABAPENTIN 600 MG TAB PO SCH (04:45)
[2024-12-14] MEDS ORDERED: GABAPENTIN 600 MG TAB PO SCH (16:45)
== END 2024-12-11 15:04 | disposition home or self-care (01) | DRG 74 ==
LOC: ED 01:35 → EDINP 04:46